=== PATIENT | female | born 1970 | race Caucasian/White ===

== ENCOUNTER 2022-01-24 09:26 | Outpatient (RCR) | payer MEDICARE, SELFPAY ==
--- OUTSIDE RECORDS SUMMARY | 2022-01-18 14:36 | XMS_ITS | Continuity of Care Document ---
:1970 Author Care Team Providers Name Role Phone MD Juvencio Penny Primary Care Physician BRIAN Solo Attending Physician Allergies, Adverse Reactions, Alerts No known allergies Social History Smoking Status Status Start Date End Date Date of Observat ion Ex-smoker (finding) October 20, 2021 11:32am Observation Status Observation Response Date of Response Former smoker April 30, 2019 2: 04pm Does not use illicit drugs April 30, 2019 2:04pm Occasional alcohol consumption April 302018 2:04pm Additional Data Assigned Sex Female Problems Active Problems Medical Problem Onset Date Status Claustrophobia Active Sjogren's disease Active Lupus Active Fibromyalgia Active Osteopenia Active Complex regional pain syndrome Active Primary hypercoagulable state Active Activated protein C resistance Active Prothrombin gene mutation Active Anticoagulation goal of INR 2 to Active 3 Colon polyps Resolved Subtherapeutic international Active normalized ratio (INR) dental prophylaxis Active Chronic sinusitis Active Constipation Active History of appendectomy Active History of bilateral tubal Active ligation History of cervical spinal Active surgery History of foot surgery Active History of hysterectomy Active Hx of colonoscopy March 30, 2020 Active Inactive/Resolved Problems Medical Problem Onset Date Status Follow up Resolved Medications Medication Status Dose Units Route Directions Qty Days Start End Ins tructions Date Date Calcium Active 500 MG PO Daily 100 Carbonate Cholecalcife Active Unknow PO Daily 100 rol (Vitamin n Dose D) Unknown Strength TAB Famotidine Active 20 MG PO Twice A Day January (Pepcid) 20 , Mg TAB 2019 10:13am Hydrocortiso Active 1 CRE MD Every 3-4 25 September ne Acetate Hours as , W/ Pram needed 2021 (Analpram Hc 11:21am 2.5-1 %) 1 Cre CRE Hydroxychlor Active 200 MG PO Twice A Day oquine Sulfate (Plaquenil) Unknown Strength TAB Mycophenolat Active 2500 PO Twice A Day 1500 in am e Mofetil 1000 in pm (Cellcept) Unknown Strength TAB Probiotic Active 1 PO Daily Product (Probiotic) TAB Trazodone Active 50 MG PO Bedtime 30 Hcl Vegetable/Fr Active 1 CAPSULE PO Daily uit Cap Warfarin Active 5 MG PO As Directed November Ness 5 MG, M 5 Sodium , MG, Tu 5 MG, 2021 W 5 MG, Th 5 9:59am MG, F 5 MG, Sa 5 MG Zolpidem Active 10 MG PO Bedtime as 30 Tartrate needed Amoxicillin/ Disconti 1 TAB PO Twice Daily Ma rch Clavulanate nued For 14 Days y , , Potassium 2021 2021 (Amoxicillin 10:43am 10:58a & Pot m Clavulanate) 875 Mg/125 Mg TAB Amoxicillin/ Disconti 1 TAB PO Twice A Day July brua Clavulanate nued , ry Potassium 2021 3rd, (Amoxicillin 9:30am 2021 & Pot 9:30am Clavulanate) 875 Mg/125 Mg TAB Amoxicillin/ Disconti 1 TAB PO Twice Daily September Clavulanate nued For 10 Days , , Potassium 2019 2019 (Amoxicillin 9:41am 9:52am & Pot Clavulanate) 875 Mg/125 Mg TAB Amoxicillin/ Disconti 1 TAB PO Twice Daily January st Clavulanate nued For 7 Days , , Potassium 2017 2017 (Amoxicillin 9:08am 11:14a & Pot m Clavulanate) 875 Mg/125 Mg TAB Apixaban Disconti 5-10 MG PO .as Direc 74 February 10 MG BID X 7 (Eliquis nued , 9, DAYS THEN 5 Starter 2020 2020 MG BID Pack) 5 Mg 11:55am 8:40am TAB B-Complex Disconti Unknow PO Daily 100 Februa Vitamins nued n Dose ry (Vitamin B 3rd, Complex) 2021 Unknown 9:30am Strength CAP Balance Of Disconti September Nature nued 2021 10:58a m Calcium/Maye Disconti Unknow PO Daily 100 Octobe min D nued n Dose r 4th, (Calcium 2019 Carbonate/Vi 2:23pm tamin D) Unknown Strength TAB Cyclosporine Disconti 1 DROP BOTH Twice A Day 60 Apri l (Restasis) nued EYES 10th, 0.05 % EMU 2018 7:57am Diazepam Disconti 5 MG PO Three Times 15 January (Valium) 5 nued A Day er , Mg TAB 2017 8:53am 3:53pm Diazepam Disconti 10 MG PO Once December Take 10m g 1 (Valium) 10 nued , 3rd, hour bef ore Mg TAB 2016 2016 procedure. 3:03pm 9:54am Diclofenac Disconti 2-4 GRAMS TOP Four Times January Sodium nued Daily r , (Voltaren) 2016 % GEL 11:48am 8:53am Diphtheria/T Disconti 0.5 ML IM Once October etanus/Acell nued 10th, 10th, Pertussis 2018 2018 (Adacel) 0.5 8:11am 8:46am Ml INJ Enoxaparin Disconti 60 MG SUBQ Twice A Day January 60mg subcutaneously twice a day for total of 7 days (follow Sodium nued , schedule disc ussed in clinic). 2019 2020 10:30am 7:40am Enoxaparin Disconti 60 MG SUBQ Twice A Day 6 November 60mg Sodium nued , , subcutaneousl 2019 2019 y twice a day 3:28pm 10:30a for total of m 5 days. Enoxaparin Disconti 60 MG SUBQ Twice A Day November Sodium nued 2019 9:27am 3:28pm Exovac Disconti Unknjanuary nued n Dose 2017 8:53am Famotidine Disconti 20 MG PO Twice A Day December (Pepcid) 20 nued , , Mg TAB 2019 2019 10:32am 10:13a m Famotidine Disconti 20 MG PO Twice A Day September (Pepcid) 20 nued , , Mg TAB 2019 2019 2:26pm 10:32a m Famotidine Disconti 20 MG PO Twice A Day October (Pepcid) 20 nued , 30th, Mg TAB 2018 2019 8:11am 2:26pm Famotidine Disconti 20 MG PO Twice A Day January (Pepcid) 20 nued 5th, 10th, Mg TAB 2016 2018 3:09pm 8:11am Flaxseed Disconti Unknow PO October (Linseed) nued n Dose 10th, (Flaxseed 2019 Oil) Unknown 7:57am Strength CAP Fluconazole Disconti 150 MG PO Once January 1 ta b by mouth once at start of yeast infection; november repeat nued , , in 72 hours if needed. 2017 2017 9:08am 11:14a m Fluticasone Disconti 2 SPRAY EACH Daily as April Propionate nued NOSTR needed , , (Nasal) 2019 2020 10:07am 7:40am Fluticasone Disconti 2 SPRAY EACH Daily as Decemberobe Propionate nued NOSTR needed , r , (Nasal) 2019 2019 12:16pm 10:07a m Fluticasone Disconti 2 SPRAY EACH Daily as October Propionate nued NOSTR needed , , (Nasal) 2018 2019 8:11am 12:16p m Fluticasone Disconti 2 SPRAY EACH Daily February Propionate nued NOSTR , , (Nasal) 2017 2018 11:39am 8:11am Influenza Disconti 0.5 ML IM Once Virus nued r , er Vaccine 2020 06, Split 8:21am 2019 (Fluzone 8:22am Quadrivalent 2019 0.5 Ml) 1 Inj INJ Loteprednol Disconti 0.5 % OP January Etabonate nued , (Lotemax) 2017 0.5 % SERGIO 8:53am Magnesium Disconti Unknow PO Daily 100 Februa Oxide nued n Dose ry 2021 9:30am Methylpredni Disconti 1 TAB PO As Directed Ju ly DIRECTED solone nued er , ON PACKAGE (Medrol 2017 Dosepak) 2016 8:53am Mg ARTIS 1:26pm Ondansetron Disconti 4 MG PO Every 6 September Hcl nued Hours as , , needed 2021 2021 11:21am 9:44am Phenazopyrid Disconti 100 MG PO Three Times January st ine Hcl nued A Day as , (Pyridium) needed 2017 2017 100 Mg TAB 9:43am 11:14a m Phytonadione Disconti 5 MG PO Once February (Aqua-Mephyt nued , , on (Vitamin 2020 2020 K)) 10 Mg/Ml 3:17pm 3:21pm INJ Prednisone Disconti 10 MG PO As Directed Februa nued ry 2021 9:30am Prednisone Disconti 20 MG PO Daily February nued , , 2017 2018 11:36am 7:52am Trazodone Disconti Unknow PO Bedtime 23 February Hcl nued n Dose 2020 7:40am Warfarin Disconti 5 MG PO As Directed November Ness 5 MG, M 5 Sodium nued , , MG, Tu 5 MG, 2021 2021 W 5 MG, Th 5 9:32am 9:59am MG, F 5 MG, Sa 5 MG Warfarin Disconti 5 MG PO As Directed October Ness 5 MG, M 5 Sodium nued , 11th, MG, Tu 5 MG, 2021 2021 W 5 MG, Th 5 10:00am 9:32am MG, F 5 MG, Sa 5 MG Warfarin Disconti 5 MG PO As Directed September Ness 5 MG, M 5 Sodium nued , , MG, Tu 5 MG, 2021 2021 W 5 MG, Th 5 10:25am 10:00a MG, F 5 MG, m Sa 5 MG Warfarin Disconti 5 MG PO As Directed September Ness 5 MG, M 5 Sodium nued , , MG, Tu 5 MG, 2021 2021 W 5 MG, Th 5 9:29am 10:25a MG, F 5 MG, m Sa 5 MG Warfarin Disconti 5 MG PO As Directed September Ness 5 MG, M 5 Sodium nued y , , MG, Tu 5 MG , 2021 2021 W 5 MG, Th 5 8:52am 9:29am MG, F 5 MG, Sa 5 MG Warfarin Disconti 5 MG PO As Directed ua Ness 5 MG, M 5 Sodium nued y 16th, ry MG, Tu 5 MG , 2021, W 5 MG, Th 5 10:13am 2021 MG, F 5 MG, 8:52am Sa 5 MG Warfarin Disconti 5 MG PO As Directed uar Februa Ness 5 MG, M 5 Sodium nued y 3rd, ry MG, Tu 5 MG, 2021, W 5 MG, Th 5 9:44am 2021 MG, F 5 MG, 10:13a Sa 5 MG m Warfarin Disconti 5 MG PO As Directed Julyua Ness 5 MG, M 4 Sodium nued 17th, ry MG, Tu 5 MG, 2021 09, W 4 MG, Th 5 3:01pm 2021 MG, F 4 MG, 9:44am Sa 5 MG Warfarin Disconti 4 MG PO As Directed Julyua Ness 5 MG, M 4 Sodium nued 17th, ry MG, Tu 5 MG, 2021 09, W 4 MG, Th 5 3:01pm 2021 MG, F 4 MG, 9:30am Sa 5 MG Warfarin Disconti 4 MG PO As Directed mbe Januar Ness 5 MG, M 4 Sodium nued r 21st, y MG, Tu 5 MG , 2020, W 4 MG, Th 5 3:19pm 2021 MG, F 4 MG, 3:01pm Sa 5 MG Warfarin Disconti 5 MG PO As Directed mbe Januar Ness 5 MG, M 4 Sodium nued r 21st, y MG, Tu 5 MG , 2020, W 4 MG, Th 5 3:19pm 2021 MG, F 4 MG, 3:01pm Sa 5 MG Warfarin Disconti 4 MG PO As Directed mbe Decemb Ness 5 MG, M 4 Sodium nued r 16th, er MG, Tu 5 MG , 2020, W 4 MG, Th 5 2:06pm 2020 MG, F 4 MG, 3:19pm Sa 5 MG Warfarin Disconti 5 MG PO As Directed Decembe Decemb Ness 5 MG, M 4 Sodium nued r 16th, er MG, Tu 5 MG , 2020, W 4 MG, Th 5 2:06pm 2020 MG, F 4 MG, 3:19pm Sa 5 MG Warfarin Disconti 4 MG PO Daily 26 May Decemb Ness 5 MG, M 4 Sodium nued 28th, er MG, Tu 5 MG, 2020, W 4 MG, 10:06am 2020 MG, F 4 MG, 2:06pm Sa 5 MG Warfarin Disconti 5 MG PO Daily Ness 5 MG, M 4 Sodium nued r , er MG, Tu 5 MG , 2020, W 4 MG, 10:16am 2020 MG, F 4 MG, 2:06pm Sa 5 MG Warfarin Disconti 5 MG PO Daily April Ness 5 MG, M 4 Sodium nued , er MG, Tu 5 MG, 2020, W 4 MG, 10:06am 2020 MG, F 4 MG, 10:16a Sa 5 MG m Warfarin Disconti 4 MG PO Daily Ness 5 MG, M 4 Sodium nued er r MG, Tu 5 MG, , , W 4 MG, 2020 MG, F 4 MG, 1:38pm 10:06a Sa 5 MG m Warfarin Disconti 5 MG PO Daily Ness 5 MG, M 4 Sodium nued er r MG, Tu 5 MG, , , W 4 MG, 2020 MG, F 4 MG, 1:38pm 10:06a Sa 5 MG m Warfarin Disconti 6 MG PO As Directed January S u 6 MG, M 6 Sodium nued , ailin MG, Tu 3 MG, 2020, W 6 MG, Th 3 9:00am 2020 MG, F 6 MG, 1:41pm Sa 6 MG Warfarin Disconti 4 MG PO Daily Marem Ness 5 MG, M 4 Sodium nued er ailin MG, Tu 5 MG, , 30, W 4 MG, 2020 MG, F 4 MG, 8:48am 1:38pm Sa 5 MG Warfarin Disconti 5 MG PO Daily Ness 5 MG, M 4 Sodium nued er ailin MG, Tu 5 MG, , 30, W 4 MG, 2020 MG, F 4 MG, 8:48am 1:38pm Sa 5 MG Warfarin Disconti 4 MG PO Daily Ness 5 MG, M 4 Sodium nued er ailin MG, Tu 5 MG, , , W 4 MG, 5 2020 2020 MG, F 4 MG, 12:24pm 8:48am Sa 5 MG Warfarin Disconti 5 MG PO Daily Ness 5 MG, M 4 Sodium nued er ailin MG, Tu 5 MG, , , W 4 MG, Th 5 2020 2020 MG, F 4 MG, 12:24pm 8:48am Sa 5 MG Warfarin Disconti 4 MG PO Daily Ness 5 MG, M 4 Sodium nued er 2nd, ailin MG, Tu 5 MG , 2020, W 4 MG, Th 5 10:39am 2020 MG, F 4 MG, 12:24p Sa 5 MG m Warfarin Disconti 5 MG PO Daily Ness 5 MG, M 4 Sodium nued er 2nd, ailin MG, Tu 5 MG , 2020, W 4 MG, 5 10:39am 2020 MG, F 4 MG, 12:24p Sa 5 MG m Warfarin Disconti 6 MG PO As Directed January Ness 6 MG, M 6 Sodium nued , , MG, Tu 6 MG, 2020 2020 W 6 MG, Th 3 8:32am 9:00am MG, F 6 MG, Sa 6 MG Warfarin Disconti 6 MG PO As Directed December Ness 6 MG, M 6 Sodium nued , , MG, Tu 6 MG, 2020 2020 W 6 MG, Th 3 10:45am 8:32am MG, F 6 MG, Sa 6 MG Warfarin Disconti 6 MG PO As Directed September Ness 6 MG, M 6 Sodium nued , , MG, Tu 6 MG, 2020 2020 W 6 MG, Th 3 2:33pm 10:45a MG, F 6 MG, m Sa 6 MG Warfarin Disconti 6 MG PO As Directed September Ness 6 MG, M 6 Sodium nued r 9, 2nd, MG, Tu 6 MG, 2019 2020 W 6 MG, Th 3 10:55am 2:33pm MG, F 6 MG, Sa 6 MG Warfarin Disconti 6 MG PO As Directed April Ness 6 MG, M 6 Sodium nued 9th, er MG, Tu 6 MG, 2020 03, W 6 MG, 8:43am 2020 MG, F 6 MG, 10:55a Sa 6 MG m Warfarin Disconti 6 MG PO As Directed January S u 6 MG, M 6 Sodium nued , r 9th, MG, Tu 6 MG, 2019 2019 W 6 MG, 2:24pm 8:43am MG, F 6 MG, Sa 6 MG Warfarin Disconti 6 MG PO As Directed October Ness 6 MG, M 6 Sodium nued , 8th, MG, Tu 6 MG, 2019 2019 W 6 MG, 5:01pm 2:24pm MG, F 6 MG, Sa 6 MG Warfarin Disconti 6 MG PO As Directed October Ness 6 MG, M 6 Sodium nued , , MG, Tu 6 MG, 2019 2019 W 6 MG, 12:50pm 5:01pm MG, F 6 MG, Sa 6 MG Warfarin Disconti 6 MG PO Daily July Ness 6 M G, M 6 Sodium nued , 9, MG, Tu 3 MG, 2019 2019 W 6 MG, 1:21pm 12:50p MG, F 6 MG, m Sa 6 MG Warfarin Disconti 6 MG PO Daily April Ness 6 MG, M 6 Sodium nued , y 9, MG, Tu 3 MG, 2018 2019 W 6 MG, 9:33am 1:21pm MG, F 6 MG, Sa 6 MG Warfarin Disconti 6 MG PO Daily April Ness 6 MG, M 6 Sodium nued 3rd, r MG, Tu 3 MG, 2018, W 6 MG, 10:42am 2019 MG, F 6 MG, 9:33am Sa 6 MG Warfarin Disconti 6 MG PO Daily February Ness 6 M G, M 3 Sodium nued , r 3rd, MG, Tu 6 MG, 2018 2018 W 6 MG, 1:45pm 10:42a MG, F 6 MG, m Sa 3 MG Warfarin Disconti 6 MG PO Daily January Ness 6 MG , M 3 Sodium nued , , MG, Tu 6 MG, 2018 2018 W 6 MG, 3:16pm 1:45pm MG, F 6 MG, Sa 3 MG Warfarin Disconti 6 MG PO Daily December Ness 6 MG, M 3 Sodium nued 17th, 3rd, MG, Tu 6 MG, 2018 2018 W 6 MG, 11:43am 3:16pm MG, F 6 MG, Sa 3 MG Warfarin Disconti 6 MG PO Daily October Ness 6 MG, M 3 Sodium nued 25th, 17th, MG, Tu 6 MG, 2018 2018 W 6 MG, 9:33am 11:43a MG, F 6 MG, m Sa 3 MG Warfarin Disconti 6 MG PO Daily October Ness 6 MG, M 3 Sodium nued 10th, 25th, MG, Tu 6 MG, 2018 2018 W 6 MG, 8:11am 9:33am MG, F 6 MG, Sa 3 MG Warfarin Disconti 6 MG PO Daily October Ness 6 M G, M 3 Sodium nued y , 10th, MG, Tu 6 MG , 2018 2018 W 6 MG, 11:28am 8:11am MG, F 6 MG, Sa 3 MG Warfarin Disconti 6 MG PO Daily July Ness 6 MG, M 3 Sodium nued 30th, ry MG, Tu 6 MG, 2018, W 6 MG, 11:08am 2018 MG, F 6 MG, 11:28a Sa 3 MG m Warfarin Disconti 6 MG PO Daily July Ness 6 MG, M 3 Sodium nued 4th, y MG, Tu 6 MG, 2018, W 6 MG, 2:16pm 2018 MG, F 6 MG, 11:08a Sa 3 MG m Warfarin Disconti 6 MG PO Daily April Ness 6 MG, M 3 Sodium nued 11th, y 4th, MG, Tu 6 MG, 2017 2018 W 6 MG, 8:41am 2:16pm MG, F 6 MG, Sa 6 MG Warfarin Disconti 6 MG PO Daily Ness 6 MG, M 3 Sodium nued er r MG, Tu 6 MG, , , W 6 MG, 2017 MG, F 6 MG, 9:46am 8:41am Sa 6 MG Warfarin Disconti 6 MG PO Daily Ness 6 MG, M 6 Sodium nued er ailin MG, Tu 6 MG, , W 6 MG, 2017 MG, F 6 MG, 9:29am 9:46am Sa 6 MG Warfarin Disconti 6 MG PO Daily February Ness 6 M G, M 6 Sodium nued 17, ailin MG, Tu 6 MG, 2017, W 6 MG, 6 3:57pm 2018 MG, F 6 MG, 9:29am Sa 6 MG Warfarin Disconti 6 MG PO Daily January Ness 6 MG , M 6 Sodium nued , 17, MG, Tu 6 MG, 2017 2017 W 6 MG, 6 11:47am 3:57pm MG, F 6 MG, Sa 6 MG Warfarin Disconti 6 MG PO Daily January Ness 6 MG, M 6 Sodium nued , , MG, Tu 6 MG, 2017 2017 W 6 MG, 6 8:58am 11:47a MG, F 6 MG, m Sa 6 MG Warfarin Disconti 6 MG PO Daily 23 February Ness 6 MG, M 6 Sodium nued , MG, Tu 6 MG, 2017 W 6 MG, 6 8:45am MG, F 6 MG, Sa 6 MG Warfarin Disconti 6 MG PO Daily 23 February Ness 6 MG, M 6 Sodium nued , MG, Tu 6 MG, 2017 W 6 MG, 6 8:58am MG, F 6 MG, Sa 6 MG Warfarin Disconti 6 MG PO Daily December Ness 6 MG, M 6 Sodium nued , , MG, Tu 6 MG, 2017 2017 W 6 MG, 6 9:09am 8:58am MG, F 6 MG, Sa 6 MG Warfarin Disconti 6 MG PO Daily 24 January Ness 6mg M 6mg Sodium nued 14, Tu 6mg W 6mg 2017 6mg F 6mg 9:09am Sa 6mg Warfarin Disconti 6 MG PO Daily December Sodium nued er 2017 9:09am 12:39pm Zolpidem Disconti Unknow PO Bedtime 23 February Tartrate nued n Dose , (Ambien) 2020 Unknown 7:40am Strength TAB Immunizations Immunization Event Date Not Given Dose Plate Hanger Lot Vac cine Reason Number Number Informatio n Statement (VIS) Deta il Influenza May 28 SANOFI [id number] 2019 Tdap November 04 SANOFI [id number] (adolescent/adul 2019 t) Procedures Procedure Date Performed Status Future Lab INR December 26, 2021 completed Relevant Diagnostic Tests and/or Laboratory Data Laboratory Results Test Date/Time Result Interpretation Reference Result Perfo rming Range Comment Site Factor II September Negative Indication [facility] (Prothrombi [address] n) Mutation 10:19am Assess [facility] [id number] genetic risk for thrombosis.NE GATIVE: The Factor II, prothrombin [id number] mutation, was notdetected. Other causes of elevated prothrombin levels andhereditary forms of venous thrombosis have not been excluded.Stepan mmendations: If clinically indicated, testing for otherinherite d or acquired thrombophilic disorders is recommendedin cluding DNA testing for the factor V Leiden mutation,gabby urement of total plasma homocysteine concentration ,serological assays for anticardiolip in antibodies, multiplephosp holipid-depen dent coagulation assays for lupus inhibitor,pro tein C activity, protein S activity or free protein Santigen, and antithrombin activity.This result has been reviewed and approved by Sara Dunham M.D., Ph.D.BACKGROU ND INFORMATION: 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 The expression of Factor II thrombophilia is impacted bycoexisting genetic thrombophilic disorders, acquiredthrom bophilic disorders (eg, malignancy, hyperhomocyst einemia,high factor VIII levels), and circumstances including:pre gnancy, oral contraceptive use, hormone replacement therapy,selec tive estrogen receptor modulators, travel, central venouscathete rs, surgery, and organ transplantati on.INCIDENCE: Approximately 2 percent of Caucasians and 0.3 percentof Americans are heterozygous; homozygosity occurs in 1in 10,000 individuals.I NHERITANCE: Incomplete autosomal dominant.PENE TRANCE: The risk of thrombosis is increased 2-4 fold forheterozygo darian and further increased for homozygotes.C AUSE: Homozygosity or heterozygosit y for F2 c.*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 F2 gene variants, other than c.*97G>A ([id number]),mariana l not be detected.This test was developed and its performance characteristi csdetermined by [facility]. It has not been cleared orapproved by the [place] Food and Drug Administratio n. This test wasperformed in a CLIA certified laboratory and is intended forclinical purposes.Coun seling and informed consent are recommended for genetictestin g. Consent forms are available online.Perfor med By: VALil [address]key [address], [place] [address]Nvaqxrbm ry Director: Anju Andujar MD, MS Reference September Whole Blood [facility] Lab Test [address] Source 10:19am [facility] [address] D-Dimer, December 26, 1.39 0.00-0.50 [facility] Lab Quantitativ 2021 [address] [facility] e 10:25am [facility] [address] Lupus September 24.7 12.0-15.5 [facility] Anticoagula [address] nt PT 10:19am [facility] [address] Lupus September 49 32-48 [facility] Anticoagula [address] nt APTT 10:[address] [facility] [address] Lupus September 16.6 14.7-19.5 [facility] Anticoagula [address] nt Thrombin 10:19am [facility] [address] Time Reptilase-R September Not <=21.9 [facility] Time [address] 10:[address] [facility] [address] PTT Heparin September Not 32-48 [facility] Neutralized [address] 10:[address] [facility] [address] Lupus September 37 32-48 [facility] Anticoag [address] PTT 10:[address] [facility] [address] Mix/Correct ion Platelet September Not Negative [facility] Neutralizat [address] ion 10:19am [facility] [address] Dil Dane September 42 33-44 [facility] Viper Darrel [address] Scrn 10:[address] [facility] [address] Seconds Dil Dane September Not 33-44 [facility] Viper Venom [address] Time Mix 10:19am [facility] [address] Dil Dane September Not Negative [facility] Viper Venom [address] Conf (Lupus 10:19am [place] [address] Hexagonal September Not Negative [facility] Phospholipi [address] d 10:[address]am [facility] [address] Neutralizat Lupus September See Note Lupus [facility] Anticoagula [address] nt 10:19am not [facility] [address] Interpretat detected.The ion PTT is prolonged and corrects in a 1:1 mix with poolednormal plasma, indicating a possible factor deficiency. However,corre ction in a 1:1 mix can also occur with weak inhibitors thatare diluted in the mixing study.Lupus anticoagulant antibodies are heterogeneous and antibodytiter s fluctuate over time. Laboratory tests used to identifylupus anticoagulant s demonstrate variable sensitivity. If thereis strong clinical suspicion for antiphospholi pid antibodysyndr ome (APS), consider testing for cardiolipin and beta-2glycopr otein 1 antibodies (IgG and IgM) if this testing has notalready been performed.Per formed By: [facility] [address] [place], [place] [address]Kbquasnu ry Director: Anju Andujar MD, MS Beta-2 October 31, <10 <=20 [facility] Glycoprotei [address] n I IgG Ab 10:20am [facility] [address] Beta-2 October 31, <10 <=20 [facility] Glycoprotei 2021 INFORMATION: [address] n I IgM Ab 10:20am [id number] [facility] [address] n I, IgG and IgM AntibodyThe persistent presence of IgG and/or IgM beta 2 glycoprotein I(B2GPI) antibodies is a laboratory criterion for the diagnosisof antiphospholi pid syndrome (APS). Persistence is defined asmoderate or high levels of IgG and/or IgM B2GPI antibodiesdet ected in two or more specimens drawn at least 12 weeks apart(J Throm Haemost. 2006;4:295-30 6). B2GPI results greater than 20SGU (IgG) and/or SMU (IgM) are considered positive based on thecutoff values established for this test. International referencemate rials and consensus units for anti-B2GPI antibodies have notbeen established (Clin Ynes Acta. 2012;413(1-2) :358-60;Arthr itis Rheum. 2012;64(1):1- 10.); results can be variablebetwe en different commercial immunoassays and cannot becompared. Strong clinical correlation is recommended for adiagnosis of APS. Low positive IgG and IgM B2GPI antibody levelsshould be interpreted in light of APS-specific clinicalmanif estations and/or other criteria phospholipid antibody tests.Perform ed By: [facility] [address] [place], [place] [address]Nyavifrn ry Director: Anju Andujar MD Beta-2-Micr September 1.6 0.8-2.4 Performed By: [facility] oglobulin [address] [facility] [address] 10:19am Laboratories5 [facility] [address] [address] [place], [place] [address]Hfmsarwg ry Director: Anju Andujar MD Anti-Cardio March <10 <=14 [facility] lipin IgG 2021 INFORMATION: [address] Antibody 10:19am Anti-Cardioli [facility] [address] pin IgG Ab<=14 GPL: [id number] GPL: Indeterminate 20-80 GPL: Low to Moderately [id number] GPL or above: High PositiveThe persistent presence of IgG and/or IgM cardiolipin (CL)antibodie s in moderate or high levels (greater than 40 GPLand/or greater than 40 MPL units) is a laboratory criterion forthe diagnosis of antiphospholi pid syndrome (APS). Persistence isdefined as moderate or high levels of IgG and/or IgM CLantibodies detected in two or more specimens drawn at least 12weeks apart (J Throm Haemost. 2006;4:295-30 6). Lower positivelevel s of IgG and/or IgM CL antibodies (above cutoff but lessthan 40 GPL and/or less than 40 MPL units) may occur in patientswith the clinical symptoms of APS; therefore, the actualsignifi cance of these levels is undefined. Results should not beused alone for diagnosis and must be interpreted in light ofAPS-specifi c clinical manifestation s and/or other criteriaphosp holipid antibody tests. Anti-Cardio September 12 <=12 [facility] lipin IgM 2021 INFORMATION: [address] Antibody 10:19am Anti-Cardioli [facility] [address] pin IgM<=12 MPL: [id number] MPL: Indeterminate 20-80 MPL: Low to Moderately [id number] MPL or above: High PositiveThe persistent presence of IgG and/or IgM cardiolipin (CL)antibodie s in moderate or high levels (greater than 40 GPLand/or greater than 40 MPL units) is a laboratory criterion forthe diagnosis of antiphospholi pid syndrome (APS). Persistence isdefined as moderate or high levels of IgG and/or IgM CLantibodies detected in two or more specimens drawn at least 12weeks apart (J Throm Haemost. 2006;4:295-30 6). Lower positivelevel s of IgG and/or IgM CL antibodies (above cutoff but lessthan 40 GPL and/or less than 40 MPL units) may occur in patientswith the clinical symptoms of APS; therefore, the actualsignifi cance of these levels is undefined. Results should not beused alone for diagnosis and must be interpreted in light ofAPS-specifi c clinical manifestation s and/or other criteriaphosp holipid antibody tests. Anti-Cardio September10 <=11 INTERPRETIVE Taun[facility] lipin IgA 2021 INFORMATION: [address] [employer] Antibody 10:19am Cardiolipin [facility] [address] Antibodies, IgA<=11 APL: [id number] APL: Indeterminate 20-80 APL: Low to Moderately Taheidjs97 APL or above: High PositivePerfo rmed By: [facility] [place], [place] [address]Laqcpdjp ry Director: Anju Andujar MD Functional October 14 83-168 INTERPRETIVE [facility] Protein C 2021 INFORMATION: [address] 10:19am Protein C, [facility] [address] FunctionalPat ients on warfarin may have decreased protein C values.Patien ts should be off warfarin therapy for two weeks foraccurate measurement of protein C levels. Artificially increasedfunc tional protein C values may be due to heparin therapy or thepresence of direct thrombin inhibitors or factor Xa inhibitors.Ac cess complete set of age- and/or gender-specif ic referenceinte rvals for this test in the [employer] Test Directory([employer]). Functional September 57-131 INTERPRETIVE [facility] Protein S 2021 INFORMATION: [address] [employer] 10:19am Protein S, [facility] [address] FunctionalPat ients on warfarin may have decreased functional protein Svalues. Patients should be off warfarin therapy for two weeksfor accurate measurement of functional protein S. Artificiallyi ncreased functional protein S values may be due to heparintherap y or the presence of direct thrombin inhibitors or factorXa inhibitors.Ac cess complete set of age- and/or gender-specif ic referenceinte rvals for this test in the [employer] Test Directory([employer]).Per formed By: [facility] [address] Director: Anju Andujar MD, MS Coagulation September Negative Indication [facility] Factor V 2021 for testin [place] [employer] Leiden 10:19am Assess [facility] [address] genetic risk for thrombosis.NE GATIVE: The factor V Leiden variant, c.1601G>A; p.[id number],w as not detected. This does not exclude a genetic cause forthrombophi shin. If this individual has had a previous venousthrombo embolism, this negative result is unlikely tosignificant ly reduce the risk for recurrence; thus, futureclinica l management to reduce recurrence should not be altered.This result has been reviewed and approved by Anthony Jama, Ph.D.SAMIA CHAU INFORMATION: Factor V Leiden (F5) R506Q MutationCHARA CTERISTICS: Venous thromboemboli sm (VTE) is multifactoria lcaused by a combination of genetic and environmental factors.The Factor V Leiden (FVL) variant is the most common cause ofinherited VTEs, accounting for over 90 percent of activatedprot ein C (APC) resistance. Because the FVL variant eliminatesthe APC cleavage site, factor V is inactivated slower, thuspersistin g longer in blood circulation, leading to more thrombinprodu ction. Other genetic risk factors for VTE include, male sexand variants in antithrombin, protein C, protein S, or factorXIII. Non-genetic risk factors include, age, smoking, prolongedimmo bilization, malignant neoplasms, surgery, , oralcontracep tives, estrogen replacement therapy, tamoxifen andraloxifene therapy.INCID ENCE OF FACTOR V LEIDEN VARIANT: Approximately 5 percent ofCaucasians, 2 percent of Hispanics, 1 percent of AfricanAmeric ans and 0.5 percent of Asians are heterozygous; homozygosity occurs in 1 in 1500 Caucasians.IN HERITANCE: Semi-dominant ; both heterozygotes and homozygotesar e at increased risk for VTE.PENETRANC E: Lifetime risk of VTE is 10 percent for heterozygotes and 80 percent of homozygotes.C AUSE: The pathogenic gain of function in the F5 gene variantc.1601 G>A (p.[id number]) . Legacy nomenclature: R506Q (1691G>A)CLIN ICAL SENSITIVITY: 20-50 percent of individuals with anisolated VTE have the FVL variant.METHO DOLOGY: Polymerase chain reaction and fluorescencem onitoring.ALISHA LYTICAL SENSITIVITY AND SPECIFICITY: 99 percent.LIMIT ATIONS: Diagnostic errors can occur due to rare sequencevaria tions. F5 gene mutations, other than p.Juk729Zss, will notbe detected.This test was developed and its performance characteristi csdetermined by [employer]. It has not been cleared orapproved by the [place] Food and Drug Administratio n. This test wasperformed in a CLIA certified laboratory and is intended forclinical purposes.Coun seling and informed consent are recommended for genetictestin g. Consent forms are available online.Perfor med By: [facility] [place], [place] [address]Cwqlzvmw ry Director: Anju Andujar MD, MS Coagulation September Whole [facility] Specimen [address] Comment 10:19am [facility] [address] [address] [facility] us Test 2021 AG 1999 [facility] 10:19am [facility] [address] M[facility] [facility] SEE REF LAB [facility] Lab us Test 2021 SCAN 1999 [facility] Result 10:19am [facility] [address] M[facility]o [facility] us Test 2021 [facility] Performing 10:19am [facility] [address] [facility] Advance Directives Advance Directive Response Recorded Date/Time Has patient completed a No October 20, 2021 11:32am Health Care Directive? Insurance Providers Guarantor Charo Yost S Address [address] [address] Contact Info. Home Phone: CELL Payer Policy Id Coverage Id Subscriber's Subscriber Id Effective E xpiration Name Date Date [facility] [id number] Stuart, Medicare Kimberly S Plans Encounters Encounter Location(s) Arrival/Admit Date Discharge/Depart Date Provider(s) Registered [facility] December 26, 2021 Linn Sequeira [facility] 7:01am Plan of Treatment Future Tests Future scheduled test information is unavailable Pending Tests Pending diagnostic test information is unavailable Future Visits Future appointment information is unavailable Referrals to Other Providers Reason for Referral Start Provider Provider Contact Provider Address Referral Date Information Papo Penny Phone: BRANDY STATION LACHELLE Henning MD [address] [phone] Future Procedures Future procedure information is unavailable Future Medications Future medication information is unavailable Patient Instructions See Additional Instructions
[2022-01-24 10:05] LABS: D Dimer Quantitative* 1.13 ug/ml (0.00-0.50)
== END 2022-01-24 23:59 | disposition home or self-care (01) ==
LOC: CCIC 09:26
PROVIDERS: PCP Family Medicine; Visit Provider Internal Medicine Hematology & Oncology
DX: D68.59 Other primary thrombophilia (principal); M32.9 Systemic lupus erythematosus, unspecified
CPT/HCPCS: 36415; 85379

== ENCOUNTER 2022-01-30 11:17 | Outpatient (RCR) | payer MEDICARE, SELFPAY | END 2022-02-24 23:59 | disposition home or self-care (01) | LOC: CCIC 11:17 | PROVIDERS: PCP Family Medicine; Visit Provider Internal Medicine Hematology & Oncology | DX: D68.59 Other primary thrombophilia (principal); M32.9 Systemic lupus erythematosus, unspecified | CPT/HCPCS: 99212; 99213; 99214 ==

== ENCOUNTER 2022-04-02 11:11 | Outpatient (CLI) | payer MEDICARE, SELFPAY ==
--- NOTE | 2022-04-02 11:30 | CRLHL7_ITS ---
For Patients: As a result of the Century Cures Act, medical imaging exams and procedure reports are released immediately into your electronic medical record. You may view this report before your referring provider. If you have questions, please contact your health care provider. BILATERAL SCREENING MAMMOGRAM WITH COMPUTER-AIDED DETECTION TECHNIQUE: CC and MLO views were obtained. These mammographic images have been obtained using full-field digital technique. These mammographic images were interpreted with the benefit of computer-aided detection. COMPARISON FILM: 02/12/21, 01/03/20, 11/09/18. FINDINGS: There are scattered areas of fibroglandular density IMPRESSION: There is no radiographic evidence for malignancy. ASSESSMENT: BI-RADS Category 1: Negative RECOMMENDATION: Routine screening mammogram in 1 year. A lay language report of this examination will be provided to the patient. Joe Torres M.D. Diagnostic Radiologist [email or web address] DUSTIN/Dictated by: Joe Torres MD @ 04/02/2022 11:45:00 AM (Electronically Signed)
== END 2022-04-02 11:12 | disposition home or self-care (01) ==
LOC: MAMMO 11:11
PROVIDERS: PCP Family Medicine; Visit Provider Family Medicine
DX: Z12.31 Encounter for screening mammogram for malignant neoplasm of breast (principal)
CPT/HCPCS: 77067

== ENCOUNTER 2022-05-08 10:44 | Outpatient (RCR) | payer MEDICARE, SELFPAY ==
[2022-05-01 09:47] LABS: D Dimer Quantitative* 0.81 ug/ml (0.00-0.50)
== END 2022-10-28 23:59 | disposition home or self-care (01) ==
LOC: CCIC 10:44
PROVIDERS: PCP Family Medicine; Visit Provider Internal Medicine Hematology & Oncology
DX: D68.59 Other primary thrombophilia (principal); Z79.01 Long term (current) use of anticoagulants; M32.9 Systemic lupus erythematosus, unspecified
CPT/HCPCS: 36415; 85379; 99212; 99213; 99214

== ENCOUNTER 2022-06-21 07:37 | Day surgery (SDC) | payer MEDICARE, SELFPAY ==
[2022-06-21] VITALS (11 sets, daily range): BP systolic 120–145; BP diastolic 70–85; PULSE 64–87; RESP 12–16; TEMP 36.3–36.5; O2SAT 98–100; BMI 24.9
[2022-06-21] MEDS: SODIUM CHLORIDE 0.9 % (FLUSH) 10 ML SYRINGE IVF (08:00)
[2022-06-21] MEDS: OXYMETAZOLINE 0.05% NASAL SPRAY 2 SPRAY NOSTRIL-B (08:00)
[2022-06-21] MEDS: LACTATED RINGERS 1000 ML 1,000 ML 100 ML IV ×2 (08:00→10:58)
--- NOTE | 2022-06-21 08:07 | SUR.PREOP ---
HOME ANTIGEN COVID TEST NEGATIVE DONE 06/20/22 @0900.
[2022-06-21] MEDS: COCAINE HCL 4 % 4 ML SOLUTION NOSTRIL-B (10:33)
[2022-06-21] MEDS: BUPIVACAINE 0.5 %/EPI 1:200K 30 ML INJECTION (10:40)
--- NOTE | 2022-06-21 11:03 | W.PM.ENTPROC ---
Procedure Note Date of procedure: 06/21/22 Procedure: Preoperative diagnosis chronic right maxillary rhinosinusitis, deviated septum, inferior turbinate hypertrophy, nasal obstruction Postoperative diagnosis same Procedure cyst nasal septoplasty, submucous partial resection inferior turbinates, endoscopic right maxillary antrostomy with tissue removal. Note that image guidance in 0 degree endoscope was used throughout the procedure. Under general endotracheal anesthesia patient was prepped and draped in usual fashion and nose decongested injected. The 15 blade was used to make an incision in the septal mucosa anterior to the area 3 4 deflection. The mucosa was elevated on the right side. That incision with a Lisa dissector was made to to go through the cartilage and elevate the mucosa on the opposite side. A turbinate scissors was used to remove the large impaction. A piece of this was trimmed and returned to intraseptal space. A stab incision was made in the anterior left inferior turbinate a tunnel created with a [place] dissector. The robbie bone was outfractured and a conservative anterior submucous resection performed. The Coblation was used for hemostasis and to cauterize intramurally along the inferior 10%. The inferior quarter of the uncinate process on the right side was taken down exposing natural ostium to maxillary sinus. This was occluded by polyp tissue which was removed in a 9 mm antrostomy created. Inspissated mucus and thickened mucosa was removed from the floor of the sinus. A Merocel pack coated in Bactroban was trimmed lengthwise and placed in the middle meatus on each side. The patient tolerated procedure well was taken recovery in satisfactory condition. Blood loss during procedure was less than 25 mL. Complications 0 Surgeon: Glenn Cole MD
--- NOTE | 2022-06-21 11:22 | W.ANESCHARGE ---
Anesthesia Charges Start Date/Time Anesthesia Start Date: 06/21/22 Anesthesia Start Time: 10:15 Stop Date/Time Anesthesia Stop Date: 06/21/22 Anesthesia Stop Time: 11:20 Summary Emergency: No
[2022-06-21] MEDS: OXYCODONE 5 MG TABLET PO (12:00)
== END 2022-06-21 12:30 | disposition home or self-care (01) ==
PROVIDERS: PCP Family Medicine; Visit Provider Otolaryngology
PROC: (CPT 31231; principal; 2022-06-21 09:15)
DX: J34.2 Deviated nasal septum (principal); J32.0 Chronic maxillary sinusitis; J34.3 Hypertrophy of nasal turbinates; J34.89 Other specified disorders of nose and nasal sinuses
CPT/HCPCS: 30520; 30140; 31267; 00160; 84703; 88305; 88312; A9270; J0330; J1100; J2250; J2405; J2704; J3010; J3490; J7120

== ENCOUNTER 2023-01-15 08:03 | Outpatient (CLI) | payer MEDICARE, SELFPAY ==
--- OUTSIDE RECORDS SUMMARY | 2023-01-15 08:06 | XMS_ITS | Continuity of Care Document ---
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 Name Role Phone Christiano Bowden MD Unavailable Unavailable Allergies, Adverse Reactions, Alerts Substance Reaction Status Criticality No Known Allergies Active No Inform ation Medications Medication Instructions Dosage Effective Dates (start - stop) Status Comments hydrocodone 5 mg-acetaminophen 325 mg tablet take 1 tablet by oral route twice daily as needed - Active Chronic pain ZOLPIDEM TARTRATE 10 MG TABLET TAKE 1 TABLET BY MOUTH AT BEDTIME NEEDED FOR INSOMNIA 10 MG - Active HYDROXYCHLOROQUINE 200 MG TAB TAKE 1 TABLET BY MOUTH TWICE A DAY 200 MG - Active prednisone 5 mg tablet take 6 tablet day 1 one, 5 tabs day 2, 4 tabs day 3, 3 tablets day 4, 2 tablets day 5, then 1 tablet day 6 - Active MYCOPHENOLATE 500 MG TABLET TAKE 3 TABLETS BY MOUTH EVERY MORNING AND 2 TABLETS EVERY EVENING - Active trazodone 50 mg tablet TAKE 2 TABLET (100MG) BY ORAL ROUTE EVERY DAY AT BEDTIME - Active amoxicillin 500 mg tablet take 4 tablet by oral route 1 hour prior to procedure - Active VITAMIN D3 (unknown strength) take 1 by Oral route every day Not Available - Active PROBIOTIC (unknown strength) take 1 Capsule by Oral route every day Not Available - Active Calcitrate 200 mg (950 mg) Tab twice daily - Active hydrocodone 5 mg-acetaminophen 325 mg tablet take 1 tablet by oral route twice daily as needed - No Longer Active Chronic pain Procedures Procedure Date Office/Outpatient Visit, Est Routine Venipuncture Assay Of Serum Albumin Assay Of Creatinine Transferase (Ast) (Sgot) Alanine Amino (Alt) (Sgpt) CReactive Protein Complete Cbc WAuto Diff Wbc Tixagev and cilgav inj Tixagev and cilgav inj Office/Outpatient Visit, Est Routine Venipuncture Assay Of Serum Albumin Assay Of Creatinine Transferase (Ast) (Sgot) Alanine Amino (Alt) (Sgpt) CReactive Protein Complete Cbc WAuto Diff Wbc Office/Outpatient Visit, Est Routine Venipuncture Assay Of Serum Albumin Assay Of Creatinine Transferase (Ast) (Sgot) Alanine Amino (Alt) (Sgpt) CReactive Protein Complete Cbc WAuto Diff Wbc Office/Outpatient Visit, Est Routine Venipuncture Assay Of Serum Albumin Assay Of Creatinine Transferase (Ast) (Sgot) Alanine Amino (Alt) (Sgpt) CReactive Protein Complete Cbc WAuto Diff Wbc Office/Outpatient Visit, Est Office/Outpatient Visit, Est Office/Outpatient Visit, Est Routine Venipuncture Assay Of Serum Albumin Assay Of Creatinine Transferase (Ast) (Sgot) Alanine Amino (Alt) (Sgpt) CReactive Protein Complete Cbc WAuto Diff Wbc Office/Outpatient Visit, Est Office/Outpatient Visit, Est Routine Venipuncture CReactive Protein Assay Of Serum Albumin Assay Of Creatinine Transferase (Ast) (Sgot) Alanine Amino (Alt) (Sgpt) Complete Cbc WAuto Diff Wbc Routine Venipuncture Complete Cbc WAuto Diff Wbc CReactive Protein Assay Of Serum Albumin Assay Of Creatinine Transferase (Ast) (Sgot) Alanine Amino (Alt) (Sgpt) Office/Outpatient Visit, Est Routine Venipuncture Complete Cbc WAuto Diff Wbc Rbc Sed Rate, Nonautomated Assay Of Serum Albumin Assay Of Creatinine Transferase (Ast) (Sgot) Alanine Amino (Alt) (Sgpt) CReactive Protein Dna Antibody, Single Strand Dna Antibody, [place] Nuclear Antigen Antibodies Office/Outpatient Visit, Est Routine Venipuncture Specimen Handling CReactive Protein Assay Of Serum Albumin Assay Of Creatinine Transferase (Ast) (Sgot) Alanine Amino (Alt) (Sgpt) Office/Outpatient Visit, Est Routine Venipuncture Complete Cbc WAuto Diff Wbc CReactive Protein Assay Of Serum Albumin Assay Of Creatinine Transferase (Ast) (Sgot) Alanine Amino (Alt) (Sgpt) Office/Outpatient Visit, Est Routine Venipuncture Complete Cbc WAuto Diff Wbc Assay Of Serum Albumin Assay Of Creatinine Transferase (Ast) (Sgot) Alanine Amino (Alt) (Sgpt) CReactive Protein Dna Antibody, Single Strand Dna Antibody, [place] Nuclear Antigen Antibodies Office/Outpatient Visit, Est Routine Venipuncture Specimen Handling Complete Cbc WAuto Diff Wbc Assay Of Serum Albumin Assay Of Creatinine Transferase (Ast) (Sgot) Alanine Amino (Alt) (Sgpt) CReactive Protein Dna Antibody, Single Strand Dna Antibody, [place] Nuclear Antigen Antibodies Office/Outpatient Visit, Est Routine Venipuncture Complete Cbc WAuto Diff Wbc Assay Of Serum Albumin Assay Of Creatinine Transferase (Ast) (Sgot) Alanine Amino (Alt) (Sgpt) CReactive Protein Dna Antibody, Single Strand Dna Antibody, [place] Nuclear Antigen Antibodies Vitamin D 25 Hydroxy Office/Outpatient Visit, Est Routine Venipuncture Complete Cbc WAuto Diff Wbc CReactive Protein Assay Of Serum Albumin Assay Of Creatinine Transferase (Ast) (Sgot) Alanine Amino (Alt) (Sgpt) Office/Outpatient Visit, Est Routine Venipuncture Complete Cbc WAuto Diff Wbc CReactive Protein Assay Of Serum Albumin Assay Of Creatinine Transferase (Ast) (Sgot) Alanine Amino (Alt) (Sgpt) Office/Outpatient Visit, Est Routine Venipuncture Complete Cbc WAuto Diff Wbc Rbc Sed Rate, Nonautomated Assay Of Serum Albumin Assay Of Creatinine Transferase (Ast) (Sgot) Alanine Amino (Alt) (Sgpt) CReactive Protein Dna Antibody, Single Strand Dna Antibody, [place] Nuclear Antigen Antibodies Office/Outpatient Visit, Est Routine Venipuncture Specimen Handling Complete Cbc WAuto Diff Wbc Assay Of Serum Albumin Assay Of Creatinine Transferase (Ast) (Sgot) Alanine Amino (Alt) (Sgpt) CReactive Protein Antinuclear Antibodies Office/Outpatient Visit, Est Routine Venipuncture Complete Cbc WAuto Diff Wbc CReactive Protein Assay Of Serum Albumin Assay Of Creatinine Transferase (Ast) (Sgot) Alanine Amino (Alt) (Sgpt) Office/Outpatient Visit, Est Routine Venipuncture Complete Cbc WAuto Diff Wbc CReactive Protein Assay Of Serum Albumin Assay Of Creatinine Transferase (Ast) (Sgot) Alanine Amino (Alt) (Sgpt) Office/Outpatient Visit, Est Routine Venipuncture Complete Cbc WAuto Diff Wbc CReactive Protein Assay Of Serum Albumin Assay Of Creatinine Transferase (Ast) (Sgot) Alanine Amino (Alt) (Sgpt) Office/Outpatient Visit, Est Routine Venipuncture Complete Cbc WAuto Diff Wbc CReactive Protein Assay Of Serum Albumin Assay Of Creatinine Transferase Ast Sgot Alanine Amino (Alt) (Sgpt) Specimen Handling Office/Outpatient Visit, Est Routine Venipuncture CReactive Protein Complete Cbc WAuto Diff Wbc Assay Of Serum Albumin Assay Of Creatinine Transferase Ast Sgot Alanine Amino Alt Sgpt Office/Outpatient Visit, Est Routine Venipuncture CReactive Protein Complete Cbc WAuto Diff Wbc Assay Of Serum Albumin Assay Of Creatinine Transferase Ast Sgot Alanine Amino Alt Sgpt Office/Outpatient Visit, Est Routine Venipuncture CReactive Protein Complete Cbc WAuto Diff Wbc Assay Of Serum Albumin Assay Of Creatinine Transferase Ast Sgot Alanine Amino Alt Sgpt Advance Directives Directive Yes / No Effective Date File Name No Information Encounters Encounter Description Practice Location Reason(s) For Visit Diagnoses Date Provider Providers Copied on Encounter [facility], [address], [place], [address], [place] tel:[phone] [facility] , No Information 3 Kal Alvarado. [facility] [address], [place], [address], [place]. tel:[phone] [facility], [address], [place], [address], [place] tel:[phone] [facility] , No Information 3 Kal Sánchez [facility] [address], [place], [address], [place]. tel:[phone] [facility], [address], [place], [address], [place] tel:[phone] [facility] , No Information 3 Kal Sánchez [facility] [address], [place], [address], [place]. tel:[phone] [facility], [address], [place], [address], [place] tel:[phone] [facility] , No Information 3 Kal Sánchez [facility] [address], [place], [address], [place]. tel:[phone] [facility], [address], [place], [address], [place] tel:[phone] [facility] , No Information 3 Kal Sánchez [facility] [address], [place], [address], [place]. tel:[phone] [facility], [address], [place], [address], [place] tel:[phone] [facility] , No Information 3 Kal Sánchez [facility] [address], [place], [address], [place]. tel:[phone] [facility], [address], [place], [address], [place] tel:[phone] [facility] , No Information 2 Kal Alvarado. [facility] [address], [place], [address], [place]. tel:[phone] Office/Outpa tient Visit, Est [facility], [address], [place], [address], [place] tel:[phone] [facility] , Follow Up of SLE (chief complaint) Fibromyalg ia syndrome (chief complaint) Chronic regional pain syndrome (chief complaint) Other forms of systemic lupus erythematosu sSjogren syndrome with other organ involvementF ibromyalgiaL ania term (current) use of opiate analgesicOth er [place] (current) drug therapy 2 Kal Alvarado. [facility] [address], [place], [address], [place]. tel:[phone] Referring Provider: Christiano Russ, [facility] [address], [place], [address]. tel:[phone] [facility], [address], [place], [address], [place] tel:[phone] [facility] , Personal history of immunosuppre ssion therapy 2 Kal Sánchez [facility] [address], [place], [address], [place]. tel:[phone] Referring Provider: Christiano Russ, [facility] [address], [place], [address]. tel:[phone] [facility], [address], [place], [address], [place] tel:[phone] [facility] , Personal history of immunosuppre ssion therapy 2 Kal Sánchez [facility] [address], [place], [address], [place]. tel:[phone] [facility], [address], [place], [address], [place] tel:[phone] [facility] , No Information 2 Kal Sánchez [facility] [address], [place], [address], [place]. tel:[phone] [facility], [address], [place], [address], [place] tel:[phone] [facility] , Personal history of immunosuppre ssion therapy 2 Kal Sánchez [facility] [address], [place], [address], [place]. tel:[phone] Office/Outpa tient Visit, Est [facility], [address], [place], [address], [place] tel:[phone] [facility] , Follow Up of SLE (chief complaint) Fibromyalg ia syndrome (chief complaint) Chronic regional pain syndrome (chief complaint) Other forms of systemic lupus erythematosu sSjogren syndrome with other organ involvementF ibromyalgiaB ilateral photophobiaO ther ceo [place] (current) drug therapyLong term (current) use of opiate analgesic 2 Kal Sánchez [facility] [address], [place], [address], [place]. tel:[phone] Referring Provider: Christiano Russ, [facility] [address], [place], [address]. tel:[phone] Office/Outpa tient Visit, Est [facility], [address], [place], [address], [place] tel:[phone] [facility] , Follow Up of SLE (chief complaint) Fibromyalg ia syndrome (chief complaint) Chronic regional pain syndrome (chief complaint) Other forms of systemic lupus erythematosu sSjogren syndrome with other organ involvementF ibromyalgiaC omplex regional pain syndrome I of right lower limbBilatera l photophobiaO ther ceo [place] (current) drug therapyLong term (current) use of opiate analgesic 1 Kal Alvarado. [facility] [address], [place], [address], [place]. tel:[phone] Referring Provider: Christiano Russ, [facility] [address], [place], [address]. tel:[phone] Office/Outpa tient Visit, Est [facility], [address], [place], [address], [place] tel:[phone] [facility] , Follow Up of SLE (chief complaint) Other forms of systemic lupus erythematosu sSicca syndrome with other organ involvementC omplex regional pain syndrome I of right lower limbOther [place]o [place] (current) drug therapyLong term (current) use of opiate analgesic 1 Kal Alvarado. [facility] [address], [place], [address], [place]. tel:[phone] Referring Provider: Christiano Russ, [facility] [address], [place], [address]. tel:[phone] Office/Outpa tient Visit, Est [facility], [address], [place], [address], [place] tel:[phone] Telehealth Follow Up of SLE (chief complaint) Other forms of systemic lupus erythematosu sOther [place] (current) drug therapyLong term (current) use of opiate analgesic 0 Kal Alvarado. [facility] [address], [place], [address], [place]. tel:[phone] Referring Provider: Christiano Russ, [facility] [address], [place], [address]. tel:[phone] Office/Outpa tient Visit, Est [facility], [address], [place], [address], [place] tel:[phone] Telehealth Follow Up of SLE (chief complaint) Other forms of systemic lupus erythematosu sCervicalgia Complex regional pain syndrome I of right lower limbOther senior living (current) drug therapy 0 Kal Alvarado. [facility] [address], [place], [address], [place]. tel:[phone] Referring Provider: Christiano Russ, [facility] [address], [place], [address]. tel:[phone] Office/Outpa tient Visit, Est [facility], [address], [place], [address], [place] tel:[phone] [facility] , Follow Up of SLE (chief complaint) Other forms of systemic lupus erythematosu sComplex regional pain syndrome I of right lower limbCervical giaPain in limbOther [place] (current) drug therapy 9 Kal Alvarado. [facility] [address], [place], [address], [place]. tel:[phone] Referring Provider: Christiano Russ, [facility] [address], [place], [address]. tel:[phone] Office/Outpa tient Visit, Est [facility], [address], [place], [address], [place] tel:[phone] [facility] , Follow Up of SLE (chief complaint) Other forms of systemic lupus erythematosu sCervicalgia Complex regional pain syndrome I of right lower limbOther [place]o [place] (current) drug therapy Oct- 9 Kal Alvarado. [facility] [address], [place], [address], [place]. tel:[phone] Referring Provider: Christiano Russ, [facility] [address], [place], [address]. tel:[phone] Office/Outpa tient Visit, Est [facility], [address], [place], [address], [place] tel:[phone] [facility] , SLE (chief complaint) Other forms of systemic lupus erythematosu sCervicalgia Low back painComplex regional pain syndrome I of right lower limbOther senior living (current) drug therapyLong term (current) use of opiate analgesic Sep-2 8 Kal Alvarado. [facility] [address], [place], [address], [place]. tel:[phone] Referring Provider: Christiano Russ, [facility] [address], [place], [address]. tel:[phone] [facility], [address], [place], [address], [place] tel:[phone] [facility] , No Information 8 Kal Sánchez [facility] [address], [place], [address], [place]. tel:[phone] Referring Provider: Christiano Russ, [facility] [address], [place], [address]. tel:[phone] Office/Outpa tient Visit, Est [facility], [address], [place], [address], [place] tel:[phone] [facility] , Follow Up of SLE (chief complaint) Systemic lupus erythematosu sComplex regional pain syndrome I of right lower limbFibromya lgiaOther ceo [place] (current) drug therapy 8 Kal Alvarado. [facility] [address], [place], [address], [place]. tel:[phone] Referring Provider: Christiano Russ, [facility] [address], [place], [address]. tel:[phone] Office/Outpa tient Visit, Est [facility], [address], [place], [address], [place] tel:[phone] [facility] , Follow Up of SLE (chief complaint) Systemic lupus erythematosu sSjogren's syndromeLow back painCervical giaComplex regional pain syndrome I of right lower limbLong term (current) use of opiate analgesic 7 Kal Alvarado. [facility] [address], [place], [address], [place]. tel:[phone] Referring Provider: Christiano Russ, [facility] [address], [place], [address]. tel:[phone] Office/Outpa tient Visit, Est [facility], [address], [place], [address], [place] tel:[phone] [facility] , Follow Up of SLE (chief complaint) Systemic lupus erythematosu sAcute recurrent parotitisSjo gren's syndromeOthe r ceo [place] (current) drug therapy 7 Kal Alvarado. [facility] [address], [place], [address], [place]. tel:[phone] Referring Provider: Christiano Russ, [facility] [address], [place], [address]. tel:[phone] Office/Outpa tient Visit, Est [facility], [address], [place], [address], [place] tel:[phone] [facility] , Follow Up of SLE (chief complaint) Systemic lupus erythematosu sComplex regional pain syndrome I of right lower limbOther senior living (current) drug therapy 7 Kal Alvarado. [facility] [address], [place], [address], [place]. tel:[phone] Referring Provider: Christiano Russ, [facility] [address], [place], [address]. tel:[phone] Office/Outpa tient Visit, Est [facility], [address], [place], [address], [place] tel:[phone] [facility] , Follow Up of SLE (chief complaint) Systemic lupus erythematosu sSjogren's syndromeDizz inessOther ceo [place] (current) drug therapy 6 Kal Alvarado. [facility] [address], [place], [address], [place]. tel:[phone] Referring Provider: Christiano Russ, [facility] [address], [place], [address]. tel:[phone] Office/Outpa tient Visit, Est [facility], [address], [place], [address], [place] tel:[phone] [facility] , Follow Up of SLE (chief complaint) Systemic lupus erythematosu sSjogren's syndromeChro maddi parotitisUpp er respiratory infectionOth er senior living (current) drug therapy 6 Kal Alvarado. [facility] [address], [place], [address], [place]. tel:[phone] Referring Provider: Christiano Russ, [facility] [address], [place], [address]. tel:[phone] Office/Outpa tient Visit, Est [facility], [address], [place], [address], [place] tel:[phone] [facility] , Follow Up of SLE (chief complaint) Systemic lupus erythematosu sLong term (current) use of opiate analgesicOth er senior living (current) drug therapy 6 Kal Alvarado. [facility] [address], [place], [address], [place]. tel:[phone] Referring Provider: Christiano Russ, [facility] [address], [place], [address]. tel:[phone] Office/Outpa tient Visit, Est [facility], [address], [place], [address], [place] tel:[phone] [facility] , Follow Up of SLE (chief complaint) Systemic lupus erythematosu sEffect of light, sequelaPain in right footOther senior living (current) drug therapy 5 Kal Alvarado. [facility] [address], [place], [address], [place]. tel:[phone] Referring Provider: Christiano Russ, [facility] [address], [place], [address]. tel:[phone] Office/Outpa tient Visit, Est [facility], [address], [place], [address], [place] tel:[phone] [facility] , Follow Up of SLE (chief complaint) Systemic lupus erythematosu sFatigue / MalaiseThera peutic Drug Monitoring Kal Alvarado. [facility] [address], [place], [address], [place]. tel:[phone] Referring Provider: Christiano Russ, [facility] [address], [place], [address]. tel:[phone] Office/Outpa tient Visit, Est [facility], [address], [place], [address], [place] tel:[phone] [facility] , Follow Up of SLE (chief complaint) Systemic lupus erythematosu sCervicalgia Therapeutic Drug Monitoring 5 Kal Alvarado. [facility] [address], [place], [address], [place]. tel:[phone] Referring Provider: Christiano Russ, [facility] [address], [place], [address]. tel:[phone] Office/Outpa tient Visit, Est [facility], [address], [place], [address], [place] tel:[phone] [facility] , SLE (chief complaint) Systemic lupus erythematosu sCervicalgia Therapeutic Drug Monitoring 4 Kal Alvarado. [facility] [address], [place], [address], [place]. tel:[phone] Referring Provider: Christiano Russ, [facility] [address], [place], [address]. tel:[phone] Office/Outpa tient Visit, Est [facility], [address], [place], [address], [place] tel:[phone] [facility] , SLE (chief complaint) Systemic lupus erythematosu sMyalgia and myositis, unspecifiedT herapeutic Drug Monitoring 4 Kal Alvarado. [facility] [address], [place], [address], [place]. tel:[phone] Referring Provider: Christiano Russ, [facility] [address], [place], [address]. tel:[phone] Office/Outpa tient Visit, [facility], [address], [place], [address], [place] tel:[phone] [facility] , SLE (chief complaint) Systemic lupus erythematosu sDisorders of bursae and tendons in shoulder region, unspecifiedF atigue / MalaiseThera peutic Drug Monitoring 4 Kal Alvarado. [facility] [address], [place], [address], [place]. tel:[phone] Referring Provider: Christiano Russ, [facility] [address], [place], [address]. tel:[phone] Office/Outpa tient Visit, [facility], [address], [place], [address], [place] tel:[phone] [facility] , SLE (chief complaint) Systemic lupus erythematosu sCramp of limbChronic lymphadeniti sRash and other nonspecific skin eruptionTher apeutic Drug Monitoring 3 Kal Alvarado. [facility] [address], [place], [address], [place]. tel:[phone] Referring Provider: Christiano Russ, [facility] [address], [place], [address]. tel:[phone] Office/Outpa tient Visit, [facility], [address], [place], [address], [place] tel:[phone] [facility] , SLE (chief complaint) Systemic lupus erythematosu sCervicalgia Abdominal pain, left lower quadrantTher apeutic Drug Monitoring 3 Kal Alvardao. [facility] [address], [place], [address], [place]. tel:[phone] Referring Provider: Christiano Russ, [facility] [address], [place], [address]. tel:[phone] Office/Outpa tient Visit, [facility], [address], [place], [address], [place] tel:[phone] [facility] , SLE (chief complaint) Systemic lupus erythematosu sCervicalgia Therapeutic Drug Monitoring 3 Kal Alvarado. [facility] [address], [place], [address], [place]. tel:[phone] Referring Provider: Christiano Russ, [facility] [address], [place], [address]. tel:[phone] [facility], [address], [place], [address], [place] tel:[phone] [facility] , No Information 2 Kal Alvarado. [facility] [address], [place], [address], [place]. tel:[phone] Office/Outpa tient Visit, [facility], [address], [place], [address], [place] tel:[phone] [facility] , SLE (chief complaint) Systemic lupus erythematosu sCervicalgia Therapeutic Drug Monitoring 2 Kal Alvarado. [facility] [address], [place], [address], [place]. tel:[phone] Referring Provider: Christiano Russ, [facility] [address], [place], [address]. tel:[phone] Family History Family Member Type Diagnosis Age At Onset Mother Problem (finding) osteoporosis Paternal grandmother Problem (finding) Pulmonary embol us Maternal grandmother Problem (finding) osteoporosis Immunizations Vaccine Date Status Comments COVID-19 Moderna administered Source: Ot er Provider COVID-19 Gagan [employer] Gagan administered S ource: Other Provider Payers Payer name Insurance type Covered republican ID Authoriza tidorian(s) [facility] Medicare Advantage CI [id number] Social History Type Description Quantity Date Captured Comments Sex Female Smoking Status No Information Chief Complaint And Reason For Visit No Information Reason For Referral Reason For Referral No Information Plan Of Treatment Date Type Action Status Appointment Nithya Yost BOOKED History Of Present Illness Encounter Date Complaint History Of Prese nt Illness Follow Up of SLE Fibromyalgia syndrome Chronic regional pain syndrome Follow Up of SLE Fibromyalgia syndrome Chronic regional pain syndrome Follow Up of SLE Fibromyalgia syndrome Chronic regional pain syndrome Follow Up of SLE Follow Up of SLE Follow Up of SLE Follow Up of SLE Follow Up of SLE SLE Follow Up of SLE Follow Up of SLE Follow Up of SLE Follow Up of SLE Follow Up of SLE Follow Up of SLE Follow Up of SLE Follow Up of SLE Follow Up of SLE Follow Up of SLE Functional Status Date Functional Assessmen t No Information Instructions Date Instruction Additional Infor juni If anything, she is doing better today compared to the last time I saw her on 06/20/2021. I did not recommend any change in the CellCept or Plaquenil. Related to Other forms of systemic lupus erythematosus She will have routin e laboratories today for monitoring medications and disease. Related to Other [place] (current) drug therapy The symptoms are at least stable if not a bit improved compared to the last time I saw her. Again, no change in treatment was recommended. Related to Sjogren syndrome with other organ involvement She still has some g eneralized tenderness consistent with fibromyalgia. Overall, however, this has been well controlled for many years with the help of the analgesic medication and medication for sleep. Related to Fibromyalgia I will continue to m onitor her use of hydrocodone with the help of the PDMP. Related to correction (current) use of opiate analgesic If anything, she is doing a bit better today compared to the last time I saw her on 06/20/2021. I did not recommend any change in the CellCept or Plaquenil. Related to Other forms of systemic lupus erythematosus She will have routin e laboratories today for monitoring medications and disease. Related to Other senior living (current) drug therapy I will continue to m onitor her use of hydrocodone with the help of the PDMP. 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 Again, no change in treatment was recommended. Related to Sjogren syndrome with other organ involvement She still has some g eneralized tenderness consistent with fibromyalgia. Overall, however, this has been well controlled for many years with the help of the analgesic medication and medication for sleep. Related to Fibromyalgia At this point, there does not seem to be much more that can be done for this issue. Related to Bilateral photophobia I recommended follow -up with her public health professor regarding this issue. Related to Bilateral photophobia I will continue to m onitor her use of hydrocodone with the help of the PDMP. 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 Related to Other senior living (current) drug therapy She still has some g eneralized tenderness consistent with fibromyalgia. Overall, however, this has been well controlled for many years with the help of the analgesic medication and medication for sleep. Related to Fibromyalgia This is an ongoing i ssue with significant pain still in the right foot. She would like to see an orthopedist to see if there is anything mechanical that is contributing to her pain. I gave her the names of good foot surgeons. Related to Complex regional pain syndrome I of right lower limb She is having increa sed sicca symptoms with the colder weather as might be expected. I reminded her of the importance of doing artificial tears for her dry eyes at least every 2 hours during the day and using a viscous lubricant for the eyes at night. Related to Sjogren syndrome with other organ involvement Although she is cert ainly not asymptomatic, she is definitely doing better today compared to the last time I saw her. I did not recommend any change in the CellCept or Plaquenil. Related to Other forms of systemic lupus erythematosus She will have routin e laboratories today for monitoring medications and disease. Related to Other senior living (current) drug therapy Her use of hydrocodo ne has remained stable over the years. I will continue to monitor this with the help of the PDMP. 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 She will continue topical treatments for this. She will follow-up with her public health professor if symptoms do not settle down. Related to Sicca syndrome with other organ involvement She has seen a neuro logist for this in the past. The course of prednisone may also help with this. Related to Complex regional pain syndrome I of right lower limb She seems to be expe riencing a generalized flare of her lupus currently. We will proceed with a burst and taper of prednisone. Her other medications will remain unchanged. Related to Other forms of systemic lupus erythematosus We continue to monit or her use of hydrocodone with help of the PDMP. Related to correction (current) use of opiate analgesic Although not asympto matic, she is doing reasonably well with her SLE currently and I did not recommend any change in treatment. Related to Other forms of systemic lupus erythematosus She will have routin e laboratories today for monitoring medications and disease. These will be done at her primary clinic. Related to Other senior living (current) drug therapy Her right foot pain is surprisingly improved compared to the last time I saw her. The reason for this is unclear. It's possible that it is partly related to the low back issues that have been treated recently. Related to Complex regional pain syndrome I of right lower limb She will have routin e laboratories for monitoring medications and disease done at her primary clinic when she goes in for her INR next week. Orders have been sent. Related to Other senior living (current) drug therapy She may be doing a b it worse with her SLE overall compared to 6 months ago but there has not been a major flare. I did not recommend any change in her doses of CellCept or Plaquenil. Related to Other forms of systemic lupus erythematosus I will provide a pre scription for the prednisone equivalent of a Medrol Dosepak for her neck pain. This has worked well for her in the past with similar flares. Related to Cervicalgia The cause of her kristen ateral leg pain is not completely clear to me. This does not seem to be a joint issue. Certainly this is not deep venous thrombosis. My sense is that it is a neurologic issue. She was already planning on followup with a neurologist regarding her complex regional pain syndrome and I recommended that she consider having this issue evaluated by a neurologist also. She did point out however, that the pain is gradually improving and she is going to keep an eye and this for a while before actually seeing a neurologist about it. Related to Pain in limb She will have routin e laboratories today for monitoring medications and disease. Related to Other senior living (current) drug therapy The symptoms in her right foot also seemed to be a bit improved today compared to the last time I saw her. I'm not sure how this relates to her current bilateral leg pain. Related to Complex regional pain syndrome I of right lower limb Her neck pain is ирина thly improved today compared to the last time I saw her. Apparently this very substantially however. She did not tolerate tizanidine. Related to Cervicalgia I actually think her lupus is stable. I did not recommend any change in the CellCept or Plaquenil. Related to Other forms of systemic lupus erythematosus This is her main iss ue today. The main problem seems to be muscle spasm with contralateral pain with rotation of the neck. She's had episodes of neck pain in the past. She's had physical therapy in the past without much benefit. She has been on muscle relaxants and these tend to cause grogginess during the day. Anti-inflammatory medicines have not been helpful in the past. She has never tried tizanidine???in general this tends to be less sedating than some of the other muscle relaxants. I'm going to have her try that at night. She also has followup regarding her complex regional pain syndrome with her neurologist soon. I suggested she discuss possible injections of her neck with her neurologist. Related to Cervicalgia She has ongoing pain in the right foot. As noted above, she will be seeing her neurologist regarding this issue. Related to Complex regional pain syndrome I of right lower limb She will have routin e laboratories today for monitoring medications and disease. Related to Other senior living (current) drug therapy Overall she seems to be doing reasonably well with her lupus. I did not recommend any change in the CellCept or Plaquenil. Related to Other forms of systemic lupus erythematosus She will have routin e laboratories today for monitoring medications and disease. Related to Other senior living (current) drug therapy She uses the hydrocodone infrequ ently. 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 She feels better when she is on even a low dose of prednisone. I agreed to a trial of prednisone 2.5 milligrams daily. Related to Cervicalgia See discussion above. Related to Low back pain The right foot pain has stabilized. Again, even this seems to respond somewhat to the prednisone. Related to Complex regional pain syndrome I of right lower limb Although she is not asymptomatic, her SLE is at least stable. She will remain on her same doses of CellCept and Plaquenil. Related to Other forms of systemic lupus erythematosus She will have routin e laboratories today for monitoring medications and disease. Related to Other [place] (current) drug therapy The right foot sympt oms seem to have plateaued. She she has had about 80% improvement from the peak of symptoms. Again, no additional treatment was recommended. Related to Complex regional pain syndrome I of right lower limb Her symptoms of SLE are stable. She is not symptom-free but is doing okay. I did not recommend any change in the CellCept or Plaquenil. I would hope that we might be able to decrease her CellCept dose eventually. She will continue topical cares for her secondary Sjogren's syndrome. I should note that she is not using Restasis as regularly anymore due to cost. Related to Systemic lupus erythematosus The symptoms are stable. Related to Fibromyalgia There has been slow improvement in the pain in the right foot. She is actually satisfied with how she is doing with this right now. Related to Complex regional pain syndrome I of right lower limb She remains on a john ited dose of hydrocodone with acetaminophen. There have been no obvious side effects of that. Related to correction (current) use of opiate analgesic Her lupus is overall stable on her current regimen. I did not recommend any change in treatment. Related to Systemic lupus erythematosus Her Sjogren's syndro me also is stable. She will continue Restasis and other topical treatments for the dry eyes and dry mouth. Related to Sjogren's syndrome She's had a recent f lare of low back pain. There has been little improvement over 3 weeks. I encouraged her to see her spine surgeon regarding this. Related to Low back pain Happily, she is doin g very well with her neck pain right now. Related to Cervicalgia She will have routin e laboratories today for monitoring medications and disease. Related to Other [place] (current) drug therapy She has secondary Sj ogren's syndrome. She has tried and failed both pilocarpine and Evoxac. The Evoxac caused excessive sweating. Pilocarpine also cause unacceptable side effects. Related to Sjogren's syndrome Other than the episo de of pericarditis, her lupus is stable. This does not mean that she is asymptomatic but at least her symptoms have not progressed substantially since I last saw her. I did not recommend a change in her treatment. Related to Systemic lupus erythematosus She had a relatively recent episode of acute parotitis involving the left parotid gland. She's had previous episodes but none as severe as this one. She did finally find any bilingual research interviewer was able to help her clear that that. I'm not sure if the antibiotics that she had received also played a role in that improvement. 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 Related to Other senior living (current) drug therapy Clinically, her lupu s appears stable. I did not recommend any change in her medications. Related to Systemic lupus erythematosus We discussed other t reatments for her complex regional pain syndrome. Ultimately, agreed that she should proceed with the nerve block for treatment of this. Related to Complex regional pain syndrome I of right lower limb She certainly does h ave symptoms of Sjogren's syndrome which is secondary to her SLE. I recommended that she at least try fish oil for treatment of the dry eyes. She will continue Biotene products and her other current conservative treatments. She is already on immunosuppressive medications that I would use in the setting of Sjogren's syndrome. Related to Sjogren's syndrome She will have routin e laboratories today for monitoring medications and disease. Related to Other [place] (current) drug therapy This is being evalua augie and treated through her neurologist. Related to Dizziness It's difficult to sa y whether the above symptoms are directly related to her lupus or not. Recent laboratories have not been consistent with a generalized flare of her condition. I did not recommend any change in the CellCept or Plaquenil. Related to Systemic lupus erythematosus She will have routin e laboratories today for monitoring medications and disease. Related to Other senior living (current) drug therapy She has a persistent upper respiratory infection suggestive of sinusitis. She will be seeing an mfts alone. Likely the Sjogren's syndrome is playing some role in this. The CellCept may also be contributing to her difficulty clearing this. If this continues to be a problem, I likely will check immunoglobulin levels to make sure she does not have immunoglobulin deficiency. Related to Upper respiratory infection We discussed this co ndition and and its relationship to her SLE and probable newly diagnosed secondary Sjogren's syndrome. She is aware of the potential serious nature of this. She will call here or her primary clinic if she has a significant recurrence of pain in the parotid area. Related to Chronic parotitis I think she has emily guzman secondary Sjogren's syndrome. This would be consistent with the symptoms of dry eyes, dry mouth, and recurrent parotitis by her description. I recommend a trial of Evoxac 30 milligrams 3 times a day. She is already using artificial tears. Related to Sjogren's syndrome She has somewhat aty pical SLE. She's been having more joint pain lately. She actually looks good on exam today. I did not recommend any change in her medications which still include hydrocodone that she can use for the joint pain if necessary. Related to Systemic lupus erythematosus Right now, she is do ing very well with her lupus. I did not recommend any change in treatment. Related to Systemic lupus erythematosus She will have routin e laboratories today for monitoring medications and disease. Her last Plaquenil eye exam was last April. 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 I recommended consideration of a second opinion with a different orthopedic foot surgeon to start out with. I suggested [facility] orthopedics. Related to Pain in right foot She will have routin e laboratories today for monitoring medications and disease. Related to Other [place] (current) drug therapy She has never had cl assic symptoms of lupus. She has never been symptom-free. With those things being said, overall, she seems to be doing reasonably well right now on her current regimen. I did not recommend any change in her medications. Related to Systemic lupus erythematosus I agree that the [place] tosensitivity sounds like a migraine equivalent. I recommended that she consider evaluation by a neuro-public health professor if this recently initiated trial of a migraine medication does not help her. Related to Effect of light, sequela She will have routin e laboratories today for monitoring medications and disease. Related to Therapeutic Drug Monitoring The fatigue certainl y could be related at least partly to her underlying disease but I also wonder if her medications are playing some role. Unfortunately, I can't see making any major changes in her medications right now. She remains on both trazodone and zolpidem for sleep. Related to Fatigue / Malaise Overall, her symptom s of lupus seem to be relatively stable on her current regimen. I did not recommend any change in treatment. Related to Systemic lupus erythematosus Although she is not symptom-free, there have been no severe uncontrolled flares of her condition since I last saw her. I did not recommend any change in treatment. Related to Systemic lupus erythematosus She will have routin e laboratories today for monitoring medications and disease. Related to Therapeutic Drug Monitoring Her neck pain is imp roved. Again, I did not recommend any change in treatment. Related to Cervicalgia Assessments Type Assessment Date No Information Patient Care Teams Name Effective Dates (start - stop) Status Members No Information
--- NOTE | 2023-01-15 08:15 | CRLHL7_ITS ---
For Patients: As a result of the Century Cures Act, medical imaging exams and procedure reports are released immediately into your electronic medical record. You may view this report before your referring provider. If you have questions, please contact your health care provider. HISTORY: History of mass removal with now recurrent mass in same area. TECHNIQUE: Routine foot protocol including use of 15 mL of dotarem. FINDINGS: Skin marker is seen along the plantar aspect of the mid metatarsal region. In this vicinity I cannot identify any focal mass or focal signal abnormality. No abnormal enhancement is seen in this region. There is mild plantar spurring of the calcaneus in the region of the plantar fascia origin with slight thickening and enhancement within the fascia consistent with fasciitis. For example see images 16-20 of series 12. The extensor and flexor tendons are intact. No findings for ganglion cyst. No bony abnormality is noted. IMPRESSION: 1. Negative study for mass lesion in region of the skin marker. 2. Evidence for mild plantar fasciitis at the calcaneal origin. Dictated by Anthony Taylor MD @ 01/15/2023 2:03:40 PM (Electronically Signed)
== END 2023-01-15 08:04 | disposition home or self-care (01) ==
LOC: MRI 08:04
PROVIDERS: PCP Internal Medicine; Visit Provider Internal Medicine
DX: R22.41 Localized swelling, mass and lump, right lower limb (principal)
CPT/HCPCS: 73720; A9575

== ENCOUNTER 2023-04-10 08:01 | Outpatient (CLI) | payer MEDICARE, SELFPAY ==
--- OUTSIDE RECORDS SUMMARY | 2023-04-10 08:04 | XMS_ITS | Continuity of Care Document ---
Author Name Unknown Organization [facility] [address] [address] [place] [address] Phone Care Team Providers Care Java Lead Name Role Phone Christiano Bowden MD Unavailable Unavailable Allergies, Adverse Reactions, Alerts Substance Reaction Status Criticality No Known Allergies Active No Inform ation Medications Medication Instructions Dosage Effective Dates (start - stop) Status Comments zolpidem 10 mg tablet TAKE 1 TABLET BY MOUTH AT BEDTIME NEEDED FOR INSOMNIA - Active hydrocodone 5 mg-acetaminophen 325 mg tablet take 1 tablet by oral route twice daily as needed - Active Chronic pain mycophenolate mofetil 500 mg tablet TAKE 3 TABLETS BY MOUTH EVERY MORNING AND 2 TABLETS EVERY EVENING - Active HYDROXYCHLOROQUINE 200 MG TAB TAKE 1 TABLET BY MOUTH TWICE A DAY 200 MG - Active trazodone 50 mg tablet TAKE [...] (950 mg) Tab twice daily - Active Procedures Procedure Date Office/Outpatient Visit, Est Routine [...] Protein Dna Antibody, Single Strand Dna Antibody, Eyak Nuclear Antigen Antibodies Office/Outpatient Visit, Est Routine [...] Protein Dna Antibody, Single Strand Dna Antibody, Eyak Nuclear Antigen Antibodies Office/Outpatient Visit, Est Routine Venipuncture Specimen Handling Complete Cbc WAuto Diff Wbc Assay Of Serum Albumin Assay Of Creatinine Transferase (Ast) (Sgot) Alanine Amino (Alt) (Sgpt) CReactive Protein Dna Antibody, Single Strand Dna Antibody, Eyak Nuclear Antigen Antibodies Office/Outpatient Visit, Est Routine Venipuncture Complete Cbc WAuto Diff Wbc Assay Of Serum Albumin Assay Of Creatinine Transferase (Ast) (Sgot) Alanine Amino (Alt) (Sgpt) CReactive Protein Dna Antibody, Single Strand Dna Antibody, Eyak Nuclear Antigen Antibodies Vitamin D 25 Hydroxy [...] Protein Dna Antibody, Single Strand Dna Antibody, Eyak Nuclear Antigen Antibodies Office/Outpatient Visit, Est Routine [...] [facility], [address], [place], [address], [place] tel:[phone] [facility] , No Information 3 Kal Alvarado. [facility] [address], [place], [address], [place]. tel:[phone] [facility], [address], [place], [address], [place] tel:[phone] [facility] , No Information 3 Skemp Everardo. [facility] [address], [place], [address], [place]. tel:[phone] [facility], [address], [place], [address], [place] tel:[phone] [facility] , No Information 3 Kal Alvarado. [facility] [address], [place], [address], [place]. tel:[phone] Office/Outpa tient Visit, Est [facility], [address], [place], [address], [place] tel:[phone] [facility] , Follow Up of SLE (chief complaint) Fibromyalg ia syndrome (chief complaint) Chronic regional pain syndrome (chief complaint) Other forms of systemic lupus erythematosu sSjogren syndrome with other organ involvementF ibromyalgiaL ania term (current) use of opiate analgesicOth er termite control representative (current) drug therapyCompl ex regional pain syndrome I of right lower limb 3 Kal Alvarado. [facility] [address], [place], [address], [place]. tel:[phone] Referring Provider: Christiano Russ, [facility] [address], [place], [address]. tel:[phone] [facility], [address], [place], [address], [place] tel:[phone] [facility] , No Information 3 Kal Alvarado. [facility] [address], [place], [address], [place]. tel:[phone] [facility], [address], [place], [address], [place] tel:[phone] [facility] , No Information 2 Kal Alvarado. [facility] [address], [place], [address], [place]. tel:[phone] Office/Outpa tient Visit, Est [facility], [address], [place], [address], [place] tel:[phone] [facility] , Follow Up of SLE (chief complaint) Fibromyalg ia syndrome (chief complaint) Chronic regional pain syndrome (chief complaint) Other forms of systemic lupus erythematosu sSjogren syndrome with other organ involvementF ibromyalgiaL ania term (current) use of opiate analgesicOth er fci (current) drug therapy 2 Kal Alvarado. [facility] [address], [place], [address], [place]. tel:[phone] Referring Provider: Christiano Russ, [facility] [address], [place], [address]. tel:[phone] [facility], [address], [place], [address], [place] tel:[phone] [facility] , Personal history of immunosuppre ssion therapy 2 Kal Alvarado. [facility] [address], [place], [address], [place]. tel:[phone] Referring Provider: Christiano Russ, [facility] [address], [place], [address]. tel:[phone] [facility], [address], [place], [address], [place] tel:[phone] [facility] , Personal history of immunosuppre ssion therapy 2 Kal Sánchez [facility] [address], [place], [address], [place]. tel:[phone] [facility], [address], [place], [address], [place] tel:[phone] [facility] , No Information 2 Kal Alvarado. [facility] [address], [place], [address], [place]. tel:[phone] [facility], [address], [place], [address], [place] tel:[phone] [facility] , Personal history of immunosuppre ssion therapy 2 Kal Sánchez [facility] [address], [place], [address], [place]. tel:[phone] Office/Outpa tient Visit, Est [facility], [address], [place], [address], [place] tel:[phone] [facility] , Follow Up of SLE (chief complaint) Fibromyalg ia syndrome (chief complaint) Chronic regional pain syndrome (chief complaint) Other forms of systemic lupus erythematosu sSjogren syndrome with other organ involvementF ibromyalgiaB ilateral photophobiaO ther termite control representative (current) drug therapyLong term (current) use of opiate analgesic 2 Kal Sánchez [facility] [address], [place], [address], [place]. tel:[phone] Referring Provider: Christiano Russ, [facility] [address], [place], [address]. tel:[phone] Office/Outpa tient Visit, Est [facility], [address], [place], [address], [place] tel:[phone] [facility] , Follow Up of SLE (chief complaint) Fibromyalg ia syndrome (chief complaint) Chronic regional pain syndrome (chief complaint) Other forms of systemic lupus erythematosu sSjogren syndrome with other organ involvementF ibromyalgiaC omplex regional pain syndrome I of right lower limbBilatera l photophobiaO ther fci (current) drug therapyLong term (current) use of opiate analgesic 1 Kal Alvarado. [facility] [address], [place], [address], [place]. tel:[phone] Referring Provider: Christiano Russ, [facility] [address], [place], [address]. tel:[phone] Office/Outpa tient Visit, Est [facility], [address], [place], [address], [place] tel:[phone] [facility] , Follow Up of SLE (chief complaint) Other forms of systemic lupus erythematosu sSicca syndrome with other organ involvementC omplex regional pain syndrome I of right lower limbOther fci (current) drug therapyLong term (current) use of opiate analgesic 1 Kal Alvarado. [facility] [address], [place], [address], [place]. tel:[phone] Referring Provider: Christiano Russ, [facility] [address], [place], [address]. tel:[phone] Office/Outpa tient Visit, Est [facility], [address], [place], [address], [place] tel:[phone] Telehealth Follow Up of SLE (chief complaint) Other forms of systemic lupus erythematosu sOther fci (current) drug therapyLong term (current) use of opiate analgesic 0 Kal Alvarado. [facility] [address], [place], [address], [place]. tel:[phone] Referring Provider: Christiano Russ, [facility] [address], [place], [address]. tel:[phone] Office/Outpa tient Visit, Est [facility], [address], [place], [address], [place] tel:[phone] Telehealth Follow Up of SLE (chief complaint) Other forms of systemic lupus erythematosu sCervicalgia Complex regional pain syndrome I of right lower limbOther fci (current) drug therapy 0 Kal Sánchez [facility] [address], [place], [address], [place]. tel:[phone] Referring Provider: Christiano Russ, [facility] [address], [place], [address]. tel:[phone] Office/Outpa tient Visit, Est [facility], [address], [place], [address], [place] tel:[phone] [facility] , Follow Up of SLE (chief complaint) Other forms of systemic lupus erythematosu sComplex regional pain syndrome I of right lower limbCervical giaPain in limbOther fci (current) drug therapy 9 Kal Alvarado. [facility] [address], [place], [address], [place]. tel:[phone] Referring Provider: Christiano Russ, [facility] [address], [place], [address]. tel:[phone] Office/Outpa tient Visit, Est [facility], [address], [place], [address], [place] tel:[phone] [facility] , Follow Up of SLE (chief complaint) Other forms of systemic lupus erythematosu sCervicalgia Complex regional pain syndrome I of right lower limbOther termite control representative (current) drug therapy Apr- 9 Kal Alvarado. [facility] [address], [place], [address], [place]. tel:[phone] Referring Provider: Christiano Russ, [facility] [address], [place], [address]. tel:[phone] Office/Outpa tient Visit, Est [facility], [address], [place], [address], [place] tel:[phone] [facility] , SLE (chief complaint) Other forms of systemic lupus erythematosu sCervicalgia Low back painComplex regional pain syndrome I of right lower limbOther termite control representative (current) drug therapyLong term (current) use of opiate analgesic Sep-2 8 Kal Sánchez [facility] [address], [place], [address], [place]. tel:[phone] Referring Provider: Christiano Russ, [facility] [address], [place], [address]. tel:[phone] [facility], [address], [place], [address], [place] tel:[phone] [facility] , No Information 0 8 Bowden Christiano. [facility] [address], [place], [address], [place]. tel:[phone] Referring Provider: Christiano Russ, [facility] [address], [place], [address]. tel:[phone] Office/Outpa tient Visit, Est [facility], [address], [place], [address], [place] tel:[phone] [facility] , Follow Up of SLE (chief complaint) Systemic lupus erythematosu sComplex regional pain syndrome I of right lower limbFibromya lgiaOther termite control representative (current) drug therapy 8 Kal Alvarado. [facility] [address], [place], [address], [place]. tel:[phone] Referring Provider: Christiano Russ, [facility] [address], [place], [address]. tel:[phone] Office/Outpa tient Visit, Est [facility], [address], [place], [address], [place] tel:[phone] [facility] , Follow Up of SLE (chief complaint) Systemic lupus erythematosu sSjogren's syndromeLow back painCervical giaComplex regional pain syndrome I of right lower limbLong term (current) use of opiate analgesic Apr-0 7 Kal Alvarado. [facility] [address], [place], [address], [place]. tel:[phone] Referring Provider: Christiano Russ, [facility] [address], [place], [address]. tel:[phone] Office/Outpa tient Visit, Est [facility], [address], [place], [address], [place] tel:[phone] [facility] , Follow Up of SLE (chief complaint) Systemic lupus erythematosu sAcute recurrent parotitisSjo gren's syndromeOthe r fci (current) drug therapy Dec- 7 Kal Alvarado. [facility] [address], [place], [address], [place]. tel:[phone] Referring Provider: Christiano Russ, [facility] [address], [place], [address]. tel:[phone] Office/Outpa tient Visit, Est [facility], [address], [place], [address], [place] tel:[phone] [facility] , Follow Up of SLE (chief complaint) Systemic lupus erythematosu sComplex regional pain syndrome I of right lower limbOther fci (current) drug therapy Sep-0 7 Kal Alvarado. [facility] [address], [place], [address], [place]. tel:[phone] Referring Provider: Christiano Russ, [facility] [address], [place], [address]. tel:[phone] Office/Outpa tient Visit, Est [facility], [address], [place], [address], [place] tel:[phone] [facility] , Follow Up of SLE (chief complaint) Systemic lupus erythematosu sSjogren's syndromeDizz inessOther fci (current) drug therapy Apr- 6 Kal Alvarado. [facility] [address], [place], [address], [place]. tel:[phone] Referring Provider: Christiano Russ, [facility] [address], [place], [address]. tel:[phone] Office/Outpa tient Visit, Est [facility], [address], [place], [address], [place] tel:[phone] [facility] , Follow Up of SLE (chief complaint) Systemic lupus erythematosu sSjogren's syndromeChro maddi parotitisUpp er respiratory infectionOth er fci (current) drug therapy 6 Kal Alvarado. [facility] [address], [place], [address], [place]. tel:[phone] Referring Provider: Christiano Russ, [facility] [address], [place], [address]. tel:[phone] Office/Outpa tient Visit, Est [facility], [address], [place], [address], [place] tel:[phone] [facility] , Follow Up of SLE (chief complaint) Systemic lupus erythematosu sLong term (current) use of opiate analgesicOth er fci (current) drug therapy 6 Kal Alvarado. [facility] [address], [place], [address], [place]. tel:[phone] Referring Provider: Christiano Russ, [facility] [address], [place], [address]. tel:[phone] Office/Outpa tient Visit, Est [facility], [address], [place], [address], [place] tel:[phone] [facility] , Follow Up of SLE (chief complaint) Systemic lupus erythematosu sEffect of light, sequelaPain in right footOther termite control representative (current) drug therapy 5 Kal Alvarado. [facility] [address], [place], [address], [place]. tel:[phone] Referring Provider: Christiano Russ, [facility] [address], [place], [address]. tel:[phone] Office/Outpa tient Visit, Est [facility], [address], [place], [address], [place] tel:[phone] [facility] , Follow Up of SLE (chief complaint) Systemic lupus erythematosu sFatigue / MalaiseThera peutic Drug Monitoring 5 Kal Alvarado. [facility] [address], [place], [address], [place]. tel:[phone] Referring Provider: Christiano Rsus, [facility] [address], [place], [address]. tel:[phone] Office/Outpa tient Visit, Est [facility], [address], [place], [address], [place] tel:[phone] [facility] , Follow Up of SLE (chief complaint) Systemic lupus erythematosu sCervicalgia Therapeutic Drug Monitoring 5 Kal Alvarado. [facility] [address], [place], [address], [place]. tel:[phone] Referring Provider: Christiano Russ, [facility] [address], [place], [address]. tel:[phone] Office/Outpa tient Visit, Est [facility], [address], [place], [address], [place] tel:[phone] [facility] , SLE (chief complaint) Systemic lupus erythematosu sCervicalgia Therapeutic Drug Monitoring 4 Kal Alvarado. [facility] [address], [place], [address], [place]. tel:[phone] Referring Provider: Christiano Russ, [facility] [address], [place], [address]. tel:[phone] Office/Outpa tient Visit, Est [facility], [address], [place], [address], [place] tel:[phone] [facility] , SLE (chief complaint) Systemic lupus erythematosu sMyalgia and myositis, unspecifiedT herapeutic Drug Monitoring 4 Kal Alvarado. [facility] [address], [place], [address], [place]. tel:[phone] Referring Provider: Christiano Russ, [facility] [address], [place], [address]. tel:[phone] Office/Outpa tient Visit, Est [facility], [address], [place], [address], [place] tel:[phone] [facility] , SLE (chief complaint) Systemic lupus erythematosu sDisorders of bursae and tendons in shoulder region, unspecifiedF atigue / MalaiseThera peutic Drug Monitoring 4 Kal Alvarado. [facility] [address], [place], [address], [place]. tel:[phone] Referring Provider: Christiano Russ, [facility] [address], [place], [address]. tel:[phone] Office/Outpa tient Visit, Est [facility], [address], [place], [address], [place] tel:[phone] [facility] , SLE (chief complaint) Systemic lupus erythematosu sCramp of limbChronic lymphadeniti sRash and other nonspecific skin eruptionTher apeutic Drug Monitoring 3 Kal Alvarado. [facility] [address], [place], [address], [place]. tel:[phone] Referring Provider: Christiano Russ, [facility] [address], [place], [address]. tel:[phone] Office/Outpa tient Visit, Est [facility], [address], [place], [address], [place] tel:[phone] [facility] , SLE (chief complaint) Systemic lupus erythematosu sCervicalgia Abdominal pain, left lower quadrantTher apeutic Drug Monitoring 3 Kal Alvarado. [facility] [address], [place], [address], [place]. tel:[phone] Referring Provider: Christiano Russ, [facility] [address], [place], [address]. tel:[phone] Office/Outpa tient Visit, Est [facility], [address], [place], [address], [place] tel:[phone] [facility] , SLE (chief complaint) Systemic lupus erythematosu sCervicalgia Therapeutic Drug Monitoring 3 Kal Alvarado. [facility] [address], [place], [address], [place]. tel:[phone] Referring Provider: Christiano Russ, [facility] [address], [place], [address]. tel:[phone] [facility], [address], [place], [address], [place] tel:[phone] [facility] , No Information 2 Kal Alvarado. [facility] [address], [place], [address], [place]. tel:[phone] Office/Outpa tient Visit, Est [facility], [address], [place], [address], [place] tel:[phone] [facility] , SLE (chief complaint) Systemic lupus erythematosu sCervicalgia Therapeutic Drug Monitoring 2 Kal Alvarado. [facility] [address], [place], [address], [place]. tel:[phone] Referring Provider: Christiano Russ, [facility] [address], [place], [address]. tel:[phone] Family History Family Member Type Diagnosis Age At Onset Mother Problem (finding) osteoporosis Paternal grandmother Problem (finding) Pulmonary embol us Maternal grandmother Problem (finding) osteoporosis Immunizations Vaccine Date Status Comments COVID-19 Moderna administered Source: Oth er Provider COVID-19 [employer]agan [employer] administered S ource: Other Provider Payers Payer name Insurance type Covered constitution party ID Authoriza tion(s) [facility] Medicare Advantage CI [id number] Social History Type Description Quantity Date Captured Comments Sex Female Smoking Status No Information Chief Complaint And Reason For Visit No Information Reason For Referral Reason For Referral No Information History Of Present Illness Encounter Date Complaint [...] Information Instructions Date Instruction Additional Infor juni This is her main pro blem currently. She is scheduled for a sympathetic block for treatment of this next week. Related to Complex regional pain syndrome I of right lower limb I do not think there has been any significant change in her symptoms directly related to lupus since I last saw her. I did not recommend any change in her CellCept or hydroxychloroquine. Related to Other forms of systemic lupus erythematosus Her secondary Sjogre n's syndrome also is stable. Related to Sjogren syndrome with other organ involvement I will continue to m onitor her use of hydrocodone with the help of the PDMP. Related to retirement (current) use of opiate analgesic She will have routin e laboratories today for monitoring medications and disease. Related to Other termite control representative (current) drug therapy She still has some g eneralized tenderness consistent with fibromyalgia. Overall, however, this has been well controlled for many years with the help of the analgesic medication and medication for sleep. Related to Fibromyalgia If anything, she is doing better today compared to the last time I saw her on 06/20/2021. I did not recommend any change in the CellCept or Plaquenil. Related to Other forms of systemic lupus erythematosus The symptoms are at least stable if [...] the help of the PDMP. Related to retirement (current) use of opiate analgesic She will have routin e laboratories today for monitoring medications and disease. Related to Other fci (current) drug therapy The symptoms are at [...] for this issue. Related to Bilateral photophobia She will have routin e laboratories today for monitoring medications and disease. Related to Other fci (current) drug therapy I will continue to m onitor her use of hydrocodone with the help of the PDMP. Related to retirement (current) use of opiate analgesic If anything, she is doing a bit better today compared to the last time I saw her on 06/20/2021. I did not recommend any change in the CellCept or Plaquenil. Related to Other forms of systemic lupus erythematosus I recommended follow -up with her devops architect regarding this issue. Related to Bilateral photophobia She will have routin e laboratories today for monitoring medications and disease. Related to Other termite control representative (current) drug therapy I will continue to m onitor her use of hydrocodone with the help of the PDMP. Related to retirement (current) use of opiate analgesic She still has some g eneralized tenderness [...] of right lower limb Although she is cert ainly not asymptomatic, she is definitely doing better today compared to the last time I saw her. I did not recommend any change in the CellCept or Plaquenil. Related to Other forms of systemic lupus erythematosus She is having increa sed sicca symptoms with the colder weather as might be expected. I reminded her of the importance of doing artificial tears for her dry eyes at least every 2 hours during the day and using a viscous lubricant for the eyes at night. Related to Sjogren syndrome with other organ involvement She has increased dr yness and sensitivity of her eyes. She will continue topical treatments for this. She will follow-up with her devops architect if symptoms do not settle down. Related to Sicca syndrome with other organ involvement She has seen a neuro logist for this in the past. The course of prednisone may also help with this. Related to Complex regional pain syndrome I of right lower limb She will have routin e laboratories today for monitoring medications and disease. Related to Other fci (current) drug therapy Her use of hydrocodo ne has remained stable over the years. I will continue to monitor this with the help of the PDMP. 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 We will proceed with a burst and taper of prednisone. Her other medications will remain unchanged. Related to Other forms of systemic lupus erythematosus We continue to monit or her use of hydrocodone with help of the PDMP. 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 Related to Other forms of systemic lupus erythematosus She will have routin e laboratories today for monitoring medications and disease. These will be done at her primary clinic. Related to Other fci (current) drug therapy Her right foot pain [...] Orders have been sent. Related to Other fci (current) drug therapy She may be doing [...] past with similar flares. Related to Cervicalgia She will have routin e laboratories today for monitoring medications and disease. Related to Other termite control representative (current) drug therapy The cause of her kristen ateral leg [...] about it. Related to Pain in limb I actually think her lupus is stable. I did not recommend any change in the CellCept or Plaquenil. Related to Other forms of systemic lupus erythematosus The symptoms in her right foot also [...] did not tolerate tizanidine. Related to Cervicalgia This is her main iss ue today. [...] monitoring medications and disease. Related to Other fci (current) drug therapy Overall she seems to be doing reasonably well with her lupus. I did not recommend any change in the CellCept or Plaquenil. Related to Other forms of systemic lupus erythematosus She will have routin e laboratories today for monitoring medications and disease. Related to Other termite control representative (current) drug therapy She uses the hydrocodone infrequ ently. 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 She feels better when she is on even a low dose of prednisone. I agreed to a trial of prednisone 2.5 milligrams daily. Related to Cervicalgia See discussion above. Related to Low back pain Although she is not asymptomatic, her SLE is at least stable. She will remain on her same doses of CellCept and Plaquenil. Related to Other forms of systemic lupus erythematosus The right foot pain has stabilized. Again, even this seems to respond somewhat to the prednisone. Related to Complex regional pain syndrome I of right lower limb She will have routin e laboratories today for monitoring medications and disease. Related to Other fci (current) drug therapy Her symptoms of SLE are stable. She [...] cost. Related to Systemic lupus erythematosus The right foot sympt oms seem to have plateaued. She she has had about 80% improvement from the peak of symptoms. Again, no additional treatment was recommended. Related to Complex regional pain syndrome I of right lower limb The symptoms are stable. Related to Fibromyalgia [...] obvious side effects of that. 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 [...] neck pain right now. Related to Cervicalgia Her lupus is overall stable on her current regimen. I did not recommend any change in treatment. Related to Systemic lupus erythematosus She has secondary Sj ogren's syndrome. She has tried and failed both pilocarpine and Evoxac. The Evoxac caused excessive sweating. Pilocarpine also cause unacceptable side effects. Related to Sjogren's syndrome She will have routin e laboratories today for monitoring medications and disease. Related to Other fci (current) drug therapy She had a relatively recent episode of acute parotitis involving the left parotid gland. She's had previous episodes but none as severe as this one. She did finally find any nuclear weapons specialist was able to help her clear that that. I'm not sure if the antibiotics that she had received also played a role in that improvement. 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 This does not mean that she is asymptomatic but at least her symptoms have not progressed substantially since I last saw her. I did not recommend a change in her treatment. Related to Systemic lupus erythematosus She will have routin e laboratories for monitoring medications and disease. 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 Ultimately, agreed that she should proceed with the nerve block for treatment of this. Related to Complex regional pain syndrome I of right lower limb Clinically, her lupu s appears stable. I did not recommend any change in her medications. Related to Systemic lupus erythematosus She certainly does h ave symptoms of [...] monitoring medications and disease. Related to Other fci (current) drug therapy This is being evalua [...] monitoring medications and disease. 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 She will be seeing an student services vice president alone. Likely the Sjogren's syndrome is playing some role in this. The CellCept may also be contributing to her difficulty clearing this. If this continues to be a problem, I likely will check immunoglobulin levels to make sure she does not have immunoglobulin deficiency. Related to Upper respiratory infection I think she has emily daymara secondary Sjogren's syndrome. This would be consistent with the symptoms of dry eyes, dry mouth, and recurrent parotitis by her description. I recommend a trial of Evoxac 30 milligrams 3 times a day. She is already using artificial tears. Related to Sjogren's syndrome We discussed this co ndition and and its relationship to her SLE and probable newly diagnosed secondary Sjogren's syndrome. She is aware of the potential serious nature of this. She will call here or her primary clinic if she has a significant recurrence of pain in the parotid area. Related to Chronic parotitis She has somewhat aty pical SLE. She's [...] exam was last April. 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 I recommended consideration of a second opinion with a different orthopedic foot surgeon to start out with. I suggested [facility]. Related to Pain in right foot She will have routin e laboratories today for monitoring medications and disease. 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 I recommended that she consider evaluation by a neuro-devops architect if this recently initiated trial of a migraine medication does not help her. Related to Effect of light, sequela She has never had cl assic symptoms of lupus. She has never been symptom-free. With those things being said, overall, she seems to be doing reasonably well right now on her current regimen. I did not recommend any change in her medications. Related to Systemic lupus erythematosus The fatigue certainl y could be related at least partly to her underlying disease but I also wonder if her medications are playing some role. Unfortunately, I can't see making any major changes in her medications right now. She remains on both trazodone and zolpidem for sleep. Related to Fatigue / Malaise She will have routin e laboratories today for monitoring medications and disease. Related to Therapeutic Drug Monitoring Overall, her symptom s of lupus seem to be relatively stable on her current regimen. I did not recommend any change in treatment. Related to Systemic lupus erythematosus She will have routin e laboratories today for monitoring medications and disease. Related to Therapeutic Drug Monitoring Her neck pain is imp roved. Again, I did not recommend any change in treatment. Related to Cervicalgia Although she is not symptom-free, there have been no severe uncontrolled flares of her condition since I last saw her. I did not recommend any change in treatment. Related to Systemic lupus erythematosus Assessments Type Assessment Date No Information Patient Care Teams Name Effective Dates (start - stop) Status Members No Information
--- NOTE | 2023-04-10 08:15 | CRLHL7_ITS ---
For Patients: As a result of the Century Cures Act, medical imaging exams and procedure reports are released immediately into your electronic medical record. You may view this report before your referring provider. If you have questions, please contact your health care provider. HISTORY: Right lateral chest wall pain. TECHNIQUE: Noncontrast MRI of the right chest wall. COMPARISON: Radiographs 09/11/2022. FINDINGS: The right pectoralis major muscle is intact. Tendon is intact. The pectoralis minor muscle is intact. No atrophy or edema involving the included portions of the right rotator cuff or deltoid musculature. No right axillary lymphadenopathy. No soft tissue mass or fluid collection. There are subtle subacute fractures of 2 right lateral ribs. The fractures are noted on coronal STIR image #23 of series 7 where there is associated edema. This appears to involve the 4th and 5th ribs. IMPRESSION: 1. Nondisplaced subacute fractures of the right lateral 4th and 5th ribs with associated edema. 2. No other process involving the right chest wall. Dictated by Ben Knapp MD @ 04/22/2023 8:56:33 AM (Electronically Signed)
== END 2023-04-10 08:02 | disposition home or self-care (01) ==
LOC: MRI 08:02
PROVIDERS: PCP Internal Medicine; Visit Provider Obstetrics & Gynecology
DX: R07.9 Chest pain, unspecified (principal); S22.41XA Multiple fractures of ribs, right side, initial encounter for closed fracture
CPT/HCPCS: 73218

== ENCOUNTER 2023-04-24 15:10 | Outpatient (CLI) | payer MEDICARE, SELFPAY ==
--- NOTE | 2023-04-24 15:30 | CRLHL7_ITS ---
For Patients: As a result of the Century Cures Act, medical imaging exams and procedure reports are released immediately into your electronic medical record. You may view this report before your referring provider. If you have questions, please contact your health care provider. DXA BONE MINERAL DENSITY STUDY Reason for exam: Other specified disorders of bone density. Recent rib fractures. Current height (in): 65. Weight (lb): 154. Menopause age: 31. Ethnicity: White. 1. Have you had a previous hip or vertebral fracture? Yes. 2. Have you had any fractures during your adult life which did not result from significant trauma (e.g., auto accident)? Yes. 3. Did either of your parents have a hip fracture? Yes. 4. Do you smoke? No. 5. Have you ever taken Glucocorticoids? No. 6. Do you have rheumatoid arthritis? No. 7. Do you have secondary osteoporosis? No. 8. Do you drink 3 or more alcoholic drinks per day? No. 9. Are you being treated for osteoporosis? Yes. 10. Have you ever taken any of the following medications: Actonel, Evista, Fosamax, Miacalcin, Reclast, Boniva, Forteo, HRT (i.e., estrogen/hormone therapy), Protelos, Prolia, Vitamin D, Calcium, other ??? please specify. ANSWER: Yes, Vitamin D and calcium. 11. Do you have any of the following medical conditions: Anorexia or bulimia, asthma or emphysema, end stage renal disease, hyperparathyroidism, any seizure disorders, cancer, inflammatory bowel diseases, hysterectomy, other ??? please specify. ANSWER: Yes, hysterectomy. 12. What was your maximum height (inches)? 65. 13. Do you perform weight bearing exercise regularly? No 14. Do you regularly consume dairy products? Yes. 15. Do you drink caffeinated beverages? Yes. If female: 16. At what age did your period start? 11. 17. Are you premenopausal? No. 18. How many full-term pregnancies have you had? 2. 19. Have you ever missed your period for more than 6 months in a row (not including or menopause)? No. TECHNIQUE: Bone mineral density study was performed using the [employer] FINDINGS: The results of the study expressed as bone mineral density (BMD) are as follows: Lumbar spine L1 to L4: BMD: 0.784 g/cm2. T-score: -2.4. Z-score: -1.4 Neck Left: BMD: 0.577 g/cm2. T-score: -2.5. Z-score: -1.5 Right: BMD: 0.621 g/cm2. T-score: -2.0. Z-score: -1.0 Total Left: BMD: 0.760 g/cm2. T-score: -1.5. Z-score: -0.9 Right: BMD: 0.785 g/cm2. T-score: -1.3. Z-score: -0.6 IMPRESSION: Osteoporosis. *Comparison exams done prior to 12/2019 were performed on different unit, [employer]. COMPARISON: Compared with scan of 02/21/2021, the bone mineral density has decreased by 7.5 percent at the spine and decreased by 2.4 percent at the hip. Joe Torres M.D. Diagnostic Radiologist [email or web address] ZOE/nisha cameron/Dictated by: Joe Torres MD @ 04/25/2023 12:25:00 PM (Electronically Signed)
== END 2023-04-24 15:11 | disposition home or self-care (01) ==
PROVIDERS: PCP Internal Medicine; Visit Provider Internal Medicine
DX: M85.80 Other specified disorders of bone density and structure, unspecified site (principal); M81.0 Age-related osteoporosis without current pathological fracture
CPT/HCPCS: 77080

== ENCOUNTER 2023-05-21 08:56 | Outpatient (CLI) | payer MEDICARE, SELFPAY ==
--- NOTE | 2023-05-21 09:00 | CRLHL7_ITS ---
For Patients: As a result of the Cures Act, medical imaging exams and procedure reports are released immediately into your electronic medical record. You may view this report before your referring provider. If you have questions, please contact your health care provider. INDICATION: MULTIPLE RIB FX TECHNIQUE: CT chest without contrast. COMPARISON: Radiograph March 2023. FINDINGS: Lungs and Airways: No mass or consolidation. No endoluminal lesion. Heart and Mediastinum: The visualized portions of the thyroid are normal. No axillary or supraclavicular lymphadenopathy. No mediastinal, hilar or retrocrural lymphadenopathy. Normal heart size. Normal caliber aorta. Atherosclerotic calcifications. Pleura: The pleural spaces are normal. Abdomen: Calcified splenic granulomas. Renal cyst. Retro aortic left renal vein, normal variant. Bones and soft tissues: Old/nonacute anterolateral right 4th and 5th rib fractures with incomplete union. No acute displaced fracture. IMPRESSION: Old/nonacute anterolateral right 4th and 5th rib fractures with incomplete union. No acute displaced fracture. Please note that all CT scans at this facility use dose modulation, iterative reconstruction, and/or weight-based dosing when appropriate to reduce radiation dose to as low as reasonably achievable. Dictated by Joe Villafana MD @ 05/22/2023 10:59:13 PM (Electronically Signed)
== END 2023-05-21 08:57 | disposition home or self-care (01) ==
LOC: CT 08:56
PROVIDERS: PCP Internal Medicine; Visit Provider Internal Medicine
DX: S22.49XA Multiple fractures of ribs, unspecified side, initial encounter for closed fracture (principal); M81.0 Age-related osteoporosis without current pathological fracture
CPT/HCPCS: 71250

== ENCOUNTER 2023-05-27 16:06 | Outpatient (CLI) | payer MEDICARE, SELFPAY ==
--- OUTSIDE RECORDS SUMMARY | 2023-05-27 16:09 | XMS_ITS | Continuity of Care Document ---
Author Name Unknown Organization [facility] Address [address] [place] [address] Phone Care Team Providers Care [employer] Designer Name Role Phone Christiano Bowden MD Unavailable Unavailable Allergies, Adverse Reactions, Alerts Substance Reaction Status Criticality No Known Allergies Active No Inform ation Medications Medication Instructions Dosage Effective Dates (start - stop) Status Comments hydrocodone 5 mg-acetaminophen 325 mg tablet take 1 tablet by oral route twice daily as needed - Active Chronic pain MYCOPHENOLATE 500 MG TABLET TAKE 3 TABLETS BY MOUTH EVERY MORNING AND 2 TABLETS EVERY EVENING - Active zolpidem 10 mg tablet TAKE 1 TABLET BY MOUTH AT BEDTIME NEEDED FOR INSOMNIA - Active HYDROXYCHLOROQUINE 200 MG TAB TAKE [...] Protein Dna Antibody, Single Strand Dna Antibody, Koi Nuclear Antigen Antibodies Office/Outpatient Visit, Est Routine [...] Protein Dna Antibody, Single Strand Dna Antibody, Koi Nuclear Antigen Antibodies Office/Outpatient Visit, Est Routine Venipuncture Specimen Handling Complete Cbc WAuto Diff Wbc Assay Of Serum Albumin Assay Of Creatinine Transferase (Ast) (Sgot) Alanine Amino (Alt) (Sgpt) CReactive Protein Dna Antibody, Single Strand Dna Antibody, Koi Nuclear Antigen Antibodies Office/Outpatient Visit, Est Routine Venipuncture Complete Cbc WAuto Diff Wbc Assay Of Serum Albumin Assay Of Creatinine Transferase (Ast) (Sgot) Alanine Amino (Alt) (Sgpt) CReactive Protein Dna Antibody, Single Strand Dna Antibody, Koi Nuclear Antigen Antibodies Vitamin D 25 Hydroxy [...] Protein Dna Antibody, Single Strand Dna Antibody, Koi Nuclear Antigen Antibodies Office/Outpatient Visit, Est Routine [...] Encounter [facility], [address], [place], [address], [place] tel:[phone] [facility] , No Information 3 Kal Alvarado. [facility] [address], [place], [address], [place]. tel:[phone] [facility], [address], [place], [address], [place] tel:[phone] [facility] No Information 3 Kal Alvarado. [facility] [address], [place], [address], [place]. tel:[phone] [facility], [address], [place], [address], [place] tel:[phone] [facility] No Information 3 Ricky Huizar. [address], [address], [place], [address], [place]. tel:[phone] [facility], [address], [place], [address], [place] tel:[phone] [facility] , No Information 3 Kal Alvarado. [facility] [address], [place], [address], [place]. tel:[phone] Office/Outpa tient Visit, Est [facility], [address], [place], [address], [place] tel:[phone] [facility] , Follow Up of SLE (chief complaint) Fibromyalg ia syndrome (chief complaint) Chronic regional pain syndrome (chief complaint) Other forms of systemic lupus erythematosu sSjogren syndrome with other organ involvementF ibromyalgiaL ania term (current) use of opiate analgesicOth er terminal clerk (current) drug therapyCompl ex regional pain syndrome I of right lower limb 3 Kal Alvarado. [facility] [address], [place], [address], [place]. tel:[phone] Referring Provider: Christiano Russ, [facility] [address], [place], [address]. tel:[phone] [facility], [address], [place], [address], [place] tel:[phone] [facility] , No Information 3 Kal Alvarado. [facility] [address], [place], [address], [place]. tel:[phone] [facility], [address], [place], [address], [place] tel:[phone] [facility] , No Information 2 Kal Alvarado. [facility] [address], [place], [address], [place]. tel:[phone] Office/Outpa tient Visit, Est [facility], [address], [place], [address], [place] tel:[phone] [facility] , Follow Up of SLE (chief complaint) Fibromyalg ia syndrome (chief complaint) Chronic regional pain syndrome (chief complaint) Other forms of systemic lupus erythematosu sSjogren syndrome with other organ involvementF ibromyalgiaL ania term (current) use of opiate analgesicOth er terminal clerk (current) drug therapy 2 Kal Sánchez [facility] [address], [place], [address], [place]. tel:[phone] Referring Provider: Christiano Russ, [facility] [address], [place], [address]. tel:[phone] [facility], [address], [place], [address], [place] tel:[phone] [facility] , Personal history of immunosuppre ssion therapy 2 Kal Alvarado. [facility] [address], [place], [address], [place]. tel:[phone] Referring Provider: Christiano Russ, [facility] [address], [place], [address]. tel:[phone] [facility], [address], [place], [address], [place] tel:[phone] [facility] , Personal history of immunosuppre ssion therapy 2 Kal Alvarado. [facility] [address], [place], [address], [place]. tel:[phone] [facility], [address], [place], [address], [place] tel:[phone] [facility] , No Information 2 Kal Alvarado. [facility] [address], [place], [address], [place]. tel:[phone] [facility], [address], [place], [address], [place] tel:[phone] [facility] , Personal history of immunosuppre ssion therapy 2 Kal Sánchez [facility] [address], [place], [address], [place]. tel:[phone] Office/Outpa tient Visit, Est [facility], [address], [place], [address], [place] tel:[phone] [facility] , Follow Up of SLE (chief complaint) Fibromyalg ia syndrome (chief complaint) Chronic regional pain syndrome (chief complaint) Other forms of systemic lupus erythematosu sSjogren syndrome with other organ involvementF ibromyalgiaB ilateral photophobiaO ther detention (current) drug therapyLong term (current) use of opiate analgesic 2 Kal Alvarado. [facility] [address], [place], [address], [place]. tel:[phone] Referring Provider: Christiano Russ, [facility] [address], [place], [address]. tel:[phone] Office/Outpa tient Visit, Est [facility], [address], [place], [address], [place] tel:[phone] [facility] , Follow Up of SLE (chief complaint) Fibromyalg ia syndrome (chief complaint) Chronic regional pain syndrome (chief complaint) Other forms of systemic lupus erythematosu sSjogren syndrome with other organ involvementF ibromyalgiaC omplex regional pain syndrome I of right lower limbBilatera l photophobiaO ther detention (current) drug therapyLong term (current) use of opiate analgesic 1 Kal Alvarado. [facility] [address], [place], [address], [place]. tel:[phone] Referring Provider: Christiano Russ, [facility] [address], [place], [address]. tel:[phone] Office/Outpa tient Visit, Est [facility], [address], [place], [address], [place] tel:[phone] [facility] , Follow Up of SLE (chief complaint) Other forms of systemic lupus erythematosu sSicca syndrome with other organ involvementC omplex regional pain syndrome I of right lower limbOther terminal clerk (current) drug therapyLong term (current) use of opiate analgesic 1 Kal Alvarado. [facility] [address], [place], [address], [place]. tel:[phone] Referring Provider: Christiano Russ, [facility] [address], [place], [address]. tel:[phone] Office/Outpa tient Visit, Est [facility], [address], [place], [address], [place] tel:[phone] Telehealth Follow Up of SLE (chief complaint) Other forms of systemic lupus erythematosu sOther terminal clerk (current) drug therapyLong term (current) use of opiate analgesic 0 Kal Alvarado. [facility] [address], [place], [address], [place]. tel:[phone] Referring Provider: Christiano Russ, [facility] [address], [place], [address]. tel:[phone] Office/Outpa tient Visit, Est [facility], [address], [place], [address], [place] tel:[phone] Telehealth Follow Up of SLE (chief complaint) Other forms of systemic lupus erythematosu sCervicalgia Complex regional pain syndrome I of right lower limbOther detention (current) drug therapy 0 Kal Alvarado. [facility] [address], [place], [address], [place]. tel:[phone] Referring Provider: Christiano Russ, [facility] [address], [place], [address]. tel:[phone] Office/Outpa tient Visit, Est [facility], [address], [place], [address], [place] tel:[phone] [facility] , Follow Up of SLE (chief complaint) Other forms of systemic lupus erythematosu sComplex regional pain syndrome I of right lower limbCervical giaPain in limbOther detention (current) drug therapy 9 Kal Alvarado. [facility] [address], [place], [address], [place]. tel:[phone] Referring Provider: Christiano Russ, [facility] [address], [place], [address]. tel:[phone] Office/Outpa tient Visit, Est [facility], [address], [place], [address], [place] tel:[phone] [facility] , Follow Up of SLE (chief complaint) Other forms of systemic lupus erythematosu sCervicalgia Complex regional pain syndrome I of right lower limbOther terminal clerk (current) drug therapy 9 Kal Alvarado. [facility] [address], [place], [address], [place]. tel:[phone] Referring Provider: Christiano Russ, [facility] [address], [place], [address]. tel:[phone] Office/Outpa tient Visit, Est [facility], [address], [place], [address], [place] tel:[phone] [facility] , SLE (chief complaint) Other forms of systemic lupus erythematosu sCervicalgia Low back painComplex regional pain syndrome I of right lower limbOther detention (current) drug therapyLong term (current) use of opiate analgesic Sep-2 8 Kal Alvarado. [facility] [address], [place], [address], [place]. tel:[phone] Referring Provider: Christiano Russ, [facility] [address], [place], [address]. tel:[phone] [facility], [address], [place], [address], [place] tel:[phone] [facility] , No Information 8 Kal Alvarado. [facility] [address], [place], [address], [place]. tel:[phone] Referring Provider: Christinao Russ, [facility] [address], [place], [address]. tel:[phone] Office/Outpa tient Visit, Est [facility], [address], [place], [address], [place] tel:[phone] [facility] , Follow Up of SLE (chief complaint) Systemic lupus erythematosu sComplex regional pain syndrome I of right lower limbFibromya lgiaOther detention (current) drug therapy 8 Kal Alvarado. [facility] [address], [place], [address], [place]. tel:[phone] Referring Provider: Christiano Russ, [facility] [address], [place], [address]. tel:[phone] Office/Outpa tient Visit, Est [facility], [address], [place], [address], [place] tel:[phone] [facility] , Follow Up of SLE (chief complaint) Systemic lupus erythematosu sSjogren's syndromeLow back painCervical giaComplex regional pain syndrome I of right lower limbLong term (current) use of opiate analgesic 7 Kal Alvarado. [facility] [address], [place], [address], [place]. tel:[phone] Referring Provider: Christiano Russ, [facility] [address], [place], [address]. tel:[phone] Office/Outpa tient Visit, Est [facility], [address], [place], [address], [place] tel:[phone] [facility] , Follow Up of SLE (chief complaint) Systemic lupus erythematosu sAcute recurrent parotitisSjo gren's syndromeOthe r detention (current) drug therapy Dec- 7 Kal Alvarado. [facility] [address], [place], [address], [place]. tel:[phone] Referring Provider: Christiano Russ, [facility] [address], [place], [address]. tel:[phone] Office/Outpa tient Visit, Est [facility], [address], [place], [address], [place] tel:[phone] [facility] , Follow Up of SLE (chief complaint) Systemic lupus erythematosu sComplex regional pain syndrome I of right lower limbOther terminal clerk (current) drug therapy 7 Kal Alvarado. [facility] [address], [place], [address], [place]. tel:[phone] Referring Provider: Christiano Russ, [facility] [address], [place], [address]. tel:[phone] Office/Outpa tient Visit, Est [facility], [address], [place], [address], [place] tel:[phone] [facility] , Follow Up of SLE (chief complaint) Systemic lupus erythematosu sSjogren's syndromeDizz inessOther terminal clerk (current) drug therapy 6 Kal Alvarado. [facility] [address], [place], [address], [place]. tel:[phone] Referring Provider: Christiano Russ, [facility] [address], [place], [address]. tel:[phone] Office/Outpa tient Visit, Est [facility], [address], [place], [address], [place] tel:[phone] [facility] , Follow Up of SLE (chief complaint) Systemic lupus erythematosu sSjogren's syndromeChro maddi parotitisUpp er respiratory infectionOth er terminal clerk (current) drug therapy 6 Kal Alvarado. [facility] [address], [place], [address], [place]. tel:[phone] Referring Provider: Christiano Russ, [facility] [address], [place], [address]. tel:[phone] Office/Outpa tient Visit, Est [facility], [address], [place], [address], [place] tel:[phone] [facility] , Follow Up of SLE (chief complaint) Systemic lupus erythematosu sLong term (current) use of opiate analgesicOth er detention (current) drug therapy 6 Kal Alvarado. [facility] [address], [place], [address], [place]. tel:[phone] Referring Provider: Christiano Russ, [facility] [address], [place], [address]. tel:[phone] Office/Outpa tient Visit, Est [facility], [address], [place], [address], [place] tel:[phone] [facility] , Follow Up of SLE (chief complaint) Systemic lupus erythematosu sEffect of light, sequelaPain in right footOther detention (current) drug therapy 5 Kal Alvarado. [facility] [address], [place], [address], [place]. tel:[phone] Referring Provider: Christiano Russ, [facility] [address], [place], [address]. tel:[phone] Office/Outpa tient Visit, Est [facility], [address], [place], [address], [place] tel:[phone] [facility] , Follow Up of SLE (chief complaint) Systemic lupus erythematosu sFatigue / MalaiseThera peutic Drug Monitoring 5 Kal Alvarado. [facility] [address], [place], [address], [place]. tel:[phone] Referring Provider: Christiano Russ, [facility] [address], [place], [address]. tel:[phone] Office/Outpa tient Visit, Est [facility], [address], [place], [address], [place] tel:[phone] [facility] , Follow Up of SLE (chief complaint) Systemic lupus erythematosu sCervicalgia Therapeutic Drug Monitoring 5 Kal Alvarado. [facility] [address], [place], [address], [place]. tel:[phone] Referring Provider: Christiano Russ, [facility] [address], [place], [address]. tel:[phone] Office/Outpa tient Visit, Est [facility], [address], [place], [address], [place] tel:[phone] [facility] , SLE (chief complaint) Systemic lupus erythematosu sCervicalgia Therapeutic Drug Monitoring 4 Kal Alvarado. [facility] [address], [place], [address], [place]. tel:[phone] Referring Provider: Christiano Russ, [facility] [address], [place], [address]. tel:[phone] Office/Outpa tient Visit, Est [facility], [address], [place], [address], [place] tel:[phone] [facility] , SLE (chief complaint) Systemic lupus erythematosu sMyalgia and myositis, unspecifiedT herapeutic Drug Monitoring 4 Kal Alvarado. [facility] [address], [place], [address], [place]. tel:[phone] Referring Provider: Christiano Russ, [facility] [address], [place], [address]. tel:[phone] Office/Outpa tient Visit, Est [facility], [address], [place], [address], [place] tel:[phone] [facility] , SLE (chief complaint) Systemic lupus erythematosu sDisorders of bursae and tendons in shoulder region, unspecifiedF atigue / MalaiseThera peutic Drug Monitoring 4 Kal Alvarado. [facility] [address], [place], [address], [place]. tel:[phone] Referring Provider: Christiano Russ, [facility] [address], [place], [address]. tel:[phone] Office/Outpa tient Visit, Est [facility], [address], [place], [address], [place] tel:[phone] [facility] , SLE (chief complaint) Systemic lupus erythematosu sCramp of limbChronic lymphadeniti sRash and other nonspecific skin eruptionTher apeutic Drug Monitoring 3 Kal Alvarado. [facility] [address], [place], [address], [place]. tel:[phone] Referring Provider: Christiano Russ, [facility] [address], [place], [address]. tel:[phone] Office/Outpa tient Visit, Est [facility], [address], [place], [address], [place] tel:[phone] [facility] , SLE (chief complaint) Systemic lupus erythematosu sCervicalgia Abdominal pain, left lower quadrantTher apeutic Drug Monitoring 3 Kal Alvarado. [facility] [address], [place], [address], [place]. tel:[phone] Referring Provider: Christiano Russ, [facility] [address], [place], [address]. tel:[phone] Office/Outpa tient Visit, Est [facility], [address], [place], [address], [place] tel:[phone] [facility] , SLE (chief complaint) Systemic lupus erythematosu sCervicalgia Therapeutic Drug Monitoring 3 Kal Alvarado. [facility] [address], [place], [address], [place]. tel:[phone] Referring Provider: Christiano Russ, [facility] [address], [place], [address]. tel:[phone] [facility], [address], [place], [address], [place] tel:[phone] [facility] , No Information 2 Kal Alvarado. [facility] [address], [place], [address], [place]. tel:[phone] Office/Outpa tient Visit, Est [facility], [address], [place], [address], [place] tel:[phone] [facility] , SLE (chief complaint) Systemic lupus erythematosu sCervicalgia Therapeutic Drug Monitoring 2 Kal Alvarado. [facility] [address], [place], [address], [place]. tel:[phone] Referring Provider: Christiano Russ, [facility] [address], [place], [address]. tel:[phone] Family History Family Member Type Diagnosis Age At Onset Mother Problem (finding) osteoporosis Paternal grandmother Problem (finding) Pulmonary embol us Maternal grandmother Problem (finding) osteoporosis Immunizations Vaccine Date Status Comments COVID-19 Moderna administered Source: Oth er Provider COVID-19 [employer]agan [employer] G[employer] administered S ource: Other Provider Payers Payer name Insurance type Covered republican ID Vale roldan(s) Zackery Medicare Advantage CI [id number] Social History Type Description Quantity Date Captured [...] the help of the PDMP. Related to buttermaker continuous churn (current) use of opiate analgesic She will have routin e laboratories today for monitoring medications and disease. Related to Other terminal clerk (current) drug therapy If anything, she is doing better today [...] the help of the PDMP. Related to buttermaker continuous churn (current) use of opiate analgesic She will have routin e laboratories today for monitoring medications and disease. Related to Other terminal clerk (current) drug therapy If anything, she is doing a bit [...] monitoring medications and disease. Related to Other detention (current) drug therapy I will continue to m onitor her use of hydrocodone with the help of the PDMP. Related to snf (current) use of opiate analgesic I recommended follow -up with her certified caregiver regarding this issue. Related to Bilateral photophobia She will have routin e laboratories today for monitoring medications and disease. Related to Other terminal clerk (current) drug therapy I will continue to m onitor her use of hydrocodone with the help of the PDMP. Related to snf (current) use of opiate analgesic She still [...] for this. She will follow-up with her certified caregiver if symptoms do not settle down. Related to Sicca syndrome with other organ involvement She has seen a neuro logist for this in the past. The course of prednisone may also help with this. Related to Complex regional pain syndrome I of right lower limb She will have routin e laboratories today for monitoring medications and disease. Related to Other detention (current) drug therapy Her use of hydrocodo ne has remained stable over the years. I will continue to monitor this with the help of the PDMP. Related to buttermaker continuous churn (current) use of opiate analgesic She seems to be expe riencing a generalized flare of her lupus currently. We will proceed with a burst and taper of prednisone. Her other medications will remain unchanged. Related to Other forms of systemic lupus erythematosus We continue to monit or her use of hydrocodone with help of the PDMP. Related to buttermaker continuous churn (current) use of opiate analgesic Although not asympto matic, she is doing reasonably well with her SLE currently and I did not recommend any change in treatment. Related to Other forms of systemic lupus erythematosus She will have routin e laboratories today for monitoring medications and disease. These will be done at her primary clinic. Related to Other detention (current) drug therapy Her right foot pain [...] Orders have been sent. Related to Other detention (current) drug therapy She may be doing [...] monitoring medications and disease. Related to Other detention (current) drug therapy I actually think her lupus is stable. [...] monitoring medications and disease. Related to Other terminal clerk (current) drug therapy Overall she seems to be doing reasonably well with her lupus. I did not recommend any change in the CellCept or Plaquenil. Related to Other forms of systemic lupus erythematosus She will have routin e laboratories today for monitoring medications and disease. Related to Other terminal clerk (current) drug therapy She uses the hydrocodone infrequ ently. Related to buttermaker continuous churn (current) use of opiate analgesic Although she is not asymptomatic, her SLE is at least stable. She will remain on her same doses of CellCept and Plaquenil. Related to Other forms of systemic lupus erythematosus She has chronic pers istent neck and [...] monitoring medications and disease. Related to Other detention (current) drug therapy Her symptoms of SLE [...] obvious side effects of that. Related to buttermaker continuous churn (current) use of opiate analgesic Her lupus [...] pain right now. Related to Cervicalgia She has secondary Sj ogren's syndrome. She has tried and failed both pilocarpine and Evoxac. The Evoxac caused excessive sweating. Pilocarpine also cause unacceptable side effects. Related to Sjogren's syndrome She will have routin e laboratories today for monitoring medications and disease. Related to Other terminal clerk (current) drug therapy Other than the episo de of pericarditis, [...] this one. She did finally find any research compliance specialist was able to help her clear that that. I'm not sure if the antibiotics that she had received also played a role in that improvement. 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 Related to Other detention (current) drug therapy Clinically, her lupu s [...] of Sjogren's syndrome. Related to Sjogren's syndrome This is being evalua augie and treated through her neurologist. Related to Dizziness She will have routin e laboratories today for monitoring medications and disease. Related to Other detention (current) drug therapy It's difficult to sa y whether the above symptoms are directly related to her lupus or not. Recent laboratories have not been consistent with a generalized flare of her condition. I did not recommend any change in the CellCept or Plaquenil. Related to Systemic lupus erythematosus She will have routin e laboratories today for monitoring medications and disease. Related to Other detention (current) drug therapy She has a persistent upper respiratory infection suggestive of sinusitis. She will be seeing an monotype mechanic alone. Likely the Sjogren's syndrome is playing some role in this. The CellCept may also be contributing to her difficulty clearing this. If this continues to be a problem, I likely will check immunoglobulin levels to make sure she does not have immunoglobulin deficiency. Related to Upper respiratory infection I think she has emily dayd secondary Sjogren's syndrome. This would be consistent [...] exam was last April. 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 I recommended consideration of a second opinion with a different orthopedic foot surgeon to start out with. I suggested [facility]. Related to Pain in right foot She will have routin e laboratories today for monitoring medications and disease. Related to Other terminal clerk (current) drug therapy She has never had [...] recommended that she consider evaluation by a neuro-certified caregiver if this recently initiated trial of a migraine medication does not help her. Related to Effect of light, sequela The fatigue certainl y could be related [...] treatment. Related to Systemic lupus erythematosus Her neck pain is imp roved. Again, I did not recommend any change in treatment. Related to Cervicalgia She will have routin e laboratories today for monitoring medications and disease. Related to Therapeutic Drug Monitoring Assessments Type Assessment Date No Information Patient Care Teams Name Effective Dates (start - stop) Status Members No Information
== END 2023-05-27 16:07 | disposition home or self-care (01) ==
PROVIDERS: PCP Internal Medicine; Visit Provider Internal Medicine
DX: S22.49XA Multiple fractures of ribs, unspecified side, initial encounter for closed fracture (principal)
CPT/HCPCS: 80053; 82306; 84443

== ENCOUNTER 2023-07-08 08:39 | Outpatient (CLI) | payer MEDICARE, SELFPAY ==
--- NOTE | 2023-07-08 09:00 | CRLHL7_ITS ---
For Patients: As a result of the Century Cures Act, medical imaging exams and procedure reports are released immediately into your electronic medical record. You may view this report before your referring provider. If you have questions, please contact your health care provider. Indication: RIB FRACTURE Follow UP ON AND OFF PAIN ON HER RIGHT UPPER RIB CAGE Technique: Noncontrast CT chest Please note that all CT scans at this facility use dose modulation, iterative reconstruction, and/or weight-based dosing when appropriate to reduce radiation dose to as low as reasonably achievable. Comparison: 05/21/2023 Findings: Exophytic cyst arising from the upper pole of the left kidney is unchanged measuring 2.3 cm. Calcified splenic granulomas are similar. Adrenal glands are normal. No calcified gallstones. Small hiatal hernia is present measuring 2.4 cm. Atherosclerotic changes are present including calcifications of the coronary arteries. Mild residual thymic tissue in the anterior mediastinum is present. Stable subcentimeter precarinal lymph node. Breast tissue is unremarkable. Normal axillary lymph nodes. Small bone islands are present in the right humeral head. Fracture deformities of the right lateral 4th and 5th ribs our presents with mature callous formation which has progressed since the prior study. Trace residual fracture margins noted. No destructive changes. No new fracture. Vertebral bodies are maintained. Postop changes to the lower cervical spine. No suspicious pulmonary nodule. No infiltrate or edema. No effusion or pneumothorax. Impression: Near complete healing of the nondisplaced right lateral 4th and 5th rib fractures with anatomic alignment. No suspicious lesion. No adjacent soft tissue swelling. Please note that all CT scans at this facility use dose modulation, iterative reconstruction, and/or weight-based dosing when appropriate to reduce radiation dose to as low as reasonably achievable. Dictated by Joe Torres MD @ 07/08/2023 1:13:33 PM (Electronically Signed)
== END 2023-07-08 08:40 | disposition home or self-care (01) ==
LOC: CT 08:40
PROVIDERS: PCP Internal Medicine; Visit Provider Internal Medicine
DX: S22.49XA Multiple fractures of ribs, unspecified side, initial encounter for closed fracture (principal); S22.41XA Multiple fractures of ribs, right side, initial encounter for closed fracture
CPT/HCPCS: 71250

== ENCOUNTER 2023-07-10 13:48 | Outpatient (CLI) | payer MEDICARE, SELFPAY ==
--- OUTSIDE RECORDS SUMMARY | 2023-07-10 13:52 | XMS_ITS | Continuity of Care Document ---
Author Name Unknown Organization [facility] Address [address] [facility] [address] [place] [address] Phone Care Team Providers Care Whiskey Regauger Name Role Phone Christiano Bowden MD Unavailable Unavailable Allergies, Adverse Reactions, Alerts Substance Reaction Status Criticality No Known Allergies Active No Inform ation Medications Medication Instructions Dosage Effective Dates (start - stop) Status Comments hydrocodone 5 mg-acetaminophen 325 mg tablet take 1 tablet by oral route twice daily as needed - Active Chronic pain zolpidem 10 mg tablet TAKE 1 TABLET BY MOUTH AT BEDTIME NEEDED FOR INSOMNIA - Active Do not dispense until 06/18/23. MYCOPHENOLATE 500 MG TABLET TAKE 3 TABLETS [...] needed - No Longer Active Chronic pain zolpidem 10 mg tablet TAKE 1 TABLET BY MOUTH AT BEDTIME NEEDED FOR INSOMNIA - No Longer Active Procedures Procedure Date Office/Outpatient Visit, Est [...] Protein Dna Antibody, Single Strand Dna Antibody, [place] Nuclear Antigen Antibodies Office/Outpatient Visit, Est Routine [...] Protein Dna Antibody, Single Strand Dna Antibody, [place] Nuclear Antigen Antibodies Office/Outpatient Visit, Est Routine Venipuncture Specimen Handling Complete Cbc WAuto Diff Wbc Assay Of Serum Albumin Assay Of Creatinine Transferase (Ast) (Sgot) Alanine Amino (Alt) (Sgpt) CReactive Protein Dna Antibody, Single Strand Dna Antibody, [place] Nuclear Antigen Antibodies Office/Outpatient Visit, Est Routine Venipuncture Complete Cbc WAuto Diff Wbc Assay Of Serum Albumin Assay Of Creatinine Transferase (Ast) (Sgot) Alanine Amino (Alt) (Sgpt) CReactive Protein Dna Antibody, Single Strand Dna Antibody, [place] Nuclear Antigen Antibodies Vitamin D 25 Hydroxy [...] Protein Dna Antibody, Single Strand Dna Antibody, [place] Nuclear Antigen Antibodies Office/Outpatient Visit, Est Routine [...] Copied on Encounter [facility], [address], [place], [address], [place] tel:[phone] [facility] , No Information 3 Kal Alvarado. [facility] [address], [place], [address], [place]. tel:[phone] [facility], [address], [place], [address], [place] tel:[phone] [facility] , No Information 3 Kal Alvarado. [facility] [address], [place], [address], [place]. tel:[phone] [facility], [address], [place], [address], [place] tel:[phone] [facility] No Information 3 Kal Sánchez [facility] [address], [place], [address], [place]. tel:[phone] [facility], [address], [place], [address], [place] tel:[phone] [facility] No Information 3 Ricky Huizar. [address], [address], [place], [address], [place]. tel:[phone] Office/Outpa tient Visit, Est [facility], [address], [place], [address], [place] tel:[phone] [facility] , Follow Up of SLE (chief complaint) Fibromyalg ia syndrome (chief complaint) Chronic regional pain syndrome (chief complaint) Other forms of systemic lupus erythematosu sSjogren syndrome with other organ involvementF ibromyalgiaL ania term (current) use of opiate analgesicOth er half-way (current) drug therapyCompl ex regional pain syndrome I of right lower limb 3 Kal Alvarado. [facility] [address], [place], [address], [place]. tel:[phone] Referring Provider: Christiano Russ, [facility] [address], [place], [address]. tel:[phone] [facility], [address], [place], [address], [place] tel:[phone] [facility] , No Information 3 Kal Alvarado. [facility] [address], [place], [address], [place]. tel:[phone] [facility], [address], [place], [address], [place] tel:[phone] [facility] , No Information 2 Kal Alvarado. [facility] [address], [place], [address], [place]. tel:[phone] Office/Outpa tient Visit, Est [facility], [address], [place], [address], [place] tel:[phone] [facility] , Follow Up of SLE (chief complaint) Fibromyalg ia syndrome (chief complaint) Chronic regional pain syndrome (chief complaint) Other forms of systemic lupus erythematosu sSjogren syndrome with other organ involvementF ibromyalgiaL ania term (current) use of opiate analgesicOth er half-way (current) drug therapy 2 Kal Sánchez [facility] [address], [place], [address], [place]. tel:[phone] Referring Provider: Christiano Russ, [facility] [address], [place], [address]. tel:[phone] [facility], [address], [place], [address], [place] tel:[phone] [facility] , Personal history of immunosuppre ssion therapy 2 Kal Alvarado. [facility] [address], [place], [address], [place]. tel:[phone] Referring Provider: Christiano Russ, [facility] [address], [place], [address]. tel:[phone] [facility], [address], [place], [address], [place] tel:[phone] [facility] , Personal history of immunosuppre ssion therapy 2 Kal Sánchez [facility] [address], [place], [address], [place]. tel:[phone] [facility], [address], [place], [address], [place] tel:[phone] [facility] , No Information 2 Kal Sánchez [facility] [address], [place], [address], [place]. tel:[phone] [facility], [address], [place], [address], [place] tel:[phone] [facility] , Personal history of immunosuppre ssion therapy 2 Kal Alvarado. [facility] [address], [place], [address], [place]. tel:[phone] Office/Outpa tient Visit, Est [facility], [address], [place], [address], [place] tel:[phone] [facility] , Follow Up of SLE (chief complaint) Fibromyalg ia syndrome (chief complaint) Chronic regional pain syndrome (chief complaint) Other forms of systemic lupus erythematosu sSjogren syndrome with other organ involvementF ibromyalgiaB ilateral photophobiaO ther half-way (current) drug therapyLong term (current) use of opiate analgesic 2 Kal Alvarado. [facility] [address], [place], [address], [place]. tel:[phone] Referring Provider: Christiano Russ, [facility] [address], [place], [address]. tel:[phone] Office/Outpa tient Visit, Est [facility], [address], [place], [address], [place] tel:[phone] [facility] , Follow Up of SLE (chief complaint) Fibromyalg ia syndrome (chief complaint) Chronic regional pain syndrome (chief complaint) Other forms of systemic lupus erythematosu sSjogren syndrome with other organ involvementF ibromyalgiaC omplex regional pain syndrome I of right lower limbBilatera l photophobiaO ther half-way (current) drug therapyLong term (current) use of opiate analgesic Kal Alvarado. [facility] [address], [place], [address], [place]. tel:[phone] Referring Provider: Christiano Russ, [facility] [address], [place], [address]. tel:[phone] Office/Outpa tient Visit, Est [facility], [address], [place], [address], [place] tel:[phone] [facility] , Follow Up of SLE (chief complaint) Other forms of systemic lupus erythematosu sSicca syndrome with other organ involvementC omplex regional pain syndrome I of right lower limbOther half-way (current) drug therapyLong term (current) use of opiate analgesic Oct- 1 Kal Alvarado. [facility] [address], [place], [address], [place]. tel:[phone] Referring Provider: Christiano Russ, [facility] [address], [place], [address]. tel:[phone] Office/Outpa tient Visit, Est [facility], [address], [place], [address], [place] tel:[phone] Telehealth Follow Up of SLE (chief complaint) Other forms of systemic lupus erythematosu sOther life enrichment manager (current) drug therapyLong term (current) use of opiate analgesic 0 Kal Alvarado. [facility] [address], [place], [address], [place]. tel:[phone] Referring Provider: Christiano Russ, [facility] [address], [place], [address]. tel:[phone] Office/Outpa tient Visit, Est [facility], [address], [place], [address], [place] tel:[phone] Telehealth Follow Up of SLE (chief complaint) Other forms of systemic lupus erythematosu sCervicalgia Complex regional pain syndrome I of right lower limbOther life enrichment manager (current) drug therapy Oct- 0 Kal Alvarado. [facility] [address], [place], [address], [place]. tel:[phone] Referring Provider: Christiano Russ, [facility] [address], [place], [address]. tel:[phone] Office/Outpa tient Visit, Est [facility], [address], [place], [address], [place] tel:[phone] [facility] , Follow Up of SLE (chief complaint) Other forms of systemic lupus erythematosu sComplex regional pain syndrome I of right lower limbCervical giaPain in limbOther half-way (current) drug therapy 9 Kal Alvarado. [facility] [address], [place], [address], [place]. tel:[phone] Referring Provider: Christiano Russ, [facility] [address], [place], [address]. tel:[phone] Office/Outpa tient Visit, Est [facility], [address], [place], [address], [place] tel:[phone] [facility] , Follow Up of SLE (chief complaint) Other forms of systemic lupus erythematosu sCervicalgia Complex regional pain syndrome I of right lower limbOther half-way (current) drug therapy 9 Kal Alvarado. [facility] [address], [place], [address], [place]. tel:[phone] Referring Provider: Christiano Russ, [facility] [address], [place], [address]. tel:[phone] Office/Outpa tient Visit, Est [facility], [address], [place], [address], [place] tel:[phone] [facility] , SLE (chief complaint) Other forms of systemic lupus erythematosu sCervicalgia Low back painComplex regional pain syndrome I of right lower limbOther life enrichment manager (current) drug therapyLong term (current) use of opiate analgesic 8 Kal Alvarado. [facility] [address], [place], [address], [place]. tel:[phone] Referring Provider: Christiano Russ, [facility] [address], [place], [address]. tel:[phone] [facility], [address], [place], [address], [place] tel:[phone] [facility] , No Information 8 Kal Alvarado. [facility] [address], [place], [address], [place]. tel:[phone] Referring Provider: Christiano Russ, [facility] [address], [place], [address]. tel:[phone] Office/Outpa tient Visit, Est [facility], [address], [place], [address], [place] tel:[phone] [facility] , Follow Up of SLE (chief complaint) Systemic lupus erythematosu sComplex regional pain syndrome I of right lower limbFibromya lgiaOther life enrichment manager (current) drug therapy 8 Kal Alvarado. [facility] [address], [place], [address], [place]. tel:[phone] Referring Provider: Christiano Russ, [facility] [address], [place], [address]. tel:[phone] Office/Outpa tient Visit, Est [facility], [address], [place], [address], [place] tel:[phone] [facility] , Follow Up of SLE (chief complaint) Systemic lupus erythematosu sSjogren's syndromeLow back painCervical giaComplex regional pain syndrome I of right lower limbLong term (current) use of opiate analgesic Kal Alvarado. [facility] [address], [place], [address], [place]. tel:[phone] Referring Provider: Christiano Russ, [facility] [address], [place], [address]. tel:[phone] Office/Outpa tient Visit, Est [facility], [address], [place], [address], [place] tel:[phone] [facility] , Follow Up of SLE (chief complaint) Systemic lupus erythematosu sAcute recurrent parotitisSjo gren's syndromeOthe r life enrichment manager (current) drug therapy Kal Alvarado. [facility] [address], [place], [address], [place]. tel:[phone] Referring Provider: Christiano Russ, [facility] [address], [place], [address]. tel:[phone] Office/Outpa tient Visit, Est [facility], [address], [place], [address], [place] tel:[phone] [facility] , Follow Up of SLE (chief complaint) Systemic lupus erythematosu sComplex regional pain syndrome I of right lower limbOther life enrichment manager (current) drug therapy 7 Kal Alvarado. [facility] [address], [place], [address], [place]. tel:[phone] Referring Provider: Christiano Russ, [facility] [address], [place], [address]. tel:[phone] Office/Outpa tient Visit, Est [facility], [address], [place], [address], [place] tel:[phone] [facility] , Follow Up of SLE (chief complaint) Systemic lupus erythematosu sSjogren's syndromeDizz inessOther life enrichment manager (current) drug therapy 6 Kal Alvarado. [facility] [address], [place], [address], [place]. tel:[phone] Referring Provider: Christiano Russ, [facility] [address], [place], [address]. tel:[phone] Office/Outpa tient Visit, Est [facility], [address], [place], [address], [place] tel:[phone] [facility] , Follow Up of SLE (chief complaint) Systemic lupus erythematosu sSjogren's syndromeChro maddi parotitisUpp er respiratory infectionOth er half-way (current) drug therapy 6 Kal Alvarado. [facility] [address], [place], [address], [place]. tel:[phone] Referring Provider: Christiano Russ, [facility] [address], [place], [address]. tel:[phone] Office/Outpa tient Visit, Est [facility], [address], [place], [address], [place] tel:[phone] [facility] , Follow Up of SLE (chief complaint) Systemic lupus erythematosu sLong term (current) use of opiate analgesicOth er half-way (current) drug therapy 6 Kal Alvarado. [facility] [address], [place], [address], [place]. tel:[phone] Referring Provider: Christiano Russ, [facility] [address], [place], [address]. tel:[phone] Office/Outpa tient Visit, Est [facility], [address], [place], [address], [place] tel:[phone] [facility] , Follow Up of SLE (chief complaint) Systemic lupus erythematosu sEffect of light, sequelaPain in right footOther half-way (current) drug therapy 5 Kal Alvarado. [facility] [address], [place], [address], [place]. tel:[phone] Referring Provider: Christiano Russ, [facility] [address], [place], [address]. tel:[phone] Office/Outpa tient Visit, Est [facility], [address], [place], [address], [place] tel:[phone] [facility] , Follow Up of SLE (chief complaint) Systemic lupus erythematosu sFatigue / MalaiseThera peutic Drug Monitoring 5 Kal Alvarado. [facility] [address], [place], [address], [place]. tel:[phone] Referring Provider: Christiano Russ, [facility] [address], [place], [address]. tel:[phone] Office/Outpa tient Visit, Est [facility], [address], [place], [address], [place] tel:[phone] [facility] , Follow Up of SLE (chief complaint) Systemic lupus erythematosu sCervicalgia Therapeutic Drug Monitoring 5 Kal Alvarado. [facility] [address], [place], [address], [place]. tel:[phone] Referring Provider: Christiano Russ, [facility] [address], [place], [address]. tel:[phone] Office/Outpa tient Visit, Est [facility], [address], [place], [address], [place] tel:[phone] [facility] , SLE (chief complaint) Systemic lupus erythematosu sCervicalgia Therapeutic Drug Monitoring 4 Kal Alvarado. [facility] [address], [place], [address], [place]. tel:[phone] Referring Provider: Christiano Russ, [facility] [address], [place], [address]. tel:[phone] Office/Outpa tient Visit, Est [facility], [address], [place], [address], [place] tel:[phone] [facility] , SLE (chief complaint) Systemic lupus erythematosu sMyalgia and myositis, unspecifiedT herapeutic Drug Monitoring 4 Kal Sánchez [facility] [address], [place], [address], [place]. tel:[phone] Referring Provider: Christiano Russ, [facility] [address], [place], [address]. tel:[phone] Office/Outpa tient Visit, Est [facility], [address], [place], [address], [place] tel:[phone] [facility] , SLE (chief complaint) Systemic lupus erythematosu sDisorders of bursae and tendons in shoulder region, unspecifiedF atigue / MalaiseThera peutic Drug Monitoring 4 Kal Alvarado. [facility] [address], [place], [address], [place]. tel:[phone] Referring Provider: Christiano Russ, [facility] [address], [place], [address]. tel:[phone] Office/Outpa tient Visit, Est [facility], [address], [place], [address], [place] tel:[phone] [facility] , SLE (chief complaint) Systemic lupus erythematosu sCramp of limbChronic lymphadeniti sRash and other nonspecific skin eruptionTher apeutic Drug Monitoring 3 Kal Alvarado. [facility] [address], [place], [address], [place]. tel:[phone] Referring Provider: Christiano Russ, [facility] [address], [place], [address]. tel:[phone] Office/Outpa tient Visit, Est [facility], [address], [place], [address], [place] tel:[phone] [facility] , SLE (chief complaint) Systemic lupus erythematosu sCervicalgia Abdominal pain, left lower quadrantTher apeutic Drug Monitoring 3 Kal Alvarado. [facility] [address], [place], [address], [place]. tel:[phone] Referring Provider: Christiano Russ, [facility] [address], [place], [address]. tel:[phone] Office/Outpa tient Visit, Est [facility], [address], [place], [address], [place] tel:[phone] [facility] , SLE (chief complaint) Systemic lupus erythematosu sCervicalgia Therapeutic Drug Monitoring 3 Kal Alvarado. [facility] [address], [place], [address], [place]. tel:[phone] Referring Provider: Christiano Russ, [facility] [address], [place], [address]. tel:[phone] [facility], [address], [place], [address], [place] tel:[phone] [facility] , No Information 2 Kal Alvarado. [facility] [address], [place], [address], [place]. tel:[phone] Office/Outpa tient Visit, Est [facility], [address], [place], [address], [place] tel:[phone] [facility] , SLE (chief complaint) Systemic lupus erythematosu sCervicalgia Therapeutic Drug Monitoring 2 Kal Alvarado. [facility] [address], [place], [address], [place]. tel:[phone] Referring Provider: Christiano Russ, [facility] [address], [place], [address]. tel:[phone] Family History Family Member Type Diagnosis Age At Onset Mother Problem (finding) osteoporosis Paternal grandmother Problem (finding) Pulmonary embol us Maternal grandmother Problem (finding) osteoporosis Immunizations Vaccine Date Status Comments COVID-19 Moderna administered Source: Oth er Provider COVID-19 Gagan [employer] Gagan administered S ource: Other Provider Payers Payer name Insurance type Covered constitution party ID Authordiana jamar(s) [employer] Advantage [id number] Social History Type Description Quantity Date Captured [...] monitoring medications and disease. Related to Other half-way (current) drug therapy I will continue to m onitor her use of hydrocodone with the help of the PDMP. Related to group home (current) use of opiate analgesic She still has some g eneralized tenderness consistent with fibromyalgia. Overall, however, this has been well controlled for many years with the help of the analgesic medication and medication for sleep. Related to Fibromyalgia Her secondary Sjogre n's syndrome also is stable. Related to Sjogren syndrome with other organ involvement If anything, she is doing better today compared to the last time I saw her on 06/20/2021. I did not recommend any change in the CellCept or Plaquenil. Related to Other forms of systemic lupus erythematosus She still has some g eneralized tenderness consistent with fibromyalgia. Overall, however, this has been well controlled for many years with the help of the analgesic medication and medication for sleep. Related to Fibromyalgia The symptoms are at least stable if not a bit improved compared to the last time I saw her. Again, no change in treatment was recommended. Related to Sjogren syndrome with other organ involvement I will continue to m onitor her use of hydrocodone with the help of the PDMP. Related to hand gluer and slicer (current) use of opiate analgesic She will have routin e laboratories today for monitoring medications and disease. Related to Other life enrichment manager (current) drug therapy At this point, there does not seem to be much more that can be done for this issue. Related to Bilateral photophobia She will have routin e laboratories today for monitoring medications and disease. Related to Other half-way (current) drug therapy I will continue to m onitor her use of hydrocodone with the help of the PDMP. Related to group home (current) use of opiate analgesic The symptoms are at least stable if not a bit improved compared to the last time I saw her. Again, no change in treatment was recommended. Related to Sjogren syndrome with other organ involvement If anything, she is doing a bit better today compared to the last time I saw her on 06/20/2021. I did not recommend any change in the CellCept or Plaquenil. Related to Other forms of systemic lupus erythematosus She still has some g eneralized tenderness consistent with fibromyalgia. Overall, however, this has been well controlled for many years with the help of the analgesic medication and medication for sleep. Related to Fibromyalgia I recommended follow -up with her milanese knitting machine operator regarding this issue. Related to Bilateral photophobia She will have routin e laboratories today for monitoring medications and disease. Related to Other half-way (current) drug therapy I will continue to m onitor her use of hydrocodone with the help of the PDMP. Related to hand gluer and slicer (current) use of opiate analgesic This is an ongoing i ssue with significant pain still in the right foot. She would like to see an orthopedist to see if there is anything mechanical that is contributing to her pain. I gave her the names of good foot surgeons. Related to Complex regional pain syndrome I of right lower limb She still has some g eneralized tenderness consistent with fibromyalgia. Overall, however, this has been well controlled for many years with the help of the analgesic medication and medication for sleep. Related to Fibromyalgia Although she is cert ainly not asymptomatic, [...] syndrome I of right lower limb Her use of hydrocodo ne has remained stable over the years. I will continue to monitor this with the help of the PDMP. Related to hand gluer and slicer (current) use of opiate analgesic She has increased dr yness and sensitivity of her eyes. She will continue topical treatments for this. She will follow-up with her milanese knitting machine operator if symptoms do not settle down. Related to Sicca syndrome with other organ involvement She will have routin e laboratories today for monitoring medications and disease. Related to Other half-way (current) drug therapy She seems to be expe riencing a generalized flare of her lupus currently. We will proceed with a burst and taper of prednisone. Her other medications will remain unchanged. Related to Other forms of systemic lupus erythematosus We continue to monit or her use of hydrocodone with help of the PDMP. Related to group home (current) use of opiate analgesic Although not asympto matic, she is doing reasonably well with her SLE currently and I did not recommend any change in treatment. Related to Other forms of systemic lupus erythematosus She will have routin e laboratories today for monitoring medications and disease. These will be done at her primary clinic. Related to Other half-way (current) drug therapy Her right foot pain [...] Orders have been sent. Related to Other half-way (current) drug therapy I will provide a pre scription for the prednisone equivalent of a Medrol Dosepak for her neck pain. This has worked well for her in the past with similar flares. Related to Cervicalgia She may be doing a b it worse with her SLE overall compared to 6 months ago but there has not been a major flare. I did not recommend any change in her doses of CellCept or Plaquenil. Related to Other forms of systemic lupus erythematosus She will have routin e laboratories today for monitoring medications and disease. Related to Other half-way (current) drug therapy The cause of her [...] about it. Related to Pain in limb Her neck pain is ирина thly [...] pain syndrome I of right lower limb This is her main iss ue today. [...] monitoring medications and disease. Related to Other half-way (current) drug therapy Overall she seems to be doing reasonably well with her lupus. I did not recommend any change in the CellCept or Plaquenil. Related to Other forms of systemic lupus erythematosus She will have routin e laboratories today for monitoring medications and disease. Related to Other life enrichment manager (current) drug therapy She uses the hydrocodone infrequ ently. Related to group home (current) use of opiate analgesic Although she is not asymptomatic, her SLE is at least stable. She will remain on her same doses of CellCept and Plaquenil. Related to Other forms of systemic lupus erythematosus See discussion above. Related to Low back pain The right foot pain has stabilized. Again, even this seems to respond somewhat to the prednisone. Related to Complex regional pain syndrome I of right lower limb She has chronic pers istent neck and low back pain. She feels better when she is on even a low dose of prednisone. I agreed to a trial of prednisone 2.5 milligrams daily. Related to Cervicalgia She will have routin e laboratories today for monitoring medications and disease. 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 Related to Fibromyalgia The right foot sympt oms seem to have plateaued. She she has had about 80% improvement from the peak of symptoms. Again, no additional treatment was recommended. Related to Complex regional pain syndrome I of right lower limb There has been slow improvement in the pain in the right foot. She is actually satisfied with how she is doing with this right now. Related to Complex regional pain syndrome I of right lower limb She remains on a john ited dose of hydrocodone with acetaminophen. There have been no obvious side effects of that. Related to group home (current) use of opiate analgesic Her lupus is overall stable on her current regimen. I did not recommend any change in treatment. Related to Systemic lupus erythematosus Happily, she is doin g very well with her neck pain right now. Related to Cervicalgia Her Sjogren's syndro me also is stable. She will continue Restasis and other topical treatments for the dry eyes and dry mouth. Related to Sjogren's syndrome She's had a recent f lare of low back pain. There has been little improvement over 3 weeks. I encouraged her to see her spine surgeon regarding this. Related to Low back pain She will have routin e laboratories today for monitoring medications and disease. Related to Other half-way (current) drug therapy She has secondary Sj [...] this one. She did finally find any electronics research engineer was able to help her clear that that. I'm not sure if the antibiotics that she had received also played a role in that improvement. 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 Related to Other half-way (current) drug therapy We discussed other t reatments for her complex regional pain syndrome. Ultimately, agreed that she should proceed with the nerve block for treatment of this. Related to Complex regional pain syndrome I of right lower limb Clinically, her lupu s appears stable. I did not recommend any change in her medications. Related to Systemic lupus erythematosus This is being evalua augie and treated through her neurologist. Related to Dizziness She certainly does h ave symptoms of [...] monitoring medications and disease. Related to Other half-way (current) drug therapy It's difficult to sa [...] monitoring medications and disease. Related to Other half-way (current) drug therapy She has a persistent upper respiratory infection suggestive of sinusitis. She will be seeing an presser first alone. Likely the Sjogren's syndrome is playing [...] exam was last April. 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 I recommended consideration of a second opinion with a different orthopedic foot surgeon to start out with. I suggested [facility]. Related to Pain in right foot She will have routin e laboratories today for monitoring medications and disease. Related to Other life enrichment manager (current) drug therapy She has never had [...] recommended that she consider evaluation by a neuro-milanese knitting machine operator if this recently initiated trial of a [...]
--- NOTE | 2023-07-10 14:00 | CRLHL7_ITS ---
For Patients: As a result of the Century Cures Act, medical imaging exams and procedure reports are released immediately into your electronic medical record. You may view this report before your referring provider. If you have questions, please contact your health care provider. BILATERAL SCREENING MAMMOGRAM WITH COMPUTER-AIDED DETECTION TECHNIQUE: CC and MLO views were obtained. These mammographic images have been obtained using full-field digital technique. These mammographic images were interpreted with the benefit of computer-aided detection. COMPARISON FILM: 04/02/22, 02/12/21, 01/03/20. FINDINGS: There are scattered areas of fibroglandular density IMPRESSION: There is no radiographic evidence for malignancy. ASSESSMENT: BI-RADS Category 1: Negative RECOMMENDATION: Routine screening mammogram in 1 year. A lay language report of this examination will be provided to the patient. Joe Torres M.D. Diagnostic Radiologist [email or web address] DUSTIN/Dictated by: Joe Torres MD @ 07/11/2023 12:34:00 PM (Electronically Signed)
== END 2023-07-10 13:49 | disposition home or self-care (01) ==
LOC: MAMMO 13:49
PROVIDERS: PCP Internal Medicine; Visit Provider Internal Medicine
DX: Z12.31 Encounter for screening mammogram for malignant neoplasm of breast (principal)
CPT/HCPCS: 77067

== ENCOUNTER 2023-08-09 07:35 | Emergency (ER) | payer MEDICARE, SELFPAY ==
[2023-08-09] VITALS (18 sets, daily range): BP systolic 101–141; BP diastolic 64–83; PULSE 62–100; RESP 18; TEMP 36.6; O2SAT 97–100; BMI 25.8
--- NOTE | 2023-08-09 08:13 | ED_ITS ---
HPI - General Adult General Time Seen by Provider: 08:14 Date Seen: 08/09/23 Chief complaint: Anxiety Stated complaint: lupus, tingling, pain left arm Time Seen by Provider: 08/09/23 08:13 Source: patient and RN notes reviewed Mode of arrival: ambulatory Limitations: no limitations History of Present Illness HPI narrative: This 53-year-old female is coming to the ER ambulatory accompanied by her . She is feeling not right. Her head just feels funny. She admits there was maybe some numbness and tingling in her mouth starting with these symptoms a few days ago. She feels racy inside, has felt that way with prednisone before but it is worse. She just feels foggy, difficulty maybe finding words. No headache, thought maybe she was having prodromal migraine symptoms but the headache never developed. No visual changes. Her left arm and hand feel numb and tingly but no incoordination. She recently had COVID about 4 weeks ago, had some lingering fatigue with this, some intermittent shortness of breath. She was given a course of prednisone. She also has underlying lupus. With the lupus she is taking courses of prednisone in the past and never felt like this. She admits she is feeling very anxious. She has no pain complaints, specifically no neck pain, no pain going into left arm, no chest pain, no current headache. She has history of GERD, lupus, Sjogren's, prothrombin gene mutation activated protein-C resistance. She has complex regional pain syndrome and fibromyalgia, history of a splenic infarct in 2000. Current medications i nclude calcium, vitamin-D, hydroxychloroquine, lactobacillus, mycophenolate, trazodone, zolpidem. Related Data Home Medications Medication Instructions Recorded Confirmed hydroxychloroquine 200 mg tablet 200 mg PO BID 01/21/22 08/09/23 (Plaquenil) calcium carbonate 500 mg calcium 1,000 mg PO QDAY 01/30/22 07/30/23 (1,250 mg) tablet ergocalciferol (vitamin D2) 10 mcg 10 mcg PO DAILY 06/13/22 08/09/23 (400 unit) tablet Lactobacillus acidophilus PO QDAY 06/14/22 07/30/23 [Probiotic Acidophilus] mycophenolate mofetil 500 mg tablet 1,500 mg PO BID 06/14/22 08/09/23 Previous Rx's Medication Instructions Recorded trazodone 50 mg tablet 50 mg PO QHS Insomnia #180 tabs 12/20/22 zolpidem 10 mg tablet 10 mg PO HS PRN insomnia #30 tabs 05/20/23 lorazepam 1 mg tablet 1 mg PO TID PRN #10 tabs 08/09/23 Allergies Allergy/AdvReac Type Severity Reaction Status Date / Time No Known Drug Allergies Allergy Verified 07/30/23 14:22 Review of Systems Status of ROS: Reports: 6 or more systems reviewed and unremarkable except as noted in History and below [facility] Medical History Rib fractures ?S22.49XA - Multiple fractures of ribs, unspecified side, initial encounter for closed fracture (ICD-10) Insomnia ?G47.00 - Insomnia, unspecified (ICD-10) GERD (gastroesophageal reflux disease) ?K21.9 - Gastro-esophageal reflux disease without esophagitis (ICD-10) Systemic lupus erythematosus ?M32.9 - Systemic lupus erythematosus, unspecified (ICD-10) Sjogren's syndrome ?M35.00 - Sjogren syndrome, unspecified (ICD-10) Prothrombin gene mutation ?D68.52 - Prothrombin gene mutation (ICD-10) Osteopenia ?M85.80 - Other specified disorders of bone density and structure, unspecified site (ICD-10) Fibromyalgia ?M79.7 - Fibromyalgia (ICD-10) Complex regional pain syndrome Claustrophobia ?F40.240 - Claustrophobia (ICD-10) Activated protein C resistance ?D68.51 - Activated protein C resistance (ICD-10) 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 - Infarction of spleen (ICD-10) Surgical History History of hysterectomy (~2009) ?Z90.710 - Acquired absence of both cervix and uterus (ICD-10) History of foot surgery ?Z98.890 - Other specified postprocedural states (ICD-10) History of colonoscopy (03/30/20) ?Z98.890 - Other specified postprocedural states (ICD-10) History of cervical spinal surgery ?Z98.890 - Other specified postprocedural states (ICD-10) History of bilateral ligation of fallopian tubes ?Z98.51 - Tubal ligation status (ICD-10) History of appendectomy ?Z90.49 - Acquired absence of other specified parts of digestive tract (ICD- 10) Social History Narrative: Disabled How many days of moderate to strenuous exercise, like a brisk walk, did you do in the last 7 days: 2 Smoking Status: Former smoker Do you use any of these nicotine containing products: None How often do you have a drink containing alcohol: monthly or less Alcohol type: beer, wine and hard liquor How many standard drinks containing alcohol do you have on a typical day: 1 or 2 How often do you have six or more drinks on one occasion: Never AUDIT-C Alcohol total score: 1 Non-prescribed substance use: denies use Caffeine: Yes (COFFEE) Are you now , , , , never or living with a partner: Social isolation score (0-1 are the most socially isolated patients): 1 Are you using contraception or practicing any form of control: No Exam Const: Vital Signs, click to edit/add: Vital Signs - 24 hr 08/09/23 07:45 08/09/23 08:50 08/09/23 09:02 Temperature 97.9 F Pulse Rate 69 Pulse Rate [Right Pulse Oximeter] 100 Respiratory Rate 18 Blood Pressure 125/77 Blood Pressure [Ri ght Upper Arm] 141/83 H Pulse Oximetry 100 99 [facility] 08/09/23 09:03 08/09/23 09:15 08/09/23 09:30 Temperature Pulse Rate 67 67 69 Pulse Rate [Right Pulse Oximeter] Respiratory Rate Blood Pressure Blood Pressure [Ri ght Upper Arm] Pulse Oximetry 100 99 [facility] 08/09/23 09:45 08/09/23 10:00 08/09/23 10:02 Temperature Pulse Rate 69 74 68 Pulse Rate [Right Pulse Oximeter] Respiratory Rate Blood Pressure 116/80 Blood Pressure [Ri ght Upper Arm] Pulse Oximetry 98 97 100 [facility] 08/09/23 10:03 08/09/23 10:26 08/09/23 10:27 Temperature Pulse Rate 67 66 67 Pulse Rate [Right Pulse Oximeter] Respiratory Rate Blood Pressure 132/77 Blood Pressure [Ri ght Upper Arm] Pulse Oximetry 100 100 99 Oxygen Delivery Me thod 08/09/23 10:30 08/09/23 10:45 08/09/23 11:00 Temperature Pulse Rate 70 63 63 Pulse Rate [Right Pulse Oximeter] Respiratory Rate Blood Pressure Blood Pressure [Ri ght Upper Arm] Pulse Oximetry 99 99 99 Oxygen Delivery Me [facility] 08/09/23 11:01 Temperature Pulse Rate 62 Pulse Rate [Right Pulse Oximeter] Respiratory Rate Blood Pressure 101/64 Blood Pressure [Ri ght Upper Arm] Pulse Oximetry 98 Oxygen Delivery Me [facility]od This 53-year-old female is alert, interactive, no apparent distress. Does seem mildly anxious, is speaking a lot but would not say she has pressured speech. Her thought content is normal. Pupils equal round reactive to light extraocular muscles intact, cottages get gaze. Symmetrical facial function, oropharynx with normal mucosa no exudates or erythema tongue protrudes midline. Speech is currently normal and succinct. Neck is supple, no cervical adenopathy, no thyromegaly masses or nodules, no jugular venous distension. Sits up easily, lungs are clear, good air entry, no wheezing or crackles. CV regular rate and rhythm, no murmur, normal S1-S2, no S3-S4. Abdomen is soft, nontender, nondistended. She has normal light touch sensation throughout, strength is 5/5 and symmetric throughout upper extremities and lower extremities. She has normal rapid alternating finger movements, no arm drift, no baseline tremor. She was ambulatory into the ED of her own accord. Documenting provider has reviewed patient's vital signs: yes Course Course ED Course: This patient certainly could have neuropsychiatric symptoms with recent COVID and combine use of prednisone. She has tolerated prednisone in the past, does endorse that she had some of the racing symptoms that she is feeling with prednisone in the past. I do think given her genetic predisposition and recent COVID, complaint of left arm numbness tingling, will start with a head CT, talk to Neurology at [place]. We will get a full complement of labs and look at full cardiopulmonary possibilities. Will get a TSH as well. She certainly could have electrolyte disturbances. She is hemodynamically intact at this time. Will also look at a chest x-ray, consider thromboembolic disease in her situation. Reevaluation(s) Time of Reevaluation #1: 10:00 Reevaluation #1: Have reviewed with him her normal head CT in the conversation with her neurologist. Her labs are all reassuring minus a mildly elevated D-dimer. She has had elevated D-dimer in the past. We have discussed the elevated D-dimer in the setting of COVID and her potential for hypercoagulability. She will proceed with chest CT PE protocol just to ensure no pulmonary emboli. We will try hydroxyzine to help with her sense of racing. Time of Reevaluation #2: 11:13 Reevaluation #2: Patient really has felt no change with the Vistaril. She is talking about her mouth feeling dry. We discussed that she has Sjogren's, has not had problems with dry mouth before but this certainly can be a symptom of it. We also discussed it could be medication related, COVID related, possible multifactorial. We discussed having her try lozenges or sipping on fluids frequently. I am going to give her a few tablets of Ativan for the anxiety type feeling, racy type feeling that she is having. I do think that this is probably medication related to the prednisone. She is done with the prednisone. Consultations Consultation #1: Have spoken with stroke neurologist Dr. Singh from [place]. Confirmed with the patient that she is having a pins and needles sensation in the left arm, not numbness. Her symptoms have been present couple days. He believes that if the CT is negative, she has pins and needle sensation which would represent more of peripheral nerve, no advancement of symptoms over couple days, that this is not likely to be any central process and more likely to be medication side effect. Thus, if head CT is negative, no further [employer] workup is indicated. Time: 09:00 Vital Signs Vital signs: Initial Vital Signs Temperature 97.9 F 08/09/23 07:45 Temperature Source Temporal Artery Scan 08/09/23 07:45 Pulse Rate 100 08/09/23 07:45 Respiratory Rate 18 08/09/23 07:45 Blood Pressure 141/83 H 08/09/23 07:45 Blood Pressure Mean 102 08/09/23 07:45 Blood Pressure Position Sitting 08/09/23 07:45 Pulse Oximetry 100 08/09/23 07:45 Oxygen Delivery Method Room Air 08/09/23 07:45 Vital Signs Temperature 97.9 F 08/09/23 07:45 Pulse Rate 100 08/09/23 07:45 Respiratory Rate 18 08/09/23 07:45 Blood Pressure 141/83 H 08/09/23 07:45 Pulse Oximetry 100 08/09/23 07:45 Oxygen Delivery Method Room Air 08/09/23 07:45 Temperature 97.9 F 08/09/23 07:45 Pulse Rate 62 08/09/23 11:01 Respiratory Rate 18 08/09/23 07:45 Blood Pressure 101/64 08/09/23 11:01 Pulse Oximetry 98 08/09/23 11:01 Oxygen Delivery Method Room Air 08/09/23 07:45 Medications Administered Medications: Discontinued Medications Generic Name Dose Route Start Last Admin Trade Name Freq PRN Reason Stop Dose Admin Hydroxyzine Pamoate 50 mg 08/09/23 10:03 08/09/23 10:07 Hydroxyzine Pamoate 25 Mg Capsule PO 08/09/23 10:04 50 mg ONCE ONE Administration Medical Decision Making Lab Data Lab results reviewed: Yes I reviewed the patient's lab results Labs: Lab Results 08/09/23 08/09/23 Range/Units 08:20 08:45 WBC 8.50 (4.50-11.00) K/uL RBC 5.02 (4.00-5.20) m/uL Hgb 14.5 (12.0-16.0) gm/dL Hct 45.1 (33.0-51.0) % MCV 90 (80-100) fL MCH 29 (26-34) pg MCHC 32 (32-36) gm/dL RDW Coeff of Abdirahman 12.7 (11.5-15.5) % Plt Count 358 (140-440) K/uL Neut % (Auto) 57.8 (42.0-72.0) % Lymph % (Auto) 30.7 (20-44) % [place] % (Auto) 9.9 (0.0-11.0) % Eos % (Auto) 0.7 (0.0-7.0) % Baso % (Auto) 0.4 (0.0-3.0) % Neut # (Auto) 4.92 (1.7-7.0) K/uL Lymph # (Auto) 2.61 (0.90-2.90) K/uL [facility] [place] # (Auto) 0.80 (0.00-0.90) K/UL Eos # (Auto) 0.06 (0.00-0.50) K/uL Baso # (Auto) 0.03 (0.00-0.30) K/uL Abs Immat Gran (auto) 0.04 (0.00-0.30) K/uL Imm/Tot Granulo (auto) 0.5 % D-Dimer Quant (PE/DVT) 0.69 H (0.00-0.50) ug/ml VBG pH 7.322 (7.32-7.43) VBG pCO2 59 H (40-50) mmHG VBG pO2 21.4 L (25-47) mmHG VBG HCO3 31 H (21-28) mmol/L Sodium 142 (135-149) mmol/L Potassium 4.4 (3.6-5.1) mmol/L Chloride 104 (96-114) mmol/L Carbon Dioxide 30 (20-32) mmol/L Anion Gap 8 (7-15) mEq/L BUN 16 (7-30) mg/dL Creatinine 0.6 (0.5-1.5) mg/dL Estimated Creat Clear 96.45 Estimated GFR 107 ml/min Glucose 87 (60-115) mg/dL Calcium 9.6 (8.4-10.6) mg/dL Magnesium 2.3 (1.5-2.6) mg/dL Total Bilirubin 0.5 (0.1-1.5) mg/dL AST 23 (12-35) U/L ALT 19 (4-35) U/L Alkaline Phosphatase 52 (40-150) U/L Troponin I < 0.01 L (0.01-0.04) ng/mL C-Reactive Protein 0.6 (0.5-1.0) mg/dL NT-Pro-B Natriuret Pep 79 pg/mL Total Protein 8.0 (6.0-8.3) g/dL Albumin 4.6 (3.3-5.0) g/dL TSH 1.720 (0.270-4.200) uIU/mL SARS-CoV-2 Ag (Rapid) Negative (Negative) Imaging Data CT scan - head: Attestation: I have reviewed the pertinent imaging results. Radiologist's impression: Patient: CHARO PRYOR Facility:?[facility] Patient ID:?[id number] Site Patient ID:?[id number]. Site :?1970 Study:?CT Head W/O-08/09/2023 8:44:20 AM Ordering Physician:?Niall Urrutia Final Report: INDICATION: Left arm numbness and tingling. History of recent COVID infection. TECHNIQUE: CT of the head without contrast. Coronal and sagittal reformats are included. COMPARISON: Sinus CT from 08/22/2021. FINDINGS: No CT evidence of acute cortical infarct. No loss of mayberry white matter differentiation. No hyperdense vessels to suggest intracranial thrombus. No acute intracranial hemorrhage. No mass effect or midline shift. No hydrocephalus or extra-axial collections. Curvilinear calcifications within the left superior cerebellar hemisphere, which could be physiologic or dystrophic from prior ischemic/inflammatory process. Stable. No acute osseous abnormalities. Polypoid mucosal thickening right maxillary sinus. Paranasal sinuses and mastoid air cells are otherwise clear. Normal soft tissues. IMPRESSION: IMPRESSION:1. No CT evidence of acute cortical infarct. No acute intracranial hemorrhage. No other acute intracranial findings. Please note that all CT scans at this facility use dose modulation, iterative reconstruction, and/or weight-based dosing when appropriate to reduce radiation dose to as low as reasonably achievable. Dictated by Omar Chapman MD @ 08/09/2023 8:57:26 AM (Electronic Signature) Chest x-ray: Attestation: I have reviewed the pertinent imaging results. My impression: I see no acute pathology on my preliminary review of this chest x-ray. Radiologist's impression: Patient: CHAROLEXI PRYOR Facility:?[facility] Patient ID:?[id number] Site Patient ID:?[id number]. Site :?1970 Study:?XRay Chest 2 VIEW-08/09/2023 8:43:44 AM Ordering Physician:?Niall Urrutia Final Report: INDICATION: Intermittent shortness of breath, recent Covid COMPARISON: 04/23/2023 TECHNIQUE: PA and lateral 2 view chest radiograph. FINDINGS: The lungs are well expanded. No focal consolidations. No pulmonary edema. No pleural effusion. No pneumothorax. No pneumomediastinum. Normal cardiomediastinal silhouette. Bones: Cervical fusion hardware partially seen. IMPRESSION: Lungs are clear. Normal chest radiographs. Dictated by Teresa Duran MD @ 08/09/2023 9:04:12 AM (Electronic Signature) CT scan - chest: Attestation: I have reviewed the pertinent imaging results. Radiologist's impression: Patient: CHARO PRYOR Facility:?[facility] Patient ID:?[id number] Site Patient ID:?[id number]. Site :?1970 Study:?CT Chest Angio PE W/ISOVUE 370 95CC-08/09/2023 10:25:40 AM Ordering Physician:?Niall Urrutia Final Report: INDICATION: Shortness of breath. Elevated D-dimer. Recent COVID-19. TECHNIQUE: Multiple axial images were obtained from the apices to the diaphragm after administration of 95 mL Isovue-370 intravenously. Sagittal and coronal re- formatted images were obtained. COMPARISON: 07/08/[address] FINDINGS: There is atelectasis in the dependent portion of the lungs. The lungs otherwise are clear. There is no suspicious pulmonary nodule. There is no pleural effusion. There is no axillary, mediastinal or hilar adenopathy. There is no pu lmonary artery embolism. There is a 2.6 cm left kidney cyst, unchanged from the previous study. IMPRESSION: No acute abnormality. No pulmonary artery embolism. Please note that all CT scans at this facility use dose modulation, iterative reconstruction, and/or weight-based dosing when appropriate to reduce radiation dose to as low as reasonably achievable. Dictated by Leo Mac MD @ 08/09/2023 10:49:37 AM (Electronic Signature) ECG Data Attestation: I personally reviewed and interpreted this ECG as follows: ( Normal sinus rhythm, 67 beats per minute. No evidence of any ischemia. QT corrected 418 milliseconds.) Prior ECG tracings: not available for review Discharge Plan Discharge Clinical Impression: Numbness and tingling of left upper extremity Medication adverse effect Qualifiers: Encounter type: initial encounter Qualified Code(s): T50.905A - Adverse effect of unspecified drugs, medicaments and biological substances, initial encounter Patient Disposition: Home, Self-Care Condition: Stable Instructions: Paresthesia (ED) Additional Instructions: Need to follow-up with your primary care provider as soon as possible next week. Need to review your current symptoms, hopefully they will improve as you are off the prednisone. If your mouth continues to be dry, this could be manifestation of Sjogren's. I do suspect that the prednisone coupled with a recent COVID is the cause of some of your symptoms you are feeling, specially they anxiety/ racing feeling. We will have you try some Ativan, be aware that you should not drive or operate machinery while on this. This can be sedating, do not recommend alcohol use with concomitant use of this medicine. This medicine can be addictive if used long-term. Activity Level: Activity as Tolerated Prescriptions: New lorazepam 1 mg tablet 1 mg PO TID PRNQty: 10 0RF No Action ergocalciferol (vitamin D2) 10 mcg (400 unit) tablet 10 mcg PO DAILY calcium carbonate 500 mg calcium (1,250 mg) tablet 1,000 mg PO QDAY mycophenolate mofetil 500 mg tablet 1,500 mg PO BID hydroxychloroquine [Plaquenil] 200 mg tablet 200 mg PO BID Lactobacillus acidophilus [Probiotic Acidophilus] PO QDAY trazodone 50 mg tablet 50 mg PO QHS Qty: 180 1RF zolpidem 10 mg tablet 10 mg PO HS PRN (Reason: insomnia) Qty: 30 0RF Follow Up/Referrals: Alfredo Lozano MD [Primary Care Provider] - Stand Alone Forms: [employer] Info Instructions
--- NOTE | 2023-08-09 08:23 | CRLHL7_ITS ---
For Patients: As a result of the Cures Act, medical imaging exams and procedure reports are released immediately into your electronic medical record. You may view this report before your referring provider. If you have questions, please contact your health care provider. INDICATION: Intermittent shortness of breath, recent Covid COMPARISON: 04/23/2023 TECHNIQUE: PA and lateral 2 view chest radiograph. FINDINGS: The lungs are well expanded. No focal consolidations. No pulmonary edema. No pleural effusion. No pneumothorax. No pneumomediastinum. Normal cardiomediastinal silhouette. Bones: Cervical fusion hardware partially seen. IMPRESSION: Lungs are clear. Normal chest radiographs. Dictated by eTresa Duran MD @ 08/09/2023 9:04:12 AM (Electronically Signed)
--- NOTE | 2023-08-09 08:23 | CRLHL7_ITS ---
For Patients: As a result of the Cures Act, medical imaging exams and procedure reports are released immediately into your electronic medical record. You may view this report before your referring provider. If you have questions, please contact your health care provider. INDICATION: Left arm numbness and tingling. History of recent COVID infection. TECHNIQUE: CT of the head without contrast. Coronal and sagittal reformats are included. COMPARISON: Sinus CT from 08/22/2021. FINDINGS: No CT evidence of acute cortical infarct. No loss of mayberry white matter differentiation. No hyperdense vessels to suggest intracranial thrombus. No acute intracranial hemorrhage. No mass effect or midline shift. No hydrocephalus or extra-axial collections. Curvilinear calcifications within the left superior cerebellar hemisphere, which could be physiologic or dystrophic from prior ischemic/inflammatory process. Stable. No acute osseous abnormalities. Polypoid mucosal thickening right maxillary sinus. Paranasal sinuses and mastoid air cells are otherwise clear. Normal soft tissues. IMPRESSION: IMPRESSION:1. No CT evidence of acute cortical infarct. No acute intracranial hemorrhage. No other acute intracranial findings. Please note that all CT scans at this facility use dose modulation, iterative reconstruction, and/or weight-based dosing when appropriate to reduce radiation dose to as low as reasonably achievable. Dictated by Omar Chapman MD @ 08/09/2023 8:57:26 AM (Electronically Signed)
[2023-08-09 08:59] LABS: HCO3 VBG 31 mmol/L (21-28); PCO2 VBG 59 mmHG (40-50); PO2 VBG 21.4 mmHG (25-47); pH VBG 7.322 (7.32-7.43)
[2023-08-09 09:01] LABS: Basophils Absolute Auto 0.03 K/uL (0.00-0.30); Basophils Percent Auto 0.4 % (0.0-3.0); Eosinophils Absolute Auto 0.06 K/uL (0.00-0.50); Eosinophils Percent Auto 0.7 % (0.0-7.0); Hematocrit 45.1 % (33.0-51.0); Hemoglobin* 14.5 gm/dL (12.0-16.0); Immature Granulocytes Abs Auto 0.04 K/uL (0.00-0.30); Immature Granulocytes Pct Auto 0.5 %; Lymphocytes Absolute Auto 2.61 K/uL (0.90-2.90); Lymphocytes Percent Auto 30.7 % (20-44); Mean Corpuscular HGB Conc 32 gm/dL (32-36); Mean Corpuscular Hemoglobin 29 pg (26-34); Mean Corpuscular Volume 90 fL (80-100); Monocytes Percent Auto 9.9 % (0.0-11.0); Neutrophils Absolute Auto 4.92 K/uL (1.7-7.0); Neutrophils Percent Auto 57.8 % (42.0-72.0); Platelet Count* 358 K/uL (140-440); RDW Coefficient of Variation % 12.7 % (11.5-15.5); Red Blood Count 5.02 m/uL (4.00-5.20)
[2023-08-09 09:04] LABS: Slide Review Reflex No
[2023-08-09 09:05] LABS: SARS Antigen* Negative (Negative)
[2023-08-09 09:23] LABS: D Dimer Quantitative* 0.69 ug/ml (0.00-0.50)
[2023-08-09 09:32] LABS: Albumin* 4.6 g/dL (3.3-5.0); Chloride* 104 mmol/L (96-114); Sodium* 142 mmol/L (135-149)
[2023-08-09 09:33] LABS: Potassium* 4.4 mmol/L (3.6-5.1)
[2023-08-09 09:35] LABS: Creatinine* 0.6 mg/dL (0.5-1.5); Est. Creatinine Clearance* 96.45; Estimated Glomerular Filt Rate 107 ml/min
[2023-08-09 09:36] LABS: Alanine Aminotransferase* 19 U/L (4-35); Alkaline Phosphatase* 52 U/L (40-150); Anion Gap 8 mEq/L (7-15); Aspartate Amino Transferase* 23 U/L (12-35); Bilirubin Total* 0.5 mg/dL (0.1-1.5); Blood Urea Nitrogen* 16 mg/dL (7-30); Calcium* 9.6 mg/dL (8.4-10.6); Carbon Dioxide* 30 mmol/L (20-32); Glucose* 87 mg/dL (60-115); Magnesium* 2.3 mg/dL (1.5-2.6)
[2023-08-09 09:38] LABS: C Reactive Protein* 0.6 mg/dL (0.5-1.0)
[2023-08-09 09:54] LABS: NT Pro B Type NatriureticPept* 79 pg/mL; Troponin I* < 0.01 ng/mL (0.01-0.04)
--- NOTE | 2023-08-09 09:59 | CRLHL7_ITS ---
For Patients: As a result of the Century Cures Act, medical imaging exams and procedure reports are released immediately into your electronic medical record. You may view this report before your referring provider. If you have questions, please contact your health care provider. INDICATION: Shortness of breath. Elevated D-dimer. Recent COVID-19. TECHNIQUE: Multiple axial images were obtained from the apices to the diaphragm after administration of 95 mL Isovue-370 intravenously. Sagittal and coronal re-formatted images were obtained. COMPARISON: 07/08/[address] FINDINGS: There is atelectasis in the dependent portion of the lungs. The lungs otherwise are clear. There is no suspicious pulmonary nodule. There is no pleural effusion. There is no axillary, mediastinal or hilar adenopathy. There is no pulmonary artery embolism. There is a 2.6 cm left kidney cyst, unchanged from the previous study. IMPRESSION: No acute abnormality. No pulmonary artery embolism. Please note that all CT scans at this facility use dose modulation, iterative reconstruction, and/or weight-based dosing when appropriate to reduce radiation dose to as low as reasonably achievable. Dictated by Leo Mac MD @ 08/09/2023 10:49:37 AM (Electronically Signed)
[2023-08-09] MEDS: hydrOXYzine pamoate 25 MG CAPSULE 50 MG PO (10:07)
== END 2023-08-09 11:34 | disposition home or self-care (01) ==
PROVIDERS: Emergency Provider Family Medicine; PCP Internal Medicine
DX: R20.2 Paresthesia of skin (principal); T50.905A Adverse effect of unspecified drugs, medicaments and biological substances, initial encounter
CPT/HCPCS: 36415; 70450; 71046; 71275; 80053; 82803; 83735; 83880; 84443; 84484; 85025; 85379; 86140; 87426; 93005; 94761; 99285; A9270; Q9967

== ENCOUNTER 2023-08-13 09:38 | Outpatient (REF) | payer MEDICARE, SELFPAY ==
[2023-08-13 10:14] LABS: Appearance Urine Clear (Clear); Basophils Absolute Auto 0.03 K/uL (0.00-0.30); Basophils Percent Auto 0.4 % (0.0-3.0); Bilirubin Urine Negative (Negative); Blood Urine Negative (Negative); Color Urine Yellow (Yellow); Eosinophils Absolute Auto 0.05 K/uL (0.00-0.50); Eosinophils Percent Auto 0.7 % (0.0-7.0); Glucose Urine Negative (Negative); Hematocrit 43.7 % (33.0-51.0); Hemoglobin* 14.2 gm/dL (12.0-16.0); Immature Granulocytes Abs Auto 0.01 K/uL (0.00-0.30); Immature Granulocytes Pct Auto 0.1 %; Ketones Urine Negative (Negative); Leukocyte Esterase Urine Negative (Negative); Lymphocytes Absolute Auto 2.05 K/uL (0.90-2.90); Lymphocytes Percent Auto 30.1 % (20-44); Mean Corpuscular HGB Conc 33 gm/dL (32-36); Mean Corpuscular Hemoglobin 29 pg (26-34); Mean Corpuscular Volume 90 fL (80-100); Monocytes Percent Auto 9.1 % (0.0-11.0); Neutrophils Absolute Auto 4.05 K/uL (1.7-7.0); Neutrophils Percent Auto 59.6 % (42.0-72.0); Nitrite Urine Negative (Negative); Platelet Count* 315 K/uL (140-440); Protein Urine Negative (Negative); RDW Coefficient of Variation % 12.9 % (11.5-15.5); Red Blood Count 4.85 m/uL (4.00-5.20); Specific Gravity Urine 1.015 (1.000-1.030); Urobilinogen Urine 0.2 (0.2-1.0); White Blood Count* 6.81 K/uL (4.50-11.00); pH Urine 5.5 (5.0-8.5)
[2023-08-13 10:19] LABS: Slide Review Reflex No
[2023-08-13 10:24] LABS: C Reactive Protein* 0.5 mg/dL (0.5-1.0)
[2023-08-13 11:30] LABS: Bacteria Urine Few; RBC Urine 0-2 (0-2); Squamous Epithelial Cell Urine Few (None-Few); WBC Urine 0-2 (0-5)
[2023-08-13 11:38] LABS: Erythrocyte SedimentationRate* 5 mm/hr (2-20)
[2023-08-15 03:12] LABS: Complement Component 3 134 mg/dL (90-180); Complement Component 4 20 mg/dL (10-40)
== END 2023-08-13 09:39 | disposition home or self-care (01) ==
LOC: NPINS 09:38
PROVIDERS: PCP Internal Medicine; Visit Provider Internal Medicine Rheumatology
DX: M32.8 Other forms of systemic lupus erythematosus (principal); G43.909 Migraine, unspecified, not intractable, without status migrainosus; R53.83 Other fatigue; D68.51 Activated protein C resistance
CPT/HCPCS: 81001; 85025; 85651; 86140; 86160; 87086

== ENCOUNTER 2023-10-03 09:09 | Outpatient (CLI) | payer MEDICARE, SELFPAY ==
--- NOTE | 2023-10-03 09:15 | MR_ITS ---
Patient: CHARO PRYOR Facility:?[facility] Patient ID:?[id number] Site Patient ID:?[id number]. Site :?1970 Study:?MRI-Head W/ and W/O Cont 15 CC DOTAREM IAC'S-10/03/2023 10:46:37 AM Ordering Physician:?EVAN WELLS Final Report: INDICATION: Dizziness. Headaches. TECHNIQUE: Multiplanar multisequence MR imaging of the brain and internal auditory canals prior to and following intravenous contrast. COMPARISON: CT brain 08/09/2023. FINDINGS: The ventricles and sulci are within normal limits for patient age. No mass effect midline shift. Few punctate FLAIR hyperintensities in the supratentorial white matter, nonspecific. No intracranial hemorrhage or pathologic extra-axial fluid collection. No diffusion restriction to suggest acute infarction. No pathologic intracranial enhancement. No mass or pathologic enhancement within the internal auditory canals or cerebellopontine angles. No concerning signal abnormalities in the inner ear structures. No vascular loop within the internal auditory canals. The major arterial flow voids of the skullbase are preserved. The globes are symmetric. [id number] right maxillary and ethmoid sinus mucosal thickening. Minimal mastoid fluid bilaterally. IMPRESSION: 1. No acute intracranial abnormality. 2. No mass or pathologic enhancement within the internal auditory canals or cerebellopontine angles. 3. Few punctate FLAIR hyperintensities in the supratentorial white matter are nonspecific, though most typical for sequelae of minimal chronic microvascular ischemic changes or migraine headaches. Dictated by Mustapha Andino MD @ 10/03/2023 1:17:47 PM Signed by:?Mustapha Andino MD @10/03/2023 1:17:47 PM (Electronic Signature)
== END 2023-10-03 09:10 | disposition home or self-care (01) ==
LOC: MRI 09:10
PROVIDERS: PCP Internal Medicine; Visit Provider Otolaryngology
DX: R42 Dizziness and giddiness (principal); R51.9 Headache, unspecified
CPT/HCPCS: 70553; A9575

== ENCOUNTER 2023-11-21 10:39 | Day surgery (SDC) | payer MEDICARE, SELFPAY ==
[2023-11-21] VITALS (12 sets, daily range): BP systolic 116–147; BP diastolic 72–110; PULSE 63–90; RESP 16–20; TEMP 36.3–36.7; O2SAT 95–100; BMI 26.7
--- OUTSIDE RECORDS SUMMARY | 2023-11-21 10:44 | XMS_ITS | Clinical Summary ---
Author Name Unknown Organization [facility] Address [address] [place] [address] Care Team Providers Care Senior Architect/Design Manager Name Role Phone Unavailable Primary Care Provider Unavailabl e Allergies Active Allergy Reactions Criticality Noted Date Comments Alendronate 08/25/2023 Sumatriptan Palpitations 08/25/2023 Medications Medication Sig Dispensed Refills Start Date End Date Status mycophenolate mofetil (CELLCEPT) 500 mg oral tablet TAKE 3 TABLETS BY MOUTH EVERY MORNING AND 2 TABLETS EVERY EVENING 05/29/2023 Active hydroxychloroquine (PLAQUENIL) 200 mg oral tablet Take 1 tablet (200 mg) by mouth Twice a Day. 06/18/2023 Active HYDROcodone-acetamin ophen (NORCO) 5-325 mg oral tablet TAKE 1 TABLET BY MOUTH TWICE A DAY NEEDED3 08/15 PER MD 08/18/2023 Active zolpidem (AMBIEN) 10 mg oral tablet TAKE 1 TABLET BY MOUTH EVERY DAY AT BEDTIME NEEDED FOR INSOMNIA 08/18/2023 Active divalproex (DEPAKOTE) 500 mg oral delayed released tablet 1 TAB EVERY 8 HRS X 48 HRS- if HEADACHE IS BETTER CAN DISCONTINUE- CALL US WITH AN UPDATE ON FRIDAY 6 tablet 08/25/2023 Active divalproex (DEPAKOTE DR) 250 mg oral 12-hour delayed-release tablet Take 1 tablet (250 mg) by mouth twice a day. 2 tablet 08/27/2023 Active Active Problems Problem Noted Date Diagnosed Date Intractable headache, unspec ified chronicity pattern, unspecified headache type 08/25/2023 Immunosuppression 08/25/2023 Encounters Date Type Department Care Team Description 08/25/2023 9:00 AM PRINTER'S ASSISTANT Office Visit [facility] [address] [place] [address] Kinjal Lee MD Intractable headache, unspecified chronicity pattern, unspecified headache type (Primary Dx); Immunosuppression (HCC) from Last 3 Months Social History Tobacco Use Types Packs/Day Years Used Date Smoking Tobacco: Former Cigarettes Smokeless Tobacco: Never Tobacco Cessation:Counseling Given: Not Answered Alcohol Use Standard Drinks/Week Comments Not Currently 0 (1 standard drink = 0.6 oz pur e alcohol) 2 per month Sex and Gender Information Value Date Recorded Sex Assigned at Not on file Gender Identity Not on file Sexual Orientation Not on file Plan of Treatment Health Maintenance Due Date Last Done Comments Colonoscopy 1969 Hepatitis C Screening 1969 Lipid Screening 1970 Medicare Wellness Visit 1970 Pap Smear 1969 Anxiety Screening (SKYE-2) 1970 Depression Assessment (PHQ-2) 1970 Pneumococcal <65 (1 of 2 - PCV) 1975 Adult Tetanus Booster 02/10/1988 Zoster Vaccine (1 of 2) 02/10/1988 Mammogram Screening 09/17/2018 09/17/2016, 04/24/2015, 02/08/2014, Additional history exists Yearly Review of HCD 2019 COVID-19 Vaccine ( - 2022-2 4 season) 2023 11/24/2021, 05/28/2021, 10/05/2020 Influenza Vaccine (Season Ended) 2024 06/08/20 20 Procedures Procedure Name Priority Date/Time Associated Diagnosis Comments MAMMO DIGITAL SCREENING BI Routine 09/17/2016 9:49 AM PRINTER'S ASSISTANT from Last 3 Months or Most Recently Relevant to Health Maintenance
--- OUTSIDE RECORDS SUMMARY | 2023-11-21 10:44 | XMS_ITS | Encounter Summary ---
Author Name Unknown Organization [facility] Address [address] [place] [id number] Care Team Providers Care Home Economist Consumer Service Name Role Phone Unavailable Primary Care Provider Unavailabl e Reason for Visit * Reason Comments Other Extreme pain behind eyes, dizzy light and sound sensitivity Encounter Details Date Type Department Care Team (Late st Contact Info) Description 08/25/2023 9:00 AM WEBSPHERE MESSAGE BROKER DEVELOPER Office Visit [facility] [address] [place] [phone] Kinjal Lee MD [address] [place], [place] [address] Intractable headache, unspecified chronicity pattern, unspecified headache type (Primary Dx); Immunosuppression (HCC) Social History Tobacco Use Types Packs/Day Years [...] on file Sexual Orientation Not on file documented as of this encounter Progress Notes * Kinjal Lee MD - 08/25/2023 9:00 AM CST Nithya Yost is a 53 y.o.femalewho presents to [facility] for evaluation regarding Other (Extreme pain behind eyes, dizzy light and sound sensitivity ) HPI: She is a 53 years old presenting for evaluation regarding Ongoing headaches for the past 3 weeks. Patient had COVID-19 infection 5 weeks ago during that time she was treated with prednisone. She has history of lupus followed by rheumatology. The day after being off the prednisone patient started tohave pressure behind the eyes, heightened light and sound sensitivity. Throbbing sensation. Dizzy feeling feeling like a migraine. Needs to be in dark room/pounding sensation./Head is on fire any movement makes it worse. She also has sensation of tingling sensation involving the tongue left face, arm and 1 episode into the left leg. Other associated comorbidities history of protein C deficiency /splenic infarcts used to be on anticoagulation of blood thinners for the last 1 and half week. Reviewed [facility] clinic records. She was in the ED 08/09/2023 she presented with not feeling right side finding numbness and tingling in her mouth she feels racing side has felt that way with prednisone before but it is worse. [place] foggy difficulty finding words. Left arm and numb and tingling she had COVID 4 weeks prior lingering fatigue intermittent shortness of breath she was given short course of prednisone. She is feeling very anxious. Other associated comorbidities protein C resistance, prothrombin gene mutation, lupus It was suspected prednisone coupled with recent COVID-19 infection is the cause of some of the symptoms. Fibromyalgia ED course patient could have neuropsychiatric symptoms with recent COVID 90/combination use of prednisone head CT no infarct. consulted . She was given hydroxyzine TSH normal AST/ALT normal CRP 26 normal white count normal sodium The following portions of the chart were reviewed this encounter and updated as appropriate: Tobacco Allergies Meds Problems Med Hx Surg Hx Fam Hx Current Outpatient Medications Medication Sig Dispense Refill divalproex (DEPAKOTE) 500 mg oral delayed released tablet 1 TAB EVERY 8 HRS X 48 HRS- if HEADACHE IS BETTER CAN DISCONTINUE- CALL US WITH AN UPDATE ON FRIDAY 6 tablet 0 HYDROcodone-acetaminophen (NORCO) 5-325 mg oral tablet TAKE 1 TABLET BY MOUTH TWICE A DAY NEEDED3 08/15 PER hydroxychloroquine (PLAQUENIL) 200 mg oral tablet Take 1 tablet (200 mg) by mouth Twice a Day. mycophenolate mofetil (CELLCEPT) 500 mg oral tablet TAKE 3 TABLETS BY MOUTH EVERY MORNING AND 2 TABLETS EVERY EVENING zolpidem (AMBIEN) 10 mg oral tablet TAKE 1 TABLET BY MOUTH EVERY DAY AT BEDTIME NEEDED FOR INSOMNIA No current facility-administered medications for this visit. Allergies Allergen Reactions Fosamax [Alendronate] Sumatriptan Palpitations Objective There were no vitals filed for this visit. Physical Exam: Neck supple Appeared to be in mild distress Neurologic: Mental status: alert and oriented to the current situations fund of knowledge intact. Speech and Language: Comprehension and spontaneous speech are normal. No dysarthria. Visual stephens were full, Face -symmetric ,no facial droop , Eye closure- intact. Tongue movements- normal ; Motor strength- normal . Reflexes normal and symmetric Sensations grossly intact. No tremors or involuntary movements Gait: Rising from a chair without hand support; normal associative movements of arms; casual gait Problem List Items Addressed This Visit Multi-system Immunosuppression (HCC) Relevant Medications mycophenolate mofetil (CELLCEPT) 500 mg oral tablet hydroxychloroquine (PLAQUENIL) 200 mg oral tablet Nervous Intractable headache, unspecified chronicity pattern, unspecified headache type - Primary Relevant Medications HYDROcodone-acetaminophen (NORCO) 5-325 mg oral tablet zolpidem (AMBIEN) 10 mg oral tablet divalproex (DEPAKOTE) 500 mg oral delayed released tablet Likely of status migrainosus Prednisone - irritability /short tempered - Depakote 500 mg every 8 hrs x 48 hrs - Hydration - Call us with an update on Friday Misa was seen today for other. Diagnoses and all orders for this visit: Intractable headache, unspecified chronicity pattern, unspecified headache type Immunosuppression (HCC) Other orders - divalproex (DEPAKOTE) 500 mg oral delayed released tablet; 1 TAB EVERY 8 HRS X 48 HRS- if HEADACHE IS BETTER CAN DISCONTINUE- CALL US WITH AN UPDATE ON FRIDAY Kinjal Lee MD PHERE MESSAGE BROKER DEVELOPER documented in this encounter Plan of Treatment Not on file documented as of this encounter Visit Diagnoses Diagnosis Intractable headache, unspecified chronicity pattern, unspecified headache type- Primary Immunosuppression (HCC) Unspecified disorder of immune mechanism documented in this encounter
--- OUTSIDE RECORDS SUMMARY | 2023-11-21 10:44 | XMS_ITS | Referral Summary ---
Author Name Unknown Organization [facility] Address [address] [place] [id number] Care Team Providers Care Station Tender Name Role Phone Unavailable Primary Care Provider Unavailabl e Encounters Date Type Department Care Team Description 08/25/2023 9:00 AM CONTROL PANEL BUILDER Office Visit [facility] [address] [place] [address] Kinjal Lee MD Intractable headache, unspecified chronicity pattern, unspecified headache type (Primary Dx); Immunosuppression (HCC) from Last 3 Months Allergies Active Allergy Reactions Criticality Noted Date [...] pattern, unspecified headache type 08/25/2023 Immunosuppression 08/25/2023 Social History Tobacco Use Types Packs/Day Years [...] Orientation Not on file Plan of Treatment Not on file Procedures Procedure Name Priority Date/Time Associated Diagnosis Comments MAMMO DIGITAL SCREENING BI Routine 09/17/2016 9:49 AM CONTROL PANEL BUILDER from Last 3 Months or Most Recently Relevant to Health Maintenance
--- OUTSIDE RECORDS SUMMARY | 2023-11-21 10:45 | XMS_ITS | Clinical Summary ---
Author Name Unknown Organization [facility] Address [place], [place] [address] Care Team Providers Care Classics Professor Name Role Phone Bhupendra Penny MD Primary Care Provider [phone] Allergies No known active allergies Medications Medication Sig Dispensed Refills Start Date End Date Status HYDROcodone-acetamin ophen, 5-325 mg, (NORCO) per tablet Take 1 tablet by mouth 2 times daily as needed 60 tablet 06/06/2014 Active HYDROcodone-acetamin ophen, 5-325 mg, (NORCO) per tablet Take 1 tablet by mouth twice daily as needed 60 tablet 09/09/2014 Active HYDROcodone-acetamin ophen, 5-325 mg, (NORCO) per tablet Take 1 tablet by mouth 2 times daily as needed 60 tablet 11/03/2014 Active HYDROcodone-acetamin ophen, 5-325 mg, (NORCO) per tablet Take 1 tablet by mouth twice daily as needed 60 tablet 12/02/2014 Active HYDROcodone-acetamin ophen, 5-325 mg, (NORCO) per tablet Take 1 tablet by mouth 2 times daily as needed. 60 tablet 12/30/2014 Active HYDROcodone-acetamin ophen, 5-325 mg, (NORCO) per tablet Take 1 tablet twice a day as needed 60 tablet 02/25/2015 Active mycophenolate (CELLCEPT) 500 mg tablet TAKE 3 TABLETS BY MOUTH EVERY MORNING AND 2 TABLETS EVERY EVENING 1 05/05/2019 Active hydroxychloroquine (PLAQUENIL) 200 mg tablet Take 200 mg by mouth 2 times daily. 1 05/04/2019 Active traZODone (DESYREL) 50 mg tablet TAKE 2 TABLETS BY MOUTH EVERY DAY AT BEDTIME 0 03/25/2019 Active warfarin (COUMADIN) 6 mg tablet TAKE 6 MG ON FRIDAY, FRIDAY, FRIDAY, AND FRIDAY. TAKE 3MG ON FRIDAY, AND FRIDAY 0 02/27/2019 Active zolpidem (AMBIEN) 10 mg tablet TAKE 1 TABLET BY MOUTH AT BEDTIME NEEDED FOR INSOMNIA 0 05/04/2019 Active Family History Medical History Relation Name Comments Cancer-breast No Family History Social History Tobacco Use Types Packs/Day Years Used Date Smoking Tobacco: Former Smokeless Tobacco: Never Sex and Gender Information Value Date Recorded Sex Assigned at Not on file Gender Identity Not on file Sexual Orientation Not on file Obstetrics History Last Filed Vital Signs Vital Sign Reading Time Taken Comments Blood Pressure - - Pulse - - Temperature - - Respiratory Rate - - Oxygen Saturation - - Inhaled Oxygen Concentration - - Weight 63.5 kg (140 lb) 06/21/2019 10:09 AM OFFICE COPY SELECTOR Height 165.1 cm (5' 5) 06/21/2019 10:09 AM OFFICE COPY SELECTOR Body Mass Index 23.3 06/21/2019 10:09 AM OFFICE COPY SELECTOR Plan of Treatment Health Maintenance Due Date Last Done Comments Tdap 02/10/1980 Depression screening for age 12+ 1981 HIV for age 15-65 02/10/1984 Hepatitis C screening for age 18-79 1987 Tetanus booster 1989 Pap test for age 21-65 1990 Lipids for age 45-75 2014 Mammogram for age 45-75 09/17/2017 09/17/19 17, 04/24/2015, 02/08/2014, Additional history exists Zoster (shingles) series for age 50+ (1 of 2) 2019 BMI (ht and wt on same day) for age 18+ 06/21/2020 06/21/2019 COVID-19 vaccine series (2022-24 season) 2023 Influenza for age 50-64 03/28/2024 Colonoscopy through age 75 03/30/2030 03/30/2020 Pneumococcal series for age 6-64 Aged Out No longer eligible based on patient's age to complete this topic Procedures Procedure Name Priority Date/Time Associated Diagnosis Comments SCAN-COLONOSCOPY 03/30/2020 8:00 AM CDT XR MAMMO BILAT SCREENING Routine 09/17/2016 9:49 AM OFFICE COPY SELECTOR Screening mammogram, encounter for from Last 3 Months or Most Recently Relevant to Health Maintenance Results * SCAN-COLONOSCOPY (03/30/2020 8:00 AM CDT) Narrative Procedure Note Grant Hoang MD - 03/30/2020 7:16 AM CDT [facility] [address], [address], [place] [address] Patient Name: Nithya Yost Gender: Female Exam Date: 03/30/2020 Visit Number: [id number] Age: 50 Years 1 Month Date of : 1970 Attending MD: Grant Hoang MD Medical Record#: [id number] ----- Procedure: Colonoscopy Indications: Colorectal cancer screening Referring MD: Referral Self Primary MD: Bhupendra Penny MD Medications: Admitting Medications: 0.9% Normal Saline at O Ondansetron Hydrochloride (Zofran) given 4mg by IV Intra Procedure Medications: Patient received monitored anesthesia care. Complications: No immediate complications Procedure: An examination of the heart and lungs was performed and found to be withinacceptable limits. The patient was therefore deemed a reasonablecandidate for endoscopy and monitored anesthesia care. The risks and benefits of the procedure were explained to the patient.After obtaining informed consent, the patient received monitoredanesthesia care and I passed the scope without difficulty via the rectum to the cecum. The appendiceal orificeand ic valve were identified. The scope was retroflexed during theexamination The quality of the prep was excellent (Miralax/Gatorade/2tablets Bisacodyl/Magnesium Citrate). This was a complete examination throughout the entire colon. Findings: Diverticulosis. Location: - sigmoid. Quantity: few. Anal canal: small internal hemorrhoid(s) Impression: Screening Colonoscopy Plan Repeat colonoscopy in 10 years for colon cancer screening. If you have signs or symptoms of lower GI illness or a new diagnosis ofcolon cancer in an immediate family member, you should contact your GIprovider or your primary provider to discuss whether your next examshould be repeated sooner. We will attempt to contact you at appropriate intervals via U.S. mail. Wemay not be able to find you or contact you at that time, therefore youshould know that the responsibility for following our recommendation restswith you. If you don't hear from us at the time your procedure is due,please contact our office to schedule an appointment. If your contactinformation should change, please contact our office so that we can updateyour records. Antiplatelets/Anticoagulants: Warfarin (Coumadin). Last dose: 5 daysago. Bridging Antiplatelets/Anticoagulants: Enoxaparin (Lovenox) SQ. Last dose:1 day ago. Restart. Date: 03/30/2020 Electronically signed by: Grant Hoang MD 03/30/2020 Medications: Medication Dose Sig Description PRN Status PRN Reason Comments Ambien 10 mg Tab 10 mg 1 tablet by mouth as needed N taking as directed calcium-magnesium UNKNOWN N taking as directed CellCept 500 mg Tab 500 mg Take two tablets by mouth daily N taking asdirected COUMADIN UNKNOWN Take one tablet by mouth daily N taking as directed magnesium 200 mg tablet 200 mg take 4 tablets by oral route 2 times everyday N taking as directed Plaquenil 200 mg Tab 200 mg Take one tablet by mouth twice a day N takingas directed trazodone 100 mg Tab 100 MG Take 1 tablet by mouth daily N taking asdirected Vicodin 5 mg-500 mg Tab 5 mg-500 mg as needed N taking as directed Vitamin D3 50 mcg (2,000 unit) capsule 50 mcg (2,000 unit) take 1 tabletby oral route every day N taking as directed Allergies: Medication Name Ingredient Reaction Comment NO KNOWN ALLERGIES Vital Signs: Date Time Systolic Diastolic Height Weight BMI 03/30/2020 741 AM 117 70 65 in 142.99 23.80 Race: Ethnicity: Not or Preferred Language: Moldovan cc: Bhupendra Penny MD cc: Referral Self cc: [facility] [phone] Grant Hoang MD OTHER * XR MAMMO BILAT SCREENING (09/17/2016 9:49 AM OFFICE COPY SELECTOR) Anatomical Region Laterality Modality BREASTS, Breast Left, Breast Right Bilateral Mammography Impressions 09/18/2016 10:36 AM OFFICE COPY SELECTOR ??There is no radiographic evidence for malignancy. ??Recommend annual mammograms. A lay language report of this examination will be provided to the patient. MAMMOGRAM ASSESSMENT: ??ACR 1 Negative Narrative 09/18/2016 10:36 AM OFFICE COPY SELECTOR XR MAMMO BILAT SCREENING [[id number]] CLINICAL HISTORY: ??This is an asymptomatic 46 y.o. patient. INDICATION FOR EXAM: Mammogram Screening. TECHNIQUE: CC & MLO views were obtained. ??This digital study was evaluated with the assistance of Computer-Aided Detection. COMPARISON FILM: Yes 04/24/15 [facility] 02/08/14 [facility] FINDINGS: ??Mammographically, the breast tissue is heterogeneously dense, which could obscure detection of small masses. There are no dominant masses, suspicious micro calcifications or areas of architectural distortion. Priyank Ohara DO MAMMO from Last 3 Months or Most Recently Relevant to Health Maintenance Care Teams Classics Professor Relationship Specialty Start Date End Date Bhupendra Penny MD [address] [place] [id number] PCP - General Family Practice 06/04/19
--- OUTSIDE RECORDS SUMMARY | 2023-11-21 10:45 | XMS_ITS | Continuity of Care Document ---
Author Name Unknown Organization [facility] Address [address] [place] [address] Phone Care Team Providers Care Etl Informatica Architect Name Role Phone Bhupendra García MD Unavailable Unavailabl e Allergies, Adverse Reactions, Alerts Substance Reaction Status Criticality No Known Allergies Active No Inform ation Medications Medication Instructions Dosage Effective Dates (start - stop) Status Comments mycophenolate mofetil 500 mg tablet TAKE 3 TABLETS BY MOUTH EVERY MORNING AND 2 TABLETS EVERY EVENING - Active hydrocodone 5 mg-acetaminophen 325 mg tablet take 1 tablet by oral route twice daily as needed - Active zolpidem 10 mg tablet TAKE 1 TABLET BY MOUTH AT BEDTIME NEEDED FOR INSOMNIA - Active hydroxychloroquine 200 mg tablet take 1 Tablet by oral route 2 times every day 200 MG - Active trazodone 50 mg [...] (950 mg) Tab twice daily - Active MYCOPHENOLATE 500 MG TABLET TAKE 3 TABLETS BY MOUTH EVERY MORNING AND 2 TABLETS EVERY EVENING - No Longer Active Procedures Procedure Date Office/Outpatient Visit, Est Office/Outpatient Visit, Est Routine [...] Protein Dna Antibody, Single Strand Dna Antibody, [place] Nuclear Antigen Antibodies Office/Outpatient Visit, Est Routine [...] Protein Dna Antibody, Single Strand Dna Antibody, [place] Nuclear Antigen Antibodies Office/Outpatient Visit, Est Routine Venipuncture Specimen Handling Complete Cbc WAuto Diff Wbc Assay Of Serum Albumin Assay Of Creatinine Transferase (Ast) (Sgot) Alanine Amino (Alt) (Sgpt) CReactive Protein Dna Antibody, Single Strand Dna Antibody, [place] Nuclear Antigen Antibodies Office/Outpatient Visit, Est Routine Venipuncture Complete Cbc WAuto Diff Wbc Assay Of Serum Albumin Assay Of Creatinine Transferase (Ast) (Sgot) Alanine Amino (Alt) (Sgpt) CReactive Protein Dna Antibody, Single Strand Dna Antibody, [place] Nuclear Antigen Antibodies Vitamin D 25 Hydroxy [...] Protein Dna Antibody, Single Strand Dna Antibody, [place] Nuclear Antigen Antibodies Office/Outpatient Visit, Est Routine [...] Encounter [facility], [address], [place], [address], [place] tel:[phone] [facility] No Information 4 Ricky Huizar. [address], [place], [address], [place]. tel:[phone] [facility], [address], [place], [address], [place] tel:[phone] [facility] , No Information 4 Kal Alvarado. [facility] [address], [place], [address], [place]. tel:[phone] [facility], [address], [place], [address], [place] tel:[phone] [facility] , No Information 4 Kal Alvarado. [facility] [address], [place], [address], [place]. tel:[phone] Office/Outpa tient Visit, Est [facility], [address], [place], [address], [place] tel:[phone] [facility] , Follow Up of SLE (chief complaint) Fibromyalg ia syndrome (chief complaint) Chronic regional pain syndrome (chief complaint) Other forms of systemic lupus erythematosu sSjogren syndrome with other organ involvementF ibromyalgiaL ania term (current) use of opiate analgesicOth er sustainable products marketing manager (current) drug therapyCompl ex regional pain syndrome I of right lower limbFatigueO steoporosis 4 Kal Alvarado. [facility] [address], [place], [address], [place]. tel:[phone] Referring Provider: Christiano Russ, [facility] [address], [place], [address]. tel:[phone] [facility], [address], [place], [address], [place] tel:[phone] [facility] , No Information 3 Kal Alvarado. [facility] [address], [place], [address], [place]. tel:[phone] Office/Outpa tient Visit, Est [facility], [address], [place], [address], [place] tel:[phone] [facility] , Follow Up of SLE (chief complaint) Fibromyalg ia syndrome (chief complaint) Chronic regional pain syndrome (chief complaint) Other forms of systemic lupus erythematosu sSjogren syndrome with other organ involvementF ibromyalgiaL ania term (current) use of opiate analgesicOth er fci (current) drug therapyCompl ex regional pain syndrome I of right lower limb 3 Kal Alvarado. [facility] [address], [place], [address], [place]. tel:[phone] Referring Provider: Christiano Russ, [facility] [address], [place], [address]. tel:[phone] [facility], [address], [place], [address], [place] tel:[phone] [facility] , No Information 2 Kal Alvarado. [facility] [address], [place], [address], [place]. tel:[phone] Office/Outpa tient Visit, Est [facility], [address], [place], [address], [place] tel:[phone] [facility] , Follow Up of SLE (chief complaint) Fibromyalg ia syndrome (chief complaint) Chronic regional pain syndrome (chief complaint) Other forms of systemic lupus erythematosu sSjogren syndrome with other organ involvementF ibromyalgiaL ania term (current) use of opiate analgesicOth er sustainable products marketing manager (current) drug therapy Nov-1 1-202 2 Kal Alvarado. [facility] [address], [place], [address], [place]. tel:[phone] Referring Provider: Christiano Russ, [facility] [address], [place], [address]. tel:[phone] [facility], [address], [place], [address], [place] tel:[phone] [facility] , Personal history of immunosuppre ssion therapy 2 Kal Alvarado. [facility] [address], [place], [address], [place]. tel:[phone] Referring Provider: Christiano Russ, [facility] [address], [place], [address]. tel:[phone] [facility], [address], [place], [address], [place] tel:[phone] [facility] , Personal history of immunosuppre ssion therapy 2 Kal Sánchez [facility] [address], [place], [address], [place]. tel:[phone] [facility], [address], [place], [address], [place] tel:[phone] [facility] , No Information 2 Kal Alvarado. [facility] [address], [place], [address], [place]. tel:[phone] [facility], [address], [place], [address], [place] tel:[phone] [facility] , Personal history of immunosuppre ssion therapy Mook-0 2 Kal Alvarado. [facility] [address], [place], [address], [place]. tel:[phone] Office/Outpa tient Visit, Est [facility], [address], [place], [address], [place] tel:[phone] [facility] , Follow Up of SLE (chief complaint) Fibromyalg ia syndrome (chief complaint) Chronic regional pain syndrome (chief complaint) Other forms of systemic lupus erythematosu sSjogren syndrome with other organ involvementF ibromyalgiaB ilateral photophobiaO ther fci (current) drug therapyLong term (current) use of opiate analgesic Oct-2 2 Kal Alvarado. [facility] [address], [place], [address], [place]. tel:[phone] Referring Provider: Christiano Russ, [facility] [address], [place], [address]. tel:[phone] Office/Outpa tient Visit, Est [facility], [address], [place], [address], [place] tel:[phone] [facility] , Follow Up of SLE (chief complaint) Fibromyalg ia syndrome (chief complaint) Chronic regional pain syndrome (chief complaint) Other forms of systemic lupus erythematosu sSjogren syndrome with other organ involvementF ibromyalgiaC omplex regional pain syndrome I of right lower limbBilatera l photophobiaO ther sustainable products marketing manager (current) drug therapyLong term (current) use of opiate analgesic Nov- 1 Kal Sánchez [facility] [address], [place], [address], [place]. tel:[phone] Referring Provider: Christaino Russ, [facility] [address], [place], [address]. tel:[phone] Office/Outpa tient Visit, Est [facility], [address], [place], [address], [place] tel:[phone] [facility] , Follow Up of SLE (chief complaint) Other forms of systemic lupus erythematosu sSicca syndrome with other organ involvementC omplex regional pain syndrome I of right lower limbOther fci (current) drug therapyLong term (current) use of opiate analgesic Oct- 1 Kal Alvarado. [facility] [address], [place], [address], [place]. tel:[phone] Referring Provider: Christiano Russ, [facility] [address], [place], [address]. tel:[phone] Office/Outpa tient Visit, Est [facility], [address], [place], [address], [place] tel:[phone] Telehealth Follow Up of SLE (chief complaint) Other forms of systemic lupus erythematosu sOther fci (current) drug therapyLong term (current) use of opiate analgesic Apr- 0 Kal Alvarado. [facility] [address], [place], [address], [place]. tel:[phone] Referring Provider: Christiano Russ, [facility] [address], [place], [address]. tel:[phone] Office/Outpa tient Visit, Est [facility], [address], [place], [address], [place] tel:[phone] Telehealth Follow Up of SLE (chief complaint) Other forms of systemic lupus erythematosu sCervicalgia Complex regional pain syndrome I of right lower limbOther sustainable products marketing manager (current) drug therapy Oct- 6- 0 Kal Alvarado. [facility] [address], [place], [address], [place]. tel:[phone] Referring Provider: Christiano Russ, [facility] [address], [place], [address]. tel:[phone] Office/Outpa tient Visit, Est [facility], [address], [place], [address], [place] tel:[phone] [facility] , Follow Up of SLE (chief complaint) Other forms of systemic lupus erythematosu sComplex regional pain syndrome I of right lower limbCervical giaPain in limbOther sustainable products marketing manager (current) drug therapy 9 Kal Alvarado. [facility] [address], [place], [address], [place]. tel:[phone] Referring Provider: Christiano Russ, [facility] [address], [place], [address]. tel:[phone] Office/Outpa tient Visit, Est [facility], [address], [place], [address], [place] tel:[phone] [facility] , Follow Up of SLE (chief complaint) Other forms of systemic lupus erythematosu sCervicalgia Complex regional pain syndrome I of right lower limbOther fci (current) drug therapy 9 Kal Alvarado. [facility] [address], [place], [address], [place]. tel:[phone] Referring Provider: Christiano Russ, [facility] [address], [place], [address]. tel:[phone] Office/Outpa tient Visit, Est [facility], [address], [place], [address], [place] tel:[phone] [facility] , SLE (chief complaint) Other forms of systemic lupus erythematosu sCervicalgia Low back painComplex regional pain syndrome I of right lower limbOther fci (current) drug therapyLong term (current) use of opiate analgesic Mar-2 8 Kal Alvarado. [facility] [address], [place], [address], [place]. tel:[phone] Referring Provider: Christiano Russ, [facility] [address], [place], [address]. tel:[phone] [facility], [address], [place], [address], [place] tel:[phone] [facility] , No Information 0 8 Kal Alvarado. [facility] [address], [place], [address], [place]. tel:[phone] Referring Provider: Christiano Rsus, [facility] [address], [place], [address]. tel:[phone] Office/Outpa tient Visit, Est [facility], [address], [place], [address], [place] tel:[phone] [facility] , Follow Up of SLE (chief complaint) Systemic lupus erythematosu sComplex regional pain syndrome I of right lower limbFibromya lgiaOther fci (current) drug therapy Sep- 8 Kal Alvarado. [facility] [address], [place], [address], [place]. tel:[phone] Referring Provider: Christiano Russ, [facility] [address], [place], [address]. tel:[phone] Office/Outpa tient Visit, Est [facility], [address], [place], [address], [place] tel:[phone] [facility] , Follow Up of SLE (chief complaint) Systemic lupus erythematosu sSjogren's syndromeLow back painCervical giaComplex regional pain syndrome I of right lower limbLong term (current) use of opiate analgesic Kal Alvarado. [facility] [address], [place], [address], [place]. tel:[phone] Referring Provider: Christiano Russ, [facility] [address], [place], [address]. tel:[phone] Office/Outpa tient Visit, Est [facility], [address], [place], [address], [place] tel:[phone] [facility] , Follow Up of SLE (chief complaint) Systemic lupus erythematosu sAcute recurrent parotitisSjo gren's syndromeOthe r fci (current) drug therapy Kal Alvarado. [facility] [address], [place], [address], [place]. tel:[phone] Referring Provider: Christiano Russ, [facility] [address], [place], [address]. tel:[phone] Office/Outpa tient Visit, Est [facility], [address], [place], [address], [place] tel:[phone] [facility] , Follow Up of SLE (chief complaint) Systemic lupus erythematosu sComplex regional pain syndrome I of right lower limbOther sustainable products marketing manager (current) drug therapy 7 Kal Alvarado. [facility] [address], [place], [address], [place]. tel:[phone] Referring Provider: Christiano Russ, [facility] [address], [place], [address]. tel:[phone] Office/Outpa tient Visit, Est [facility], [address], [place], [address], [place] tel:[phone] [facility] , Follow Up of SLE (chief complaint) Systemic lupus erythematosu sSjogren's syndromeDizz inessOther fci (current) drug therapy 6 Kal Alvarado. [facility] [address], [place], [address], [place]. tel:[phone] Referring Provider: Christiano Russ, [facility] [address], [place], [address]. tel:[phone] Office/Outpa tient Visit, Est [facility], [address], [place], [address], [place] tel:[phone] [facility] , Follow Up of SLE (chief complaint) Systemic lupus erythematosu sSjogren's syndromeChro maddi parotitisUpp er respiratory infectionOth er fci (current) drug therapy 6 Kal Alvarado. [facility] [address], [place], [address], [place]. tel:[phone] Referring Provider: Christiano Russ, [facility] [address], [place], [address]. tel:[phone] Office/Outpa tient Visit, Est [facility], [address], [place], [address], [place] tel:[phone] [facility] , Follow Up of SLE (chief complaint) Systemic lupus erythematosu sLong term (current) use of opiate analgesicOth er fci (current) drug therapy 6 Kal Alvarado. [facility] [address], [place], [address], [place]. tel:[phone] Referring Provider: Christiano Russ, [facility] [address], [place], [address]. tel:[phone] Office/Outpa tient Visit, Est [facility], [address], [place], [address], [place] tel:[phone] [facility] , Follow Up of SLE (chief complaint) Systemic lupus erythematosu sEffect of light, sequelaPain in right footOther sustainable products marketing manager (current) drug therapy 5 Kal Alvarado. [facility] [address], [place], [address], [place]. tel:[phone] Referring Provider: Christiano Russ, [facility] [address], [place], [address]. tel:[phone] Office/Outpa tient Visit, Est [facility], [address], [place], [address], [place] tel:[phone] [facility] , Follow Up of SLE (chief complaint) Systemic lupus erythematosu sFatigue / MalaiseThera peutic Drug Monitoring 5 Kal Alvarado. [facility] [address], [place], [address], [place]. tel:[phone] Referring Provider: Christiano Russ, [facility] [address], [place], [address]. tel:[phone] Office/Outpa tient Visit, Est [facility], [address], [place], [address], [place] tel:[phone] [facility] , Follow Up of SLE (chief complaint) Systemic lupus erythematosu sCervicalgia Therapeutic Drug Monitoring 5 Kal Alvarado. [facility] [address], [place], [address], [place]. tel:[phone] Referring Provider: Christiano Russ, [facility] [address], [place], [address]. tel:[phone] Office/Outpa tient Visit, Est [facility], [address], [place], [address], [place] tel:[phone] [facility] , SLE (chief complaint) Systemic lupus erythematosu sCervicalgia Therapeutic Drug Monitoring 4 Kal Alvarado. [facility] [address], [place], [address], [place]. tel:[phone] Referring Provider: Christiano Russ, [facility] [address], [place], [address]. tel:[phone] Office/Outpa tient Visit, Est [facility], [address], [place], [address], [place] tel:[phone] [facility] , SLE (chief complaint) Systemic lupus erythematosu sMyalgia and myositis, unspecifiedT herapeutic Drug Monitoring 4 Kal Alvarado. [facility] [address], [place], [address], [place]. tel:[phone] Referring Provider: Christiano Russ, [facility] [address], [place], [address]. tel:[phone] Office/Outpa tient Visit, Est [facility], [address], [place], [address], [place] tel:[phone] [facility] , SLE (chief complaint) Systemic lupus erythematosu sDisorders of bursae and tendons in shoulder region, unspecifiedF atigue / MalaiseThera peutic Drug Monitoring 4 Kal Alvarado. [facility] [address], [place], [address], [place]. tel:[phone] Referring Provider: Christiano Russ, [facility] [address], [place], [address]. tel:[phone] Office/Outpa tient Visit, Est [facility], [address], [place], [address], [place] tel:[phone] [facility] , SLE (chief complaint) Systemic lupus erythematosu sCramp of limbChronic lymphadeniti sRash and other nonspecific skin eruptionTher apeutic Drug Monitoring 3 Kal Alvarado. [facility] [address], [place], [address], [place]. tel:[phone] Referring Provider: Christiano Russ, [facility] [address], [place], [address]. tel:[phone] Office/Outpa tient Visit, Est [facility], [address], [place], [address], [place] tel:[phone] [facility] , SLE (chief complaint) Systemic lupus erythematosu sCervicalgia Abdominal pain, left lower quadrantTher apeutic Drug Monitoring 3 Kal Alvarado. [facility] [address], [place], [address], [place]. tel:[phone] Referring Provider: Christiano Russ, [facility] [address], [place], [address]. tel:[phone] Office/Outpa tient Visit, Est [facility], [address], [place], [address], [place] tel:[phone] [facility] , SLE (chief complaint) Systemic lupus erythematosu sCervicalgia Therapeutic Drug Monitoring 3 Kal Alvarado. [facility] [address], [place], [address], [place]. tel:[phone] Referring Provider: Christiano Russ, [facility] [address], [place], [address]. tel:[phone] [facility], [address], [place], [address], [place] tel:[phone] [facility] , No Information 2 Kal Alvarado. [facility] [address], [place], [address], [place]. tel:[phone] Office/Outpa tient Visit, Est [facility], [address], [place], [address], [place] tel:[phone] [facility] , SLE (chief complaint) Systemic lupus erythematosu sCervicalgia Therapeutic Drug Monitoring 2 [address]. [facility], [address], [place], [address], [place]. tel:[phone] Referring Provider: Christiano Russ, [facility], [facility] [address], [place], [address]. tel:[phone] Family History Family Member Type Diagnosis Age At Onset Mother Problem (finding) osteoporosis Paternal grandmother Problem (finding) Pulmonary embol us Maternal grandmother Problem (finding) osteoporosis Immunizations Vaccine Date Status Comments COVID-19 Moderna administered Source: Oth er Provider COVID-19 Gagan & Gagan administered S ource: Other Provider Payers Payer name Insurance type Covered alliance party ID Vale roldan(s) [employer] Medicare Advantage CI [id number] Social History Type Description Quantity Date Captured [...] Information Instructions Date Instruction Additional Infor juni She has significant osteoporosis based on the history of nontraumatic rib fractures. I encouraged her to proceed with Prolia. She seems more inclined to do so after our discussion today. Related to Osteoporosis See discussion above . She has already had extensive workup of her fatigue without specific underlying cause being determined. Again, I do wonder whether this is still related to her relatively recent COVID-19 infection rather than an exacerbation of her autoimmune disease. The laboratory results will help me hopefully to make that distinction. Related to Fatigue She has longstanding SLE with a somewhat atypical presentation. It is very difficult to make a distinction between SLE and ongoing issues related to her recent COVID infection as the cause of her recent escalation of symptoms that include fatigue, dizziness, dysesthesias, increased photophobia, hearing loss, tinnitus, nausea, and increased left lower quadrant abdominal pain. One concern is that she could be experiencing effects of having stopped Coumadin this summer although there are no obvious findings to suggest specific blood clots either on exam or on imaging. I have done additional laboratories to assess her SLE???she requested that they be done at her primary clinic last week. Some of those results, as expected, are still pending. I will let her know once I have those results. My overall clinical impression prior to seeing those results, however, is that the timing of symptoms suggest that the COVID played more of a role than her underlying autoimmune disease in her current exacerbation of symptoms. The neurologic symptoms are new. She has already been referred for neurology consult and I reiterated that. She is on maximum dose of CellCept and hydroxychloroquine. I did not recommend any change in these pending results of her laboratories. Related to Other forms of systemic lupus erythematosus She had recent labor atories done at her primary clinic which will also serve for monitoring her medications. Related to Other sustainable products marketing manager (current) drug therapy I will continue to m onitor her use of hydrocodone with the help of the PDMP. Related to ventilating engineer (current) use of opiate analgesic It is difficult to s ay how much of a role the fibromyalgia is playing in her current issues with fatigue. Certainly, again, COVID-19 could exacerbate this. Related to Fibromyalgia This is still an iss ue for her although she did get some relief from the sympathetic nerve block and her overall pain level today is actually considerably better than when I last saw her. Related to Complex regional pain syndrome I of right lower limb See discussion above regarding her autoimmune disease. Related to Sjogren syndrome with other organ involvement This is her main pro blem currently. [...] the help of the PDMP. 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 Related to Other sustainable products marketing manager (current) drug therapy She still has some g eneralized tenderness consistent with fibromyalgia. Overall, however, this has been well controlled for many years with the help of the analgesic medication and medication for sleep. Related to Fibromyalgia She will have routin e laboratories today [...] forms of systemic lupus erythematosus I will continue to m onitor her use of hydrocodone with the help of the PDMP. Related to half-way (current) use of opiate analgesic If anything, she is doing a bit better today compared to the last time I saw her on 06/20/2021. I did not recommend any change in the CellCept or Plaquenil. Related to Other forms of systemic lupus erythematosus At this point, there does not seem to be much more that can be done for this issue. Related to Bilateral photophobia I will continue to m onitor her use of hydrocodone with the help of the PDMP. Related to ventilating engineer (current) use of opiate analgesic She will [...] the help of the PDMP. Related to ventilating engineer (current) use of opiate analgesic I recommended follow -up with her clinical documentation nurse regarding this issue. Related to Bilateral photophobia She will have routin e laboratories today for monitoring medications and disease. Related to Other sustainable products marketing manager (current) drug therapy She still has some [...] forms of systemic lupus erythematosus She has increased dr yness and sensitivity of her eyes. She will continue topical treatments for this. She will follow-up with her clinical documentation nurse if symptoms do not settle down. Related [...] the help of the PDMP. Related to half-way (current) use of opiate analgesic She seems to be expe riencing a generalized flare of her lupus currently. We will proceed with a burst and taper of prednisone. Her other medications will remain unchanged. Related to Other forms of systemic lupus erythematosus We continue to monit or her use of hydrocodone with help of the PDMP. 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 These will be done at her primary clinic. Related to Other fci (current) drug therapy Although not asympto matic, she is doing [...] syndrome I of right lower limb I will provide a pre scription for [...] monitoring medications and disease. Related to Other sustainable products marketing manager (current) drug therapy The cause of her [...] about it. Related to Pain in limb The symptoms in her right foot also [...] Other fci (current) drug therapy This is her main iss ue today. [...] pain syndrome I of right lower limb Overall she seems to be doing reasonably well with her lupus. I did not recommend any change in the CellCept or Plaquenil. Related to Other forms of systemic lupus erythematosus She uses the hydrocodone infrequ ently. 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 Related to Other sustainable products marketing manager (current) drug therapy Although she is not asymptomatic, her SLE [...] discussion above. Related to Low back pain She will have routin e laboratories today for monitoring medications and disease. Related to Other sustainable products marketing manager (current) drug therapy Her symptoms of [...] obvious side effects of that. Related to ventilating engineer (current) use of opiate analgesic Her Sjogren's [...] monitoring medications and disease. Related to Other sustainable products marketing manager (current) drug therapy She has secondary Sj [...] this one. She did finally find any ear specialist was able to help her clear that that. I'm not sure if the antibiotics that she had received also played a role in that improvement. 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 Related to Other fci (current) drug therapy We discussed other t [...] to Other fci (current) drug therapy She has a persistent upper respiratory infection suggestive of sinusitis. She will be seeing an structural test engineer alone. Likely the Sjogren's syndrome is playing some role in this. The CellCept may also be contributing to her difficulty clearing this. If this continues to be a problem, I likely will check immunoglobulin levels to make sure she does not have immunoglobulin deficiency. Related to Upper respiratory infection I think she has carlose shayd secondary Sjogren's syndrome. This would be consistent [...] to start out with. I suggested [facility] orthopedics. Related to Pain in right foot She will have routin e laboratories today for monitoring medications and disease. Related to Other sustainable products marketing manager (current) drug therapy I agree that the [place] tosensitivity sounds like a migraine equivalent. I recommended that she consider evaluation by a neuro-clinical documentation nurse if this recently initiated trial of a [...] medications. Related to Systemic lupus erythematosus She will [...]
[2023-11-21] MEDS: OXYMETAZOLINE 0.05% NASAL SPRAY 2 SPRAY NOSTRIL-B (10:54)
[2023-11-21] MEDS: LACTATED RINGERS 1000 ML 1,000 ML 100 ML IV (10:55)
[2023-11-21] MEDS: SODIUM CHLORIDE 0.9 % (FLUSH) 10 ML SYRINGE IVF (11:09)
[2023-11-21] MEDS: COCAINE HCL 4 % 4 ML SOLUTION NOSTRIL-B (13:14)
[2023-11-21] MEDS: AYR SALINE NASAL GEL 1 APPLIC NOSTRIL-B (13:19)
[2023-11-21] MEDS: MUPIROCIN 1 GM PACKET 1 APPLIC TOPICAL (13:19)
[2023-11-21] MEDS: BUPIVACAINE 0.5 %/EPI 1:200K 30 ML INJECTION (13:20)
--- NOTE | 2023-11-21 13:27 | P.ENTPROC_ITS ---
Procedure Note Date of procedure: 11/21/23 Procedure: Preop diagnosis chronic right maxillary rhinosinusitis, nasal obstruction secondary to inferior turbinate hypertrophy Postprocedure diagnosis same Procedure submucous partial resection inferior turbinates, endoscopic right maxillary antrostomy with tissue removal Under general trach anesthesia patient was prepped and draped in usual fashion the image guidance system registered. The nose was decongested with cocaine pledgets and injected. The natural os of the maxillary sinus had partially close and was enlarged in a superior direction to coincide with the natural os. A 1 cm antrostomy was created. Of small amount of inspissated mucus and polypoid mucosa was removed from the floor of the right maxillary sinus. Both inferior turbinates were outfractured. A stab incision was made the anterior of the right inferior turbinate a tunnel created with a Stoddard dissector. A very conservative anterior submucous resection was performed and the Coblation was used for hemostasis and to cauterize along the inferior 10% in a conservative fashion. This was repeated on the left side. Merocel packing coated in Bactroban was placed in each side of the nose. The patient procedure well was taken recovery in satisfactory condition. Blood loss was less than 10 mL. Surgeon: Glenn Cole MD
--- NOTE | 2023-11-21 13:32 | W.ANESCHARGE ---
Anesthesia Charges Start Date/Time Anesthesia Start Date: 11/21/23 Anesthesia Start Time: 12:52 Stop Date/Time Anesthesia Stop Date: 11/21/23 Anesthesia Stop Time: 13:38
[2023-11-21] MEDS: fentaNYL 100 MCG/2 ML inj 50 MCG IVP ×2 (13:35→13:43)
--- NOTE | 2023-11-21 13:37 | W.ANESCHARGE ---
Anesthesia Charges Start Date/Time Anesthesia Start Date: 11/21/23 Anesthesia Start Time: 12:52 Stop Date/Time Anesthesia Stop Date: 11/21/23 Anesthesia Stop Time: 13:38
[2023-11-21] MEDS: OXYCODONE 5 MG TABLET PO (14:29)
[2023-11-21] MEDS: ACETAMINOPHEN 325 MG TABLET PO (14:29)
== END 2023-11-21 15:11 | disposition home or self-care (01) ==
PROVIDERS: PCP Internal Medicine; Visit Provider Otolaryngology
PROC: (CPT 31231; principal; 2023-11-21 12:00)
DX: J32.0 Chronic maxillary sinusitis (principal); J34.3 Hypertrophy of nasal turbinates; J34.89 Other specified disorders of nose and nasal sinuses
CPT/HCPCS: 30140; 31267; 00160; 88305; A9270; J0330; J1100; J2405; J2704; J3010; J3490; J7120

== ENCOUNTER 2024-06-14 12:51 | Outpatient (CLI) | payer MEDICARE, SELFPAY ==
--- NOTE | 2024-06-14 13:00 | MR_ITS ---
[address] [address] Phone:?[phone] Fax:?[phone] Referring Physician Information: Joseluis Parra M.D. [id number] [facility] [address] Phone:?[phone] Fax:?[phone] Patient:Emelina Yost D.O.B:?1970 Sex:?Female Phone:?[phone] [facility] MRN:?[id number] Exam Date:?06/14/2024 EXAM: MRI EXAMINATION OF THE RIGHT HIP CLINICAL INFORMATION: Female, 54 years old, with right hip, thigh, groin pain INDICATION: Greater trochanteric bursitis, abductor tendinitis, osteoarthritis PRIOR SURGERY: None reported. PLAIN FILMS: Radiographs 05/26/2024 COMPARISONS: No prior MRIs available. TECHNICAL INFORMATION: Using a 1.5T MR scanner and a localizing surface coil: coronals: PD, T2 sagittals: PD, T2 oblique axials: PD straight axials: T2FS coronals: T1, STIR of pelvis and hips SEDATION: None CONTRAST: None FINDINGS: Hip joint: Physiologic hip effusion. No chondromalacia or focal full-thickness defect of the femoral head or acetabular articular cartilage. No intra-articular bodies. Labrum: Labrum is suboptimally evaluated given lack of intra-articular contrast. There is some degree of heterogeneity and undersurface irregularity involving the anterior labrum. There does appear linear undersurface tearing anterosuperiorly, however (coronal series 4 image 19, and sagittal series 9 image 20). No evidence of paralabral ganglion cyst. Proximal femur: No femoral occult fracture, stress injury, marrow edema or osteonecrosis. Normal femoral head/neck junction offset. No fibrocystic change. No convincing femoral cam morphology. Based on oblique axial series 6 image 17 at approximately 3 o'clock anteriorly, the maximum femoral alpha angle measures approximately 42?. Acetabulum: No subchondral cysts, periacetabular ossicles or marrow edema. Coverage: Right lateral center edge (CE) angle measures approximately 36? (normal 25?-39?), midline coronal series 4 image 15, corrected for pelvic obliquity. Ligamentum teres: Ligamentum teres is intact and unremarkable. Pelvis osseous structures: Sacral ala and sacroiliac joints: No stress/insufficiency fractures or marrow edema/pathology. No demonstrable sacroiliitis. Pubic rami and pubic symphysis: No stress/insufficiency fractures or marrow edema/pathology. Normal alignment without hypertrophy or evidence of ongoing osteitis pubis. Myotendinous structures: Gluteus abductors: Mild gluteus minimus and medius tendinosis at the greater trochanter attachment. Mild sub-gluteus medius bursal fluid (axial series 7 image 9). Adductors: No demonstrable tendinopathy or strain/tear. Hamstrings: Intact semimembranosus, semitendinosus and biceps femoris tendons, without tendinopathy or tear. Flexors: Intact iliopsoas and rectus femoris, without strain/tear. External rotators: Intact, without demonstrable ischiofemoral impingement. Gluteal aponeurotic fascia and IT band: Unremarkable. Bursae: No demonstrable trochanteric, iliopsoas, or iliopectineal bursitis. Intrapelvic contents: Free fluid: No free fluid seen within the pelvis. Pelvic viscera: No discrete intrapelvic mass is identified. Lymph nodes: No lymphadenopathy by MRI size criteria. Neurovascular structures: No discrete cyst, mass or other compression upon the portions visualized of sciatic or femoral nerves. Lumbar spine: The visualized portions of the lower lumbar spine are unremarkable. IMPRESSION: 1. Suboptimal evaluation of the labrum given lack of intra-articular contrast. There does appear short segment linear undersurface tearing of the anterosuperior labrum, with additional heterogeneity and undersurface fraying anteriorly. 2. Mild gluteus minimus and medius tendinosis at the greater trochanter attachment. Mild sub-gluteus medius bursal fluid 3. Normal thickness and signal of femoral and acetabular articular cartilage. 4. Normal femoral head/neck junction offset without cam deformity. Normal volume hip. 5. Intact iliopsoas, common hamstrings, and rectus femoris tendons. KME Electronically signed on 06/15/2024 10:50:00 AM by Kerline Khan M.D.
== END 2024-06-14 12:52 | disposition home or self-care (01) ==
LOC: MRI 12:52
PROVIDERS: PCP Internal Medicine; Visit Provider Orthopaedic Surgery Sports Medicine
DX: M25.551 Pain in right hip (principal); M76.891 Other specified enthesopathies of right lower limb, excluding foot; M70.61 Trochanteric bursitis, right hip
CPT/HCPCS: 73721

== ENCOUNTER 2024-08-12 08:03 | Outpatient (CLI) | payer MEDICARE, SELFPAY ==
--- NOTE | 2024-08-12 08:15 | CRLHL7_ITS ---
For Patients: As a result of the Cures Act, medical imaging exams and procedure reports are released immediately into your electronic medical record. You may view this report before your referring provider. If you have questions, please contact your health care provider. BILATERAL SCREENING MAMMOGRAM WITH COMPUTER-AIDED DETECTION AND TOMOSYNTHESIS TECHNIQUE: CC and MLO views were obtained. These mammographic images have been obtained using full-field digital technique. These mammographic images were interpreted with the benefit of computer-aided detection. Breast Tomosynthesis was used in this interpretation. COMPARISON FILM: 07/10/23, 04/02/22, 02/12/21. FINDINGS: There are scattered areas of fibroglandular density IMPRESSION: There is no radiographic evidence for malignancy. ASSESSMENT: BI-RADS Category 1: Negative RECOMMENDATION: Routine screening mammogram in 1 year. A lay language report of this examination will be provided to the patient. Joe Torres M.D. Diagnostic Radiologist [email or web address] ZOE/nisha Transcribed: 3:39 p.mFrank cameron/Dictated by: Joe Torres MD @ 08/12/2024 11:54:00 AM (Electronically Signed)
== END 2024-08-12 08:04 | disposition home or self-care (01) ==
LOC: MAMMO 08:04
PROVIDERS: PCP Internal Medicine; Visit Provider Internal Medicine
DX: Z12.31 Encounter for screening mammogram for malignant neoplasm of breast (principal)
CPT/HCPCS: 77063; 77067

== ENCOUNTER 2025-03-09 13:44 | Outpatient (CLI) | payer MEDICARE, SELFPAY ==
--- NOTE | 2025-03-09 14:00 | CRLHL7_ITS ---
For Patients: As a result of the Century Cures Act, medical imaging exams and procedure reports are released immediately into your electronic medical record. You may view this report before your referring provider. If you have questions, please contact your health care provider. XR DXA Bone Mineral Density (BMD) Reason for exam: Systemic lupus or erythematosus, unspecified. Current height (inches): 65.0 Weight (lbs.): 150.0 Menopause age: 31 Ethnicity: White 1. Have you had a previous hip or vertebral fracture? Yes. 2. Have you had any fractures during your adult life which did not result from significant trauma (e.g., auto accident)? Yes. 3. Did either of your parents have a hip fracture? Yes. 4. Do you smoke? No. 5. Have you ever taken Glucocorticoids? Yes. 6. Do you have rheumatoid arthritis? No. 7. Do you have secondary osteoporosis? Yes. 8. Do you drink 3 or more alcoholic drinks per day? No. 9. Are you being treated for osteoporosis? Yes. 10. Have you ever taken any of the following medications: Actonel, Evista, Fosamax, Miacalcin, Reclast, Boniva, Forteo, HRT (i.e., estrogen/hormone therapy), Protelos, Prolia, Vitamin D, Calcium, other ??? please specify. ANSWER: Yes; vitamin D and calcium. 11. Do you have any of the following medical conditions: Anorexia or bulimia, asthma or emphysema, end stage renal disease, hyperparathyroidism, any seizure disorders, cancer, inflammatory bowel diseases, hysterectomy, other ??? please specify. ANSWER: Yes; Hysterectomy. 12. What was your maximum height (inches)? 65. 13. Do you perform weightbearing exercise regularly? Yes. 14. Do you regularly consume dairy products? Yes. 15. Do you drink caffeinated beverages? Yes. 16. At what age did your period start? 11. 17. Are you premenopausal? No. 18. How many full-term pregnancies have you had? 2. 19. Have you ever missed your period for more than 6 months in a row (not including or menopause)? No. TECHNIQUE: Bone mineral density study was performed using the [employer]. FINDINGS: The results of the study expressed as bone mineral density (BMD) are as follows: Lumbar Spine L1 to L4: BMD: 0.782 g/cm2. T-score: -2.4. Z-score: -1.3. Neck Left: BMD: 0.604 g/cm2. T-score: -2.2. Z-score: -1.1. Right: BMD: 0.566 g/cm2. T-score: -2.6. Z-score: -1.5. Total Left: BMD: 0.819 g/cm2. T-score: -1.0. Z-score: -0.3. Right: BMD: 0.740 g/cm2. T-score: -1.7. Z-score: -0.9. IMPRESSION: Osteoporosis. JOE COELLO M.D. Diagnostic Radiologist [email or web address] Transcribed: 4:[address]/Dictated by: Joe Coello MD @ 03/09/2025 4:00:00 PM (Electronically Signed)
== END 2025-03-09 13:45 | disposition home or self-care (01) ==
LOC: RAD 13:44
PROVIDERS: PCP Internal Medicine; Visit Provider Internal Medicine
DX: M32.9 Systemic lupus erythematosus, unspecified (principal); M81.0 Age-related osteoporosis without current pathological fracture
CPT/HCPCS: 77080

== ENCOUNTER 2025-03-25 12:28 | Emergency (ER) | payer MEDICARE, SELFPAY ==
--- OUTSIDE RECORDS SUMMARY | 2022-12-24 01:55 | XMS_ITS | Continuity of Care Document ---
Author Organization [facility] Address [address] [address] [place] [address] Phone Care Team Providers Care Lieutenant Colonel Name Role Phone Viktor SCHNEIDER, Grant Unavailable Unavailable Allergies, Adverse Reactions, Alerts Substance Reaction Status Criticality No Known Allergies Active No Inform ation Medications Medication Instructions Dosage Effective Dates (start - stop) Status Comments omeprazole 40 mg capsule,delayed release take 1 by Oral route every day Take 30 minutes before breakfast. 1 - Active Stool Softener 50 mg capsule take 2 capsule by oral route every day at bedtime as needed 100 MG - Active CellCept 500 mg Tab Take two tablets by mouth daily - Active Plaquenil 200 mg Tab Take one tablet by mouth twice a day - Active trazodone 100 mg Tab Take 1 tablet by mouth daily - Active Ambien 10 mg Tab 1 tablet by mouth as needed - Active omeprazole 40 mg capsule,delayed release take 1 by Oral route every day Take 30 minutes before breakfast. 1 - No Longer Active Procedures Procedure Date Ugi Endo; W/bx 1/mx Level Iv-surg Path Gross/micro 23 Offic/outpt E&m Estab Mod-hi 2 23 Colorectal Ca Scrn Not Hi Risk Colonoscopy Flex; W/remov Les- 08 Colonoscopy Flex; W/bx 1/mx Level Iv-surg Path Gross/micro Offic Cons New/estab Mod-hi 60 08 Routine Serum Collection [id number] Advance Directives Directive Yes / No Effective Date File Name No Information Encounters Encounter Description Practice Location Reason(s) For Visit Diagnoses Date Provider Providers Copied on Encounter [facility], [address] [address], [place], [id number], [place] tel:[phone] [facility] No Information 3 Viktor Burns. [address] [facility], [facility] [address], [place], [place], [id number] , [place]. [phone] [facility], [address] [address], [place], [id number], [place] tel:[phone] [facility] GI Symptoms or Concerns (chief complaint) Oth symptoms and signs involving the circ and resp systemsAbdominal distension (gaseous)Oth symptoms and signs involving the circ and resp systemsAbdominal distension (gaseous) 3 Viktor Burns. [address] [facility], [facility] [address], [facility] [place], [place], [id number] , [place]. tel:[phone] [facility] tel:[phone] ring Provider: Referral Self, USE FOR SELF REFERRALS. Offic/outpt E&m Estab Mod-hi 2 [facility] BRIAN, [address] [address], [place], [id number], [place] tel:[phone] [facility] GI Symptoms or Concerns (chief complaint) Globus sensationBloating 3 Viktor Burns. [address] [facility] [address], [address], [facility] [place], [place], [id number] , [place]. tel:[phone] [facility]. tel:[phone] ring Provider: Alfredo Freeman, [address] [place] [address], [address]. tel:[phone] [facility], [address] [address], [place], [id number], [place] tel:[phone] [facility] No Information 3 Vineet Millan. [address], [address], [place], [id number] , [place]. tel: [phone] [facility], [address] [address], [place], [id number], [place] tel:[phone] [facility] Screening ColonoscopyDvrtclo s of lg int w/o perforation or abscess w/o bleedingEncounter for screening for malignant neoplasm of colon Sep-0 0 Viktor Burns. [address] [facility] [address], [address], [place], [id number] , [place]. tel: [phone] [facility]. tel:[phone] ring Provider: Referral Self, USE FOR SELF REFERRALS. [facility], [address] [address], [place], [id number], [place] tel:[phone] [facility] No Information Sep-0 0 Viktor Burns. [address] [facility] [address], [address], [place], [id number] , [place]. tel: [phone] [facility], [address] [address], [place], [id number], [place] tel:[phone] [facility] Polyp-intes/rect/s morelia-unc BehBenign Neoplasm Lg BowelDiarrheaChang e In Bowel Habits Sep-0 8 Viki Kearns. [address] [facility] [address], [address], [place], [id number] , [place]. tel: [phone] Referring Provider: Carlos Pfeiffer, [address] [facility] [place], [address]. [phone] Offic Cons New/estab Mod-hi 60 [facility], [address] [address], [place], [id number], [place] tel:[phone] [facility] DiarrheaLLQ PainWeight Loss 200 8 Viki Kearns. [address] [facility], [address], [employer], [place], [id number] , [place]. tel: [phone] Referring Provider: Carlos Guzman [place] C, [address] [place], [address]. tel:[phone] Family History Family Member Type Diagnosis Age At Onset Brother Problem (finding) Cancer, esophageal Mother Problem (finding) Colon polyps Mother Problem (finding) Diverticular disease Brother Problem (finding) Cancer, throat First degree family history Problem (finding) Colon Po lyps Brother Problem (finding) Cancer, gastric Immunizations Vaccine Date Status Comments SARS-COV-2 (COVID-19) vaccin e, mRNA, spike protein, LNP, preservative free, 100 mcg/0.5mL dose or 50 mcg/0.25mL dose administered Note: [facility] bi -directional interface ; Source: Other Registry Influenza, injectable, Madin Camilla Canine Kidney, preservative free, quadrivalent administered Note: [place] [facility] bi- directional interface ; Source: Other Registry SARS-COV-2 (COVID-19) vaccin e, mRNA, spike protein, LNP, preservative free, 100 mcg/0.5mL dose or 50 mcg/0.25mL dose administered Note: [facility] bi -directional interface ; Source: Other Registry SARS-COV-2 (COVID-19) vaccin e, vector non-replicating, recombinant spike protein-Ad26, preservative free, 0.5 mL administered Note: [facility] bi- directional interface ; Source: Other Registry tetanus toxoid, reduced diphtheria toxoid, and acellular pertussis vaccine, adsorbed administered Note: [facility] b i-directional interface ; Source: Other Registry Payers Payer name Insurance type Covered democrat ID Authoriza tion(s) [employer] Medicare [place] [id number] Social History Type Description Quantity Date Captured Comments Alcohol Use Details Unknown Caffeine Use Details Unknown Tobacco Use Status No Information Smoking Status No Information Sex Female Chief Complaint And Reason For Visit No Information Reason For Referral Reason For Referral No Information Plan Of Treatment Date Type Action Status Referral Ordered: follow-up visit 2 Months Appointment date/timeframe: 2 Months ordered Referral Ordered: EGD Appointment date/timeframe: 09/30/2022 ordered History Of Present Illness Encounter Date Complaint History Of Prese nt Illness GI Symptoms or Concerns GI Symptoms or Concerns I had pl easure of meeting Ms. Nithya Yost, 52-year-old woman seen in consultation at the request of Dr. Lozano for evaluation of globus symptoms, bloating.Nithya is a 52-year-old woman with complicated medical history including lupus, Sjogren's syndrome, fibromyalgia, prothrombin gene mutation, who presents to GI Clinic with complaint of globus and bloating.She describes a pressure-like sensation in her throat like someone is putting their thumb on her throat or a lump in her throat. This has gotten worse over the last 6-12 months. She has a hoarse voice intermittently. She was seen by ENT for chronic sinusitis and ultimately had sinus surgery, which improved the situation, but nevertheless her symptoms persist. She does endorse overt heartburn symptoms, but is unsure if she has overt reflux symptoms. Denies any dysphagia or odynophagia. She does get some early satiety, but attributes this to bloating (more than this below).She has tried taking famotidine a Functional Status Date Functional Assessmen t No Information Instructions Date Instruction Additional Infor juni Hiatal Hernia Related to Oth s ymptoms and signs involving the circ and resp systems 1. omeprazole 40 mg daily.2. EGD with biopsies of esophagus, stomach and duodenum.3. Consider dietary modification and I wrote out several for her including gluten free diet, low fructose diet, low FODMAPs or Paleo as well as consider daily laxative such as MiraLax or Smooth Move Tea.4. Follow up in clinic in 2 months' time.Thank you so much for involving me in the care of Ms. Yost. Related to Globus sensation Colon Cancer Prevention Related to Screening Colonoscopy diverticulosis Related to Scree chanda Colonoscopy Hemorrhoids Related to Scree chanda Colonoscopy high fiber diet Related to Scree chanda Colonoscopy Assessments Type Assessment Date No Information Patient Care Teams Name Effective Dates (start - stop) Status Members No Information
--- OUTSIDE RECORDS SUMMARY | 2025-03-25 12:30 | XMS_ITS | Patient Health Record ---
Author Organization [facility] Address [address] [place] [address] Care Team Providers Care Rolled Gold Plater Name Role Phone Priyank Ohara Primary Care Provider RAYMOND Sosa [phone] Reason For Referral No Information Medications Medication SIG (Take, Route, Frequency, Duration) Notes Start Date End Date Status Hydrocodone-Acetaminophen ; Duration: 30 Specia lInstruct ion: TAKE 1 TABLET BY MOUTH TWICE A DAY NEEDED 03/18/2016 Active bromfenac ; Duration: 14 04/11/2016 Act zuleyma warfarin ; Duration: 90 SpecialInstruct ion: TAKE 1 TAB DAILY OR DIRECTED PER INR 04/11/2016 Active Restasis ; Duration: 30 04/11/2016 Act zuleyma trazodone ; Duration: 90 SpecialInstruct ion: TAKE 2 TABLET (100MG) BY ORAL ROUTE EVERY DAY AT BEDTIME 04/11/2016 Active zolpidem ; Duration: 90 SpecialInstruct ion: TAKE 1 TABLET AT BEDTIME NEEDED FOR INSOMNIA 04/11/2016 Active hydroxychloroquine ; Duration: [address] ion: TAKE 1 TABLET (200MG) BY ORAL ROUTE 2 TIMES EVERY DAY 04/11/2016 Active CellCept Active Plaquenil Active Mycophenolate Mofetil ; Duration: 90 SpecialIns truct ion: NEEDS PA TAKE 3 TABLETS EVERY AM, TAKE 2 TABLETS EVERY PM 04/11/2016 Active traZODone HCl Active Ambien Active Warfarin Sodium Acti ve Vitamin D Active Lotemax ; Duration: 12 04/11/2016 Act zuleyma Calcium Active Problems Problem Type SNOMED Code ICD Code Onset Dates Problem Status W/U Status Risk Notes Problem Chronic rhinitis (49976948) Chronic rhinitis (J31.0) Active confirmed Problem Recurrent sinusitis (061706543) Recurrent sinusitis (J32.9) Active confirmed Problem Dry mouth (07612195) Dry mouth (R68.2) Active confirmed Problem Abnormal auditory perception (59601005) Abnormal auditory perception, unspecified laterality (H93.299) Active confirmed Problem Vascular headache (202755618) Vascular headache, not elsewhere classified (G44.1) 04/11/20 16 0 confirmed [id number] Problem Sicca syndrome (82965099) Sicca syndrome, unspecified (M35.00) 04/11/20 16 0 confirmed [id number] Problem Dizziness and giddiness (333202945) Dizziness and giddiness (R42) 04/11/20 16 0 confirmed [id number] Problem Encounter for examination of ears and hearing without abnorm (Z01.10) 04/11/20 16 0 confirmed [id number] Problem Sialoadenitis (41796707) Parotid sialoadenitis (527.2) 12/21/19 17 0 confirmed [id number] Plan Of Treatment No Information Insurance Providers Payer Name Payer Address Payer Phone Subscriber Number Group Number Insured Name Patient Relationship to Insured Coverage Start Date Coverage End Date [employer] [place] [employer] [address] [address] [place], [place] [id number] Nithya Yost Self - patient is the insured Medical (General) History Medical History History ICD Code autoimmune disorder/lupus Surgical History Surgery Date(Month/Year) eye foot spine hysterectomy
--- OUTSIDE RECORDS SUMMARY | 2025-03-25 12:30 | XMS_ITS | Clinical Summary ---
Author Organization [facility] Address [address] [place] [address] Care Team Providers Care Appian Bpm Developer Name Role Phone Bhupendra Penny MD Primary Care Provider [phone] Allergies No known active allergies Medications HYDROcodone-deven taminophen, 5-325 mg, (NORCO) per tablet Take 1 tablet by mouth 2 times daily as needed 60 tablet 06/06/2014 10:30 AM TRANSACTION MANAGER 4 Active HYDROcodone-deven taminophen, 5-325 mg, (NORCO) per tablet Take 1 tablet by mouth twice daily as needed 60 tablet 09/09/2014 10:42 AM TRANSACTION MANAGER 5 Active HYDROcodone-deven taminophen, 5-325 mg, (NORCO) per tablet Take 1 tablet by mouth 2 times daily as needed 60 tablet 11/05/2014 9:49 AM CDT 5 Active HYDROcodone-deven taminophen, 5-325 mg, (NORCO) per tablet Take 1 tablet by mouth twice daily as needed 60 tablet 12/02/2014 11:33 AM CDT 5 Active HYDROcodone-deven taminophen, 5-325 mg, (NORCO) per tablet Take 1 tablet by mouth 2 times daily as needed. 60 tablet 12/30/2014 9:49 AM CDT 5 Active HYDROcodone-deven taminophen, 5-325 mg, (NORCO) per tablet Take 1 tablet twice a day as needed 60 tablet 02/25/2015 11:34 AM CDT 5 Active mycophenolate (CELLCEPT) 500 mg tablet TAKE 3 TABLETS BY MOUTH EVERY MORNING AND 2 TABLETS EVERY EVENING 1 9 Active hydroxychloroqu ine (PLAQUENIL) 200 mg tablet Take 200 mg by mouth 2 times daily. 1 9 Active traZODone (DESYREL) 50 mg tablet TAKE 2 TABLETS BY MOUTH EVERY DAY AT BEDTIME 0 9 Active warfarin (COUMADIN) 6 mg tablet TAKE 6 MG ON FRIDAY, FRIDAY, FRIDAY, AND FRIDAY. TAKE 3MG ON FRIDAY, AND FRIDAY 0 9 Active zolpidem (AMBIEN) 10 mg tablet TAKE 1 TABLET BY MOUTH AT BEDTIME NEEDED FOR INSOMNIA 0 9 Active Family History Medical History Relation Name Comments Cancer-breast No Family History Social History Tobacco Use Types Packs/Day Years Used Date Smoking Tobacco: Former Smokeless Tobacco: Never Comments Unknown Sex and Gender Information Value Date Recorded Sex Assigned at Not on file Legal Sex Female 7:06 AM TRANSACTION MANAGER Gender Identity Not on file Sexual Orientation Not on file Obstetrics History Last Filed Vital Signs Vital Sign Reading Time Taken Comments Blood Pressure - - Pulse - - Temperature - - Respiratory Rate - - Oxygen Saturation - - Inhaled Oxygen Concentration - - Weight 63.5 kg (140 lb) 06/21/2019 10:09 AM TRANSACTION MANAGER Height 165.1 cm (5' 5) 06/21/2019 10:09 AM TRANSACTION MANAGER Body Mass Index 23.3 06/21/2019 10:09 AM TRANSACTION MANAGER Plan of Treatment Health Maintenance Due Date Last Done Comments Tetanus booster 02/10/1980 Depression screening for age 12+ 1981 HIV for age 15-65 02/10/1984 Hepatitis C screening for ag e 18-79 1987 Hepatitis B series for 19+ ( 1 of 3 - 19+ 3-dose series) 02/10/1988 Pap test for age 21-65 1990 Lipids for age 45-75 2014 Mammogram for age 45-75 09/17/2017 09/17/19 17, 04/24/2015, 02/08/2014, Additional history exists Pneumococcal series for age 50+ (1 of 1 - PCV) 2019 Zoster (shingles) series for age 50+ (1 of 2) 2019 BMI (ht and wt on same day) for age 18+ 06/21/2020 06/21/2019 COVID-19 vaccine series ( - 2023- season) 2024 Influenza Vaccine (#1) 2025 Colonoscopy through age 75 03/30/2030 03/30/2020 Procedures Procedure Name Priority Date/Time Associated Diagnosis Comments SCAN-COLONOSCOPY 03/30/2020 8:00 AM CDT XR MAMMO BILAT SCREENING Routine 09/17/2016 9:49 AM TRANSACTION MANAGER Screening mammogram, encounter for from Last 3 Months or Most Recently Relevant to Health Maintenance Results * SCAN-COLONOSCOPY (03/30/2020 8:00 AM CDT) Narrative Procedure Note Grant Hoang MD - 03/30/2020 7:16 AM CDT [facility] [address] [place] [address], [address], [place] [address] Patient Name: Nithya Yost Gender: Female Exam Date: 03/30/2020 Visit Number: [id number] Age: 50 Years 1 Month Date of : 1970 Attending MD: Grant Hoang MD Medical Record#: [id number] ----- Procedure: Colonoscopy Indications: Colorectal cancer screening Referring MD: Referral Self Primary MD: Bhupendra Penny MD Medications: Admitting Medications: 0.9% Normal Saline at TKO Ondansetron Hydrochloride (Zofran) given 4mg by IV [...] 23.80 Race: Ethnicity: Not or Preferred Language: Palauan cc: Bhupendra Penny MD cc: Referral Self cc: [facility] [phone] Grant casey Result * XR MAMMO BILAT SCREENING (09/17/2016 9:49 AM TRANSACTION MANAGER) Anatomical Region Laterality Modality BREASTS, Breast Left, Breast Right Bilateral Mammography Impressions 09/18/2016 10:36 AM TRANSACTION MANAGER There is no radiographic evidence for malignancy. Recommend annual mammograms. A lay language report of this examination will be provided to the patient. MAMMOGRAM ASSESSMENT: ACR 1 Negative Narrative 09/18/2016 10:36 AM TRANSACTION MANAGER XR MAMMO BILAT SCREENING [[id number]] CLINICAL HISTORY: This is an asymptomatic 46 y.o. patient. INDICATION FOR EXAM: Mammogram Screening. TECHNIQUE: CC & MLO views were obtained. This digital study was evaluated with the assistance of Computer-Aided Detection. COMPARISON FILM: Yes 04/24/15 [facility] 02/08/14 [facility] FINDINGS: Mammographically, the breast tissue is heterogeneously dense, which could obscure detection of small masses. There are no dominant masses, suspicious micro calcifications or areas of architectural distortion. us Priyank Ohara DO MAMMO Final Result from Last 3 Months or Most Recently Relevant to Health Maintenance Insurance [employer] MEDICARE ADVANTAGE MR Care Teams Appian Bpm Developer Relationship Specialty Start Date End Date Bhupendra Penny MD [address] [place] [id number] PCP - General Family Practice 06/04/19
--- OUTSIDE RECORDS SUMMARY | 2025-03-25 12:30 | XMS_ITS | Clinical Summary ---
Author Organization [facility] Address [address] [place] [address] Care Team Providers Care Unit Assistant Name Role Phone Unavailable Primary Care Provider Unavailabl e Allergies Active Allergy Reactions Criticality Noted Date Comments Alendronate 08/25/2023 Sumatriptan Palpitations 08/25/2023 Medications mycophenolate mofetil (CELLCEPT) 500 mg oral tablet TAKE 3 TABLETS BY MOUTH EVERY MORNING AND 2 TABLETS EVERY EVENING 3 Active hydroxychloroqu ine (PLAQUENIL) 200 mg oral tablet Take 1 tablet (200 mg) by mouth Twice a Day. 3 Active HYDROcodone-deven taminophen (NORCO) 5-325 mg oral tablet TAKE 1 TABLET BY MOUTH TWICE A DAY NEEDED3 08/15 PER MD 4 Active zolpidem (AMBIEN) 10 mg oral tablet TAKE 1 TABLET BY MOUTH EVERY DAY AT BEDTIME NEEDED FOR INSOMNIA 4 Active divalproex (DEPAKOTE) 500 mg oral delayed released tablet 1 TAB EVERY 8 HRS X 48 HRS- if HEADACHE IS BETTER CAN DISCONTINUE- CALL US WITH AN UPDATE ON FRIDAY 6 tablet 4 Active divalproex (DEPAKOTE DR) 250 mg oral 12-hour delayed-release tablet Take 1 tablet (250 mg) by mouth twice a day. 2 tablet 4 Active Active Problems Problem Noted Date Diagnosed Date Intractable headache, unspec ified chronicity pattern, unspecified headache type 08/25/2023 Immunosuppression 08/25/2023 Social History Tobacco Use Types Packs/Day Years Used Date Smoking Tobacco: Former Cigarettes Smokeless Tobacco: Never Tobacco Cessation:Counseling Given: Not Answered Alcohol Use Standard Drinks/Week Comments Not Currently 0 (1 standard drink = 0.6 oz pur e alcohol) 2 per month Comments Unknown Sex and Gender Information Value Date Recorded Sex Assigned at Not on file Legal Sex Female 2:07 PM DIRECTOR CHEMISTRY Gender Identity Not on file Sexual Orientation Not on file Plan of Treatment Health Maintenance Due Date Last Done Comments Colonoscopy 1970 Hepatitis C Screening 1970 Lipid Screening 1970 Medicare Wellness Visit 1970 Pap Smear 1969 Anxiety Screening (SKYE-2) 1970 Depression Assessment (PHQ-2) 1970 Adult Tetanus Booster 02/10/1988 Pneumococcal 50+ Years (1 of 2 - PCV) 02/10/1988 Zoster Vaccine (1 of 2) 02/10/1988 Mammogram Screening 09/17/2018 09/17/2016, 04/24/2015, 02/08/2014, Additional history exists Yearly Review of HCD 2019 COVID-19 Vaccine (2023- season) 2024 11/24/2021, 05/28/2021, 10/05/2020 Influenza Vaccine (#1) 2025 06/08/2020 RSV Vaccines (1 - 1-dose 75+ series) 02/10/2044 Meningococcal B Vaccine Aged Out No l onger eligible based on patient's age to complete this topic Insurance [facility] MEDICARE ADVANTAGE
[2025-03-25 12:32] VITALS: BP 162/84; PULSE 89; RESP 18; TEMP 36.8; O2SAT 100
--- NOTE | 2025-03-25 12:42 | ED.GENADULT ---
HPI - General Adult General Chief complaint: Dizziness/Vertigo Stated complaint: Medication reaction: dizziness, cramping Time Seen by Provider: 03/25/25 12:42 History of Present Illness HPI narrative: Patient presents to the emergency department for adverse reaction to her topiramate. Patient states she is very dizzy and feels like her heart is racing. Patient feels that it is hard to see with her dizziness as well. 55-year-old woman presenting to the emergency department Related Data Home Medications ?Medication ?Instructions ?Recorded ?Confirmed hydroxychloroquine 200 mg tablet 200 mg PO BID 01/21/22 03/25/25 (Plaquenil) calcium carbonate 1,000 mg PO QDAY 01/30/22 03/25/25 ergocalciferol (vitamin D2) 10 mcg 10 mcg PO DAILY 06/13/22 03/25/25 (400 unit) tablet Lactobacillus acidophilus PO QDAY 06/14/22 03/23/25 [Probiotic Acidophilus] mycophenolate mofetil 500 mg tablet 1,500 mg PO BID 06/14/22 03/25/25 amoxicillin 500 mg tablet 2,000 mg PO DAILY 06/01/24 03/25/25 magnesium 200 mg tablet 200 mg PO QDAY 10/15/24 03/25/25 hydrocodone 5 mg-acetaminophen 325 1 tab PO BID PRN 02/17/25 03/25/25 mg tablet Previous Rx's ?Medication ?Instructions ?Recorded zolpidem 10 mg tablet 10 mg PO HS PRN insomnia #30 tabs 05/20/23 pantoprazole 40 mg tablet,delayed 40 mg PO QDAY #30 tabs 03/23/25 release (Protonix) topiramate 100 mg tablet (Topamax) 100 mg PO QDAY #30 tabs 03/23/25 Allergies Allergy/AdvReac Type Severity Reaction Status Date / Time alendronate sodium AdvReac Intermediate Diarrhea Verified 03/25/25 12:37 PFSH PFS Medical History (Updated 03/23/25 @ 09:24 by Alfredo Lozano MD) Osteoporosis ?M81.0 - Age-related osteoporosis without current pathological fracture (ICD-10) Sinusitis ?J32.9 - Chronic sinusitis, unspecified (ICD-10) Viral URI with cough ?J06.9 - Acute upper respiratory infection, unspecified (ICD-10) Breast pain, right ?N64.4 - Mastodynia (ICD-10) Right-sided chest pain ?R07.9 - Chest pain, unspecified (ICD-10) Right hip pain ?M25.551 - Pain in right hip (ICD-10) Piriformis syndrome ?G57.00 - Lesion of sciatic nerve, unspecified lower limb (ICD-10) TMJ arthropathy ?M26.659 - Arthropathy of unspecified temporomandibular joint (ICD-10) Obesity ?E66.9 - Obesity, unspecified (ICD-10) Dizziness ?R42 - Dizziness and giddiness (ICD-10) Migraine headache ?G43.909 - Migraine, unspecified, not intractable, without status migrainosus (ICD-10) Rib fractures (02/2023) ?S22.49XA - Multiple fractures of ribs, unspecified side, initial encounter for closed fracture (ICD-10) Insomnia ?G47.00 - Insomnia, unspecified (ICD-10) GERD (gastroesophageal reflux disease) ?K21.9 - Gastro-esophageal reflux disease without esophagitis (ICD-10) Systemic lupus erythematosus ?M32.9 - Systemic lupus erythematosus, unspecified (ICD-10) Sjogren's syndrome ?M35.00 - Sjogren syndrome, unspecified (ICD-10) Prothrombin gene mutation ?D68.52 - Prothrombin gene mutation (ICD-10) Fibromyalgia ?M79.7 - Fibromyalgia (ICD-10) Complex regional pain syndrome Claustrophobia ?F40.240 - Claustrophobia (ICD-10) Activated protein C resistance ?D68.51 - Activated protein C resistance (ICD-10) 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 - Infarction of spleen (ICD-10) Surgical History (Updated 10/17/24 @ 10:17 by Yoko Rodriguez MD) History of hysterectomy (~2004) ?Z90.710 - Acquired absence of both cervix and uterus (ICD-10) History of foot surgery ?Z98.890 - Other specified postprocedural states (ICD-10) History of colonoscopy (03/30/20) ?Z98.890 - Other specified postprocedural states (ICD-10) History of cervical spinal surgery ?Z98.890 - Other specified postprocedural states (ICD-10) History of bilateral ligation of fallopian tubes ?Z98.51 - Tubal ligation status (ICD-10) History of appendectomy ?Z90.49 - Acquired absence of other specified parts of digestive tract (ICD-10) Social History Narrative: Disabled How many days of moderate to strenuous exercise, like a brisk walk, did you do in the last 7 days: 2 Smoking Status: Former smoker Do you use any of these nicotine containing products: None How often do you have a drink containing alcohol: monthly or less Alcohol type: beer, wine and hard liquor How many standard drinks containing alcohol do you have on a typical day: 1 or 2 How often do you have six or more drinks on one occasion: Never AUDIT-C Alcohol total score: 1 Non-prescribed substance use: denies use Caffeine: Yes (COFFEE) Are you now , , , , never or living with a partner: Social isolation score (0-1 are the most socially isolated patients): 1 Are you using contraception or practicing any form of control: No Exam Const: Vital Signs, click to edit/add: Vital Signs - 24 hr 03/25/25 12:32 Temperature 98.2 F Pulse Rate [Right Pulse Oximeter] 89 Respiratory Rate 18 Blood Pressure [Ri ght Upper Arm] 162/84 H Pulse Oximetry 100 Oxygen Delivery Me thod Room Air Course Vital Signs Vital signs: Initial Vital Signs Temperature 98.2 F 03/25/25 12:32 Temperature Source Temporal Artery Scan 03/25/25 12:32 Pulse Rate 89 03/25/25 12:32 Pulse Rhythm Regular 03/25/25 12:32 Pulse Strength 3+ Normal 03/25/25 12:32 Respiratory Rate 18 03/25/25 12:32 Blood Pressure 162/84 H 03/25/25 12:32 Blood Pressure Mean 110 H 03/25/25 12:32 Blood Pressure Position Sitting 03/25/25 12:32 Pulse Oximetry 100 03/25/25 12:32 Oxygen Delivery Method Room Air 03/25/25 12:32 Vital Signs Temperature 98.2 F 03/25/25 12:32 Pulse Rate 89 03/25/25 12:32 Respiratory Rate 18 03/25/25 12:32 Blood Pressure 162/84 H 03/25/25 12:32 Pulse Oximetry 100 03/25/25 12:32 Oxygen Delivery Method Room Air 03/25/25 12:32 Temperature 98.2 F 03/25/25 12:32 Pulse Rate 89 03/25/25 12:32 Respiratory Rate 18 03/25/25 12:32 Blood Pressure 162/84 H 03/25/25 12:32 Pulse Oximetry 100 03/25/25 12:32 Oxygen Delivery Method Room Air 03/25/25 12:32 Discharge Plan Discharge Prescriptions: No Action ergocalciferol (vitamin D2) 10 mcg (400 unit) tablet 10 mcg PO DAILY pantoprazole [Protonix] 40 mg tablet,delayed release (DR/EC) 40 mg PO QDAY Qty: 30 3RF topiramate [Topamax] 100 mg tablet 100 mg PO QDAY Qty: 30 2RF calcium carbonate 500 mg calcium (1,250 mg) tablet 1,000 mg PO QDAY mycophenolate mofetil 500 mg tablet 1,500 mg PO BID amoxicillin 500 mg tablet 2,000 mg PO DAILY magnesium 200 mg tablet 200 mg PO QDAY hydrocodone-acetaminophen 5-325 mg tablet 1 tab PO BID PRN hydroxychloroquine [Plaquenil] 200 mg tablet 200 mg PO BID Lactobacillus acidophilus [Probiotic Acidophilus] PO QDAY zolpidem 10 mg tablet 10 mg PO HS PRN (Reason: insomnia) Qty: 30 0RF Follow Up/Referrals: Alfredo Lozano MD [Primary Care Provider, Internal Medicine]
--- NOTE | 2025-03-25 13:02 | ED.DIZZY ---
HPI - Dizziness General Chief Complaint: Dizziness/Vertigo Stated Complaint: Medication reaction: dizziness, cramping Time Seen by Provider: 03/25/25 12:42 History of Present Illness HPI Narrative: Patient is a 55-year-old woman who is actually my primary care patient. We had a recent visit and she expressed interest in weight loss. We did have a nice discussion elected to try small dose of Topamax. Patient took her 1st dose of Topamax approximately half an hour before arrival and developed extreme anxiety tingling in the left arm dry mouth most of which has resolved. He she has not been on a similar medicine in the past. She has NIH score of 0. She has had no fevers no chills no night sweats no residual symptoms. Patient is starting to feel somewhat better but is very shaken up by the effect of the medication. His case is complicated in that she has systemic lupus erythematosus. Related Data Home Medications ?Medication ?Instructions ?Recorded ?Confirmed hydroxychloroquine 200 mg tablet 200 mg PO BID 01/21/22 03/25/25 (Plaquenil) calcium carbonate 1,000 mg PO QDAY 01/30/22 03/25/25 ergocalciferol (vitamin D2) 10 mcg 10 mcg PO DAILY 06/13/22 03/25/25 (400 unit) tablet Lactobacillus acidophilus PO QDAY 06/14/22 03/23/25 [Probiotic Acidophilus] mycophenolate mofetil 500 mg tablet 1,500 mg PO BID 06/14/22 03/25/25 amoxicillin 500 mg tablet 2,000 mg PO DAILY 06/01/24 03/25/25 magnesium 200 mg tablet 200 mg PO QDAY 10/15/24 03/25/25 hydrocodone 5 mg-acetaminophen 325 1 tab PO BID PRN 02/17/25 03/25/25 mg tablet Previous Rx's ?Medication ?Instructions ?Recorded zolpidem 10 mg tablet 10 mg PO HS PRN insomnia #30 tabs 05/20/23 pantoprazole 40 mg tablet,delayed 40 mg PO QDAY #30 tabs 03/23/25 release (Protonix) topiramate 100 mg tablet (Topamax) 100 mg PO QDAY #30 tabs 03/23/25 Allergies Allergy/AdvReac Type Severity Reaction Status Date / Time alendronate sodium AdvReac Intermediate Diarrhea Verified 03/25/25 12:37 Review of Systems Status of ROS: Reports: 10 or more systems reviewed and unremarkable except as noted in History and below [facility] Medical History Osteoporosis ?M81.0 - Age-related osteoporosis without current pathological fracture (ICD-10) Sinusitis ?J32.9 - Chronic sinusitis, unspecified (ICD-10) Viral URI with cough ?J06.9 - Acute upper respiratory infection, unspecified (ICD-10) Breast pain, right ?N64.4 - Mastodynia (ICD-10) Right-sided chest pain ?R07.9 - Chest pain, unspecified (ICD-10) Right hip pain ?M25.551 - Pain in right hip (ICD-10) Piriformis syndrome ?G57.00 - Lesion of sciatic nerve, unspecified lower limb (ICD-10) TMJ arthropathy ?M26.659 - Arthropathy of unspecified temporomandibular joint (ICD-10) Obesity ?E66.9 - Obesity, unspecified (ICD-10) Dizziness ?R42 - Dizziness and giddiness (ICD-10) Migraine headache ?G43.909 - Migraine, unspecified, not intractable, without status migrainosus (ICD-10) Rib fractures (02/2023) ?S22.49XA - Multiple fractures of ribs, unspecified side, initial encounter for closed fracture (ICD-10) Insomnia ?G47.00 - Insomnia, unspecified (ICD-10) GERD (gastroesophageal reflux disease) ?K21.9 - Gastro-esophageal reflux disease without esophagitis (ICD-10) Systemic lupus erythematosus ?M32.9 - Systemic lupus erythematosus, unspecified (ICD-10) Sjogren's syndrome ?M35.00 - Sjogren syndrome, unspecified (ICD-10) Prothrombin gene mutation ?D68.52 - Prothrombin gene mutation (ICD-10) Fibromyalgia ?M79.7 - Fibromyalgia (ICD-10) Complex regional pain syndrome Claustrophobia ?F40.240 - Claustrophobia (ICD-10) Activated protein C resistance ?D68.51 - Activated protein C resistance (ICD-10) 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 - Infarction of spleen (ICD-10) Surgical History (Updated 10/17/24 @ 10:17 by Yoko Rodriguez MD) History of hysterectomy (~2004) ?Z90.710 - Acquired absence of both cervix and uterus (ICD-10) History of foot surgery ?Z98.890 - Other specified postprocedural states (ICD-10) History of colonoscopy (03/30/20) ?Z98.890 - Other specified postprocedural states (ICD-10) History of cervical spinal surgery ?Z98.890 - Other specified postprocedural states (ICD-10) History of bilateral ligation of fallopian tubes ?Z98.51 - Tubal ligation status (ICD-10) History of appendectomy ?Z90.49 - Acquired absence of other specified parts of digestive tract (ICD-10) Social History Narrative: Disabled How many days of moderate to strenuous exercise, like a brisk walk, did you do in the last 7 days: 2 Smoking Status: Former smoker Do you use any of these nicotine containing products: None How often do you have a drink containing alcohol: monthly or less Alcohol type: beer, wine and hard liquor How many standard drinks containing alcohol do you have on a typical day: 1 or 2 How often do you have six or more drinks on one occasion: Never AUDIT-C Alcohol total score: 1 Non-prescribed substance use: denies use Caffeine: Yes (COFFEE) Are you now , , , , never or living with a partner: Social isolation score (0-1 are the most socially isolated patients): 1 Are you using contraception or practicing any form of control: No Exam Narrative: Exam Narrative: EXAM GENERAL: Patient appears comfortable and well. EYES: No scleral icterus. LYMPH: No supraclavicular or cervical lymphadenopathy. SKIN: Visible skin seen during exam normal or with benign process only. EXT: No dependent lower extremity pedal edema. HEART: Regular rate and rhythm with no murmurs, rubs, or gallops. LUNGS: Clear to auscultation bilaterally with no crackles or wheezes. ABD: Soft, non tender, non distended. PSYCH: Good eye contact, speech is not pressured. Neurologic cranial nerves 2-12 grossly Const: Vital Signs, click to edit/add: Vital Signs - 24 hr 03/25/25 12:32 Temperature 98.2 F Pulse Rate [Right Pulse Oximeter] 89 Respiratory Rate 18 Blood Pressure [Ri ght Upper Arm] 162/84 H Pulse Oximetry 100 Oxygen Delivery Me thod Room Air Course Vital Signs Vital signs: Initial Vital Signs Temperature 98.2 F 03/25/25 12:32 Temperature Source Temporal Artery Scan 03/25/25 12:32 Pulse Rate 89 03/25/25 12:32 Pulse Rhythm Regular 03/25/25 12:32 Pulse Strength 3+ Normal 03/25/25 12:32 Respiratory Rate 18 03/25/25 12:32 Blood Pressure 162/84 H 03/25/25 12:32 Blood Pressure Mean 110 H 03/25/25 12:32 Blood Pressure Position Sitting 03/25/25 12:32 Pulse Oximetry 100 03/25/25 12:32 Oxygen Delivery Method Room Air 03/25/25 12:32 Vital Signs Temperature 98.2 F 03/25/25 12:32 Pulse Rate 89 03/25/25 12:32 Respiratory Rate 18 03/25/25 12:32 Blood Pressure 162/84 H 03/25/25 12:32 Pulse Oximetry 100 03/25/25 12:32 Oxygen Delivery Method Room Air 03/25/25 12:32 Temperature 98.2 F 03/25/25 12:32 Pulse Rate 89 03/25/25 12:32 Respiratory Rate 18 03/25/25 12:32 Blood Pressure 162/84 H 03/25/25 12:32 Pulse Oximetry 100 03/25/25 12:32 Oxygen Delivery Method Room Air 03/25/25 12:32 MDM - Dizziness MDM Narrative Medical decision making narrative: Feels most likely that she is having adverse reaction to the Topamax. We will stop the Topamax. Her vital signs and exam are normal with exception of mild hypertension. They do have my cell phone number in we will discharge her to get plenty of rest drink plenty fluids. Topamax and be in follow-up with me in the office. I did consider broad differential including but not limited to acute stroke TIA vasculitis lupus flare. Discharge Plan Discharge Clinical Impression: Drug side effects Patient Disposition: Home, Self-Care Condition: Stable Instructions: Adverse Drug Reaction (ED) Additional Instructions: Stop Topamax Continue to the remainder of your medication. Rest Fluids Follow-up with Dr. Lozano as needed Activity Level: No Restrictions Discharge Diet: Regular Prescriptions: No Action ergocalciferol (vitamin D2) 10 mcg (400 unit) tablet 10 mcg PO DAILY pantoprazole [Protonix] 40 mg tablet,delayed release (DR/EC) 40 mg PO QDAY Qty: 30 3RF topiramate [Topamax] 100 mg tablet 100 mg PO QDAY Qty: 30 2RF calcium carbonate 500 mg calcium (1,250 mg) tablet 1,000 mg PO QDAY mycophenolate mofetil 500 mg tablet 1,500 mg PO BID amoxicillin 500 mg tablet 2,000 mg PO DAILY magnesium 200 mg tablet 200 mg PO QDAY hydrocodone-acetaminophen 5-325 mg tablet 1 tab PO BID PRN hydroxychloroquine [Plaquenil] 200 mg tablet 200 mg PO BID Lactobacillus acidophilus [Probiotic Acidophilus] PO QDAY zolpidem 10 mg tablet 10 mg PO HS PRN (Reason: insomnia) Qty: 30 0RF Follow Up/Referrals: Alfredo Lozano MD [Primary Care Provider, Internal Medicine] Stand Alone Forms: [employer] Info Instructions
== END 2025-03-25 13:20 | disposition home or self-care (01) ==
LOC: ED 13:17
PROVIDERS: Emergency Provider Internal Medicine; PCP Internal Medicine
DX: R42 Dizziness and giddiness (principal); T42.6X5A Adverse effect of other antiepileptic and sedative-hypnotic drugs, initial encounter
CPT/HCPCS: 99283

== ENCOUNTER 2025-06-14 07:36 | Outpatient (CLI) | payer MEDICARE, SELFPAY ==
--- NOTE | 2025-06-14 08:00 | CRLHL7_ITS ---
For Patients: As a result of the Century Cures Act, medical imaging exams and procedure reports are released immediately into your electronic medical record. You may view this report before your referring provider. If you have questions, please contact your health care provider. Indication: chest abdomen pain Technique: CT Chest/Abd/Pelvis W/76 cc Isovue 370 IV contrast and water prep Please note that all CT scans at this facility use dose modulation, iterative reconstruction, and/or weight-based dosing when appropriate to reduce radiation dose to as low as reasonably achievable. Comparison: 07/08/2023, 04/17/2017 Findings: In the chest, the visualized thyroid is within normal limits. No mediastinal, hilar or axillary adenopathy. No aortic dissection or aneurysm. 2.4 cm hiatal hernia. No large pulmonary embolism. No pleural or pericardial effusion. Lungs are clear. No infiltrate, edema, pneumothorax or pulmonary nodule. No fibrosis. Postop changes lower cervical spine. No thoracic vertebral body compression fracture. In the abdomen, the liver is within normal limits. Normal gallbladder. Similar lobular contour of the spleen with associated calcifications. No adrenal nodule. Simple cyst lower pole left kidney laterally measures 3.3 cm. Normal right kidney. Pancreas is normal. Atherosclerotic changes. Incidental retroaortic left renal vein. No aneurysm or dissection. No portal venous thrombosis. No mesenteric or retroperitoneal adenopathy. In the pelvis, there is grade 1 spondylolytic spondylolisthesis of L5 on S1. No vertebral body compression fracture. Mild spurring at both hip joints. Mild chronic osteitis pubis. Normal bladder. Postop changes hysterectomy and appendectomy. A few scattered sigmoid diverticula noted. No diverticulitis. No bowel obstruction or free air. No free fluid. No abscess. No bowel wall thickening. No evidence of inflammatory bowel disease. No inguinal or pelvic sidewall adenopathy. No pelvic mass. Impression: No acute findings in the chest, abdomen or pelvis. Please note that all CT scans at this facility use dose modulation, iterative reconstruction, and/or weight-based dosing when appropriate to reduce radiation dose to as low as reasonably achievable. Dictated by Joe Torres MD @ 06/14/2025 9:24:54 AM (Electronically Signed)
== END 2025-06-14 07:37 | disposition home or self-care (01) ==
LOC: CT 07:37
PROVIDERS: PCP Internal Medicine; Visit Provider Internal Medicine
DX: R07.89 Other chest pain (principal); R10.9 Unspecified abdominal pain
CPT/HCPCS: 71260; 74177; Q9967